=== PATIENT | female | born 1980 | race Two or more races ===

== ENCOUNTER → 2020-06-19 14:16 | Outpatient (BNVA) | payer MEDICAID, SELFPAY | PROVIDERS: Visit Provider Obstetrics & Gynecology | DX: Z30.09 Encounter for other general counseling and advice on contraception (principal) | CPT/HCPCS: 99213 ==

== ENCOUNTER 2020-07-06 11:12 | Outpatient (REF) | payer MEDICAID, SELFPAY ==
--- NOTE | 2020-07-06 11:16 | MM_ITS ---
EXAMINATION: MM SCREENING DIGITAL BREAST TOMOSYNTHESIS, BILATERAL CLINICAL INFORMATION: Screening. Asymptomatic. The lifetime risk of breast cancer based on the Tyrer-Cuzick Model is 7.0%. COMPARISON: Mammography: June 18, 2017 and studies dating back to July 09, 2013 TECHNIQUE: Digital breast tomosynthesis is performed in both the craniocaudal and mediolateral oblique views along with computer-aided detection (CAD). Synthesized 2D images are generated from the tomosynthesis. FINDINGS: The breasts are heterogeneously dense, which may obscure small masses (ACR BI-RADS breast composition Category c). There are no significant masses, abnormal calcifications, or other abnormalities. MM/MM tomosynthesis screening BI IMPRESSION: There are no significant changes from prior study. ASSESSMENT: BI-RADS 1: Negative RECOMMENDATION: Routine annual mammography screening. This patient's information was entered into a reminder system with a target due date for their next mammogram.
== END 2020-07-06 11:13 | disposition home or self-care (01) ==
LOC: HO.MAMMO 11:12
PROVIDERS: Visit Provider Advanced Practice Midwife
DX: Z12.31 Encounter for screening mammogram for malignant neoplasm of breast (principal)
CPT/HCPCS: 77063; 77067

== ENCOUNTER 2020-07-07 08:59 | Outpatient (REF) | payer MEDICAID, SELFPAY | END 2020-07-07 09:00 | disposition home or self-care (01) | LOC: HO.LAB 08:59 | PROVIDERS: Visit Provider Internal Medicine | DX: Z20.828 Contact with and (suspected) exposure to other viral communicable diseases (principal) | CPT/HCPCS: C9803; U0003 ==

== ENCOUNTER 2020-08-03 12:34 | Outpatient (REF) | payer MEDICAID, SELFPAY | END 2020-08-03 12:35 | disposition home or self-care (01) | LOC: HO.LAB 12:34 | PROVIDERS: Visit Provider Internal Medicine | DX: Z20.828 Contact with and (suspected) exposure to other viral communicable diseases (principal) | CPT/HCPCS: C9803; U0003 ==

== ENCOUNTER 2020-09-01 14:53 | Outpatient (REF) | payer MEDICAID, SELFPAY | END 2020-09-01 14:54 | disposition home or self-care (01) | LOC: HO.LAB 14:53 | PROVIDERS: Visit Provider Internal Medicine | DX: Z20.828 Contact with and (suspected) exposure to other viral communicable diseases (principal) | CPT/HCPCS: 36415; C9803; U0003 ==

== ENCOUNTER → 2020-11-22 13:45 | Outpatient (BNVA) | payer MEDICAID, SELFPAY | PROVIDERS: Visit Provider Obstetrics & Gynecology | DX: Z30.09 Encounter for other general counseling and advice on contraception (principal) | CPT/HCPCS: 99212 ==

== ENCOUNTER 2020-11-23 06:46 | Day surgery (SDC) | payer MEDICAID, SELFPAY ==
[2020-11-16 12:10] VITALS: BMI 27.8
--- NOTE | 2020-11-22 10:21 | P.CONAN_ITS ---
Documented by User: Francia Triplett 11/22/20 10:22 HPI - Anesthesia Eval Consult details Narrative: 40yo F for Salpingectomy Laproscopic PMFSH Past Medical History Medical History Patient denies medical problems Family History Family History Maternal Grandmother Breast cancer Surgical History Surgical History No significant past surgical history Social History Social History (Updated 11/23/20 @ 07:24 by Estelle Fernández) Alcohol intake: current Alcohol intake frequency: holidays/special occasions only Smoking Status: Current some day smoker Cigarettes Per Day: 2 Smoked in Last 30 Days: Yes Use of substances other than those prescribed or required for medical reasons: Yes Substance Use Type: Marijuana Substance Use Frequency: Occasionally Last Used Substance: Hours (ago) Advance Directives Information Provided: No Recently lost weight without trying: No Gender identity: female Meds Allergies Allergy/AdvReac Type Severity Reaction Status Date / Time No Known Allergies Allergy Verified 11/22/20 13:58 [No Known Allergies*] Exam Exam Date and Time: November 22, 2020 1021 Height,Weight and Vital Signs: Height 5 ft 2 in Weight 68.946 kg Assessment and Plan Assessment Anesthesia Assessment: Chart Reviewed Documented by User: Estelle Fernández 11/23/20 07:47 [facility] Past Medical History Medical History Patient denies medical problems Family History Family History Maternal Grandmother Breast cancer Family history of problems with anesthesia: No Surgical History Surgical History No significant past surgical history History of Problems with Anesthesia: No (Never had anesthesia) Social History Social History (Updated 11/23/20 @ 07:24 by Estelle Fernández) Alcohol intake: current Alcohol intake frequency: holidays/special occasions only Smoking Status: Current some day smoker Cigarettes Per Day: 2 Smoked in Last 30 Days: Yes Use of substances other than those prescribed or required for medical reasons: Yes Substance Use Type: Marijuana Substance Use Frequency: Occasionally Last Used Substance: Hours (ago) Advance Directives Information Provided: No Recently lost weight without trying: No Gender identity: female Meds Allergies Allergy/AdvReac Type Severity Reaction Status Date / Time No Known Allergies Allergy Verified 11/22/20 13:58 [No Known Allergies*] Exam Height,Weight and Vital Signs: Vital Signs Temp Pulse Resp BP Pulse Ox 11/23/20 06:59 98.1 F 68 16 101/61 98 Pertinent Lab Results Pertinent Lab Results: Lab Results 11/23/20 11/23/20 Range/Units 07:03 07:30 Beta HCG, Quant < 2 mIU/mL Urine Test NEGATIVE (NEGATIVE) Airway Mallampati Class: II TM Dist: >3cm Neck ROM: Full Heart: RRR Lungs: CTAB Assessment and Plan Assessment Anesthesia Assessment: Anesthesia Plan Discussed and Chart Reviewed Final Anesthetic Review NPO: Yes ASA Class: II Final Preanesthetic Review: No Changes in Pt Med Stat, Meds/Allgs Chart Reviewed, Consent Obtained/Reviewed and Anes Risks/Benef Reviewed Patient Risk: Low Procedure Risk: Intermediate Assessment/Block/Sedation in SS: Assess/Block/Sedation-SS Anesthetic Plan Anesthetic Plan: GA Disposition: Standard PACU
[2020-11-23] VITALS (7 sets, daily range): BP systolic 101–144; BP diastolic 61–83; PULSE 58–74; RESP 16–18; TEMP 36.3–36.7; O2SAT 98–100
--- NOTE | 2020-11-23 07:14 | MHC.SHP ---
Pre-Procedural Eval Section A The patient is an INPATIENT: No Changes since office visit: No Cold of Flu in the past 2 weeks, No New Medical Problems, No Changes in Medication and No Patient answered all questions The History & Physical has been completed within 30 days and I have reviewed it.: Yes Section B Chief Complaint: Unwanted Fertility Allergies: Allergies Allergy/AdvReac Type Severity Reaction Status Date / Time No Known Allergies Allergy Verified 11/22/20 13:58 [No Known Allergies*] Plan I have reviewed the history and physical and performed a pertinent physical examination on my patient. No changes have occurred unless specified.
--- NOTE | 2020-11-23 07:15 | W.PM.OPN ---
Operative Note Operative Note Date of Service: 11/23/20 Narrative: Pre-Procedure Diagnosis: unwanted fertility Post-Op Diagnosis: unwanted fertility Procedures performed: laparoscopic bilateral salpingectomy Ms. Kiser is a 40 year old who has completed her family planning and desires a permanent form of sterilization. Surgical Risks: The patient was informed of the risks and benefits of the procedure. Risks included but were not limited to bleeding; infection; injury to the vulva, vagina, cervix, uterus intestines, bladder, nerves, and blood vessels. The patient was counseled on the risk of sterilization failure being about 1% on average. The patient was informed that in the event a occurs, the risk of ectopic is increased. The patient expressed understanding of the risks involved, all questions were answered, and the patient consented to the procedure. The patient had valid sterilization consent at the time of the procedure. The patient was taken to the operating room where a time out was performed to confirm correct patient and correct procedure. General anesthesia was established. The patient was then positioned on the operating table in the dorsal lithotomy position with the legs supported using stirrups. All pressure points were padded and a Taj hugger was placed to maintain control of core body temperature. The patient was then prepped and draped in the usual sterile fashion. A red rubber catheter was inserted and 25mL urine obtained (the patient voided shortly prior to the procedure). Attention was turned to the abdomen where a 5mm vertical infraumbilical incision was made. The 5mm trocar was introduced under direct visualization using the laparoscopy within the sleeve of the trocar. After intra-abdominal placement had been confirmed, the trocar was removed leaving the sleeve in place. The camera was introduced and pneumoperitoneum was established using carbon dioxide. Inspection of the abdominal cavity showed no gross abnormalities and there was no evidence of injury to the bowel, bladder, or vasculature. Attention was turned to the pelvis. The patient was placed into Trendelenburg position. The fallopian tubes and ovaries were visualized bilaterally. There were no abnormalities noted. A small incision was made on the patient's left approximately 2cm superior and 2cm medial to the left ASIS. A 5mm trocar was introduced through this incision under direct visualization with the laparoscope. A small incision was made on the patient's right approximately 2cm superior and 2cm medial to the right ASIS. The fallopian tubes were inspected bilaterally and the fimbriated ends of the fallopian tube were visualized bilaterally. The distal end of the right tube was grasped and lifted up and being careful to avoid the ovarian vessels, salpingectomy was performed walking the Ligasure device from the distal to the medial end of the tube, where it was cauterized and cut from the uterus at the cornua and removed through the trocar. The identical procedure was then performed on the left. The tubes were sent to pathology for analysis. The pneumoperitoneum was then evacuated. The laparoscope was removed and the trocar sleeves were removed. The skin incisions were closed with an interrupted 3-0 Vicryl suture and Dermabond was then applied. Good hemostasis was confirmed. The patient was transferred to the recovery room in stable condition. All needle, sponge, and instrument counts were noted to be correct x2 at the end of the procedure.
[2020-11-23] MEDS: Lactated Ringers 1,000 ML 100 ML IVCONT (07:24)
[2020-11-23] MEDS: Acetaminophen 325 MG TABLET 650 MG PO (07:25)
[2020-11-23 07:36] LABS: HCG Quantitative < 2 mIU/mL
[2020-11-23 07:44] LABS: UPreg QC Valid YES; Urine Pregnancy NEGATIVE (NEGATIVE)
[2020-11-23] MEDS: oxyCODONE HCl Immed Release 5 MG TABLET PO (09:06)
== END 2020-11-23 10:31 | disposition home or self-care (01) ==
LOC: HO.SSS 06:46
PROVIDERS: Anesthesiology; Visit Provider Obstetrics & Gynecology
PROC: (CPT 58661; principal; 2020-11-23 07:30)
DX: Z30.2 Encounter for sterilization (principal); F17.210 Nicotine dependence, cigarettes, uncomplicated; F12.90 Cannabis use, unspecified, uncomplicated
CPT/HCPCS: 58661; 36415; 81025; 84702; 88302; J1100; J2250; J2405; J3010

== ENCOUNTER 2020-12-21 12:14 | Outpatient (REF) | payer MEDICAID, SELFPAY ==
[2020-12-21 12:36] LABS: COVID-19 Test Negative (Negative)
== END 2020-12-21 12:15 | disposition home or self-care (01) ==
LOC: HO.LAB 12:14
PROVIDERS: Visit Provider Internal Medicine
DX: Z20.822 Contact with and (suspected) exposure to COVID-19 (principal)
CPT/HCPCS: 36415; 87635; C9803

== ENCOUNTER 2021-01-01 11:35 | Outpatient (REF) | payer MEDICAID, SELFPAY ==
[2021-01-01 12:03] LABS: COVID-19 Test Negative (Negative)
== END 2021-01-01 11:36 | disposition home or self-care (01) ==
LOC: HO.LAB 11:35
PROVIDERS: Visit Provider Internal Medicine
DX: Z20.822 Contact with and (suspected) exposure to COVID-19 (principal)
CPT/HCPCS: 36415; 87635; C9803

== ENCOUNTER 2021-02-13 10:28 | Outpatient (REF) | payer MEDICAID, SELFPAY ==
--- NOTE | ~2021-02-13 | XR_ITS ---
EXAMINATION: XR ELBOW, LEFT CLINICAL INFORMATION: Left elbow pain COMPARISON: None TECHNIQUE: AP, lateral, and oblique views of the left elbow. FINDINGS: The bones and soft tissues are normal. No fracture or joint effusion. Alignment is anatomic. Joint spaces are maintained. XR/XR elbow LT min 3V IMPRESSION: Normal left elbow.
== END 2021-02-13 10:29 | disposition home or self-care (01) ==
LOC: HO.XRAY 10:28
PROVIDERS: PCP Nurse Practitioner Family; Visit Provider Emergency Medicine
DX: M25.522 Pain in left elbow (principal)
CPT/HCPCS: 73080

== ENCOUNTER 2021-07-11 11:33 | Outpatient (REF) | payer MEDICAID, SELFPAY ==
--- NOTE | ~2021-07-11 | MM_ITS ---
EXAMINATION: MM SCREENING DIGITAL BREAST TOMOSYNTHESIS, BILATERAL CLINICAL INFORMATION: Screening. Asymptomatic. The lifetime risk of breast cancer based on the Tyrer-Cuzick Model is 10%. COMPARISON: Mammography: 07/06/2020, 06/18/2017, 07/05/2014, 07/09/2013 TECHNIQUE: Digital breast tomosynthesis is performed in both the craniocaudal and mediolateral oblique views along with computer-aided detection (CAD). Synthesized 2D images are generated from the tomosynthesis. FINDINGS: There are scattered areas of fibroglandular density (ACR BI-RADS breast composition Category b). Breast tissue composition borders on heterogeneously dense. Parenchymal pattern is similar to prior studies and there is no interval mass or architectural abnormality or developing density. The axilla and skin contours are unremarkable. Left breast regional calcifications mid central upper outer quadrant, increased from prior studies. Patient will be recalled to further characterize with additional magnification views. MM/MM tomosynthesis screening BI IMPRESSION: 1. Left: Calcifications regional mid central upper outer breast, increased. 2. Right: No mammographic evidence of malignancy. ASSESSMENT: BI-RADS 0: Incomplete - Need Additional Imaging Evaluation RECOMMENDATION: 1. Additional views of the left breast (magnification CC, magnification ML). 2. Radiology department staff will contact the patient for additional imaging. This patient's information was entered into a reminder system with a target due date for their next mammogram.
== END 2021-07-11 11:34 | disposition home or self-care (01) ==
LOC: HO.MAMMO 11:33
PROVIDERS: Visit Provider Nurse Practitioner Family
DX: Z12.31 Encounter for screening mammogram for malignant neoplasm of breast (principal)
CPT/HCPCS: 77063; 77067

== ENCOUNTER 2021-07-20 11:49 | Outpatient (REF) | payer MEDICAID, SELFPAY ==
--- NOTE | ~2021-07-20 | MM_ITS ---
EXAMINATION: MM DIAGNOSTIC DIGITAL MAMMOGRAPHY, LEFT CLINICAL INFORMATION: Recall from screening for increased calcifications central upper outer left breast COMPARISON: Mammography: 07/11/2021 and prior studies dating back to diagnostic exam 07/09/2013. TECHNIQUE: Digital mammography is performed in the following views: Magnification CC, magnification ML FINDINGS: There are scattered areas of fibroglandular density (ACR BI-RADS breast composition Category b). There are increased calcifications in the central 2:30-3:00 left breast. The calcifications are segmentally distributed and vary in size, most are round. There are some focal fine amorphous calcifications in this area as well. Results are discussed with the patient at time of visit. Stereotactic sampling recommended. MM/MM added views LT IMPRESSION: Increased calcifications anterior outer left breast. ASSESSMENT: BI-RADS 4: Suspicious (subcategory 4A: Low suspicion for malignancy) RECOMMENDATION: Stereotactic biopsy left breast calcifications. This patient's information was entered into a reminder system with a target due date for their next mammogram.
== END 2021-07-20 11:50 | disposition home or self-care (01) ==
LOC: HO.MAMMO 11:49
PROVIDERS: Visit Provider Nurse Practitioner Family
DX: R92.1 Mammographic calcification found on diagnostic imaging of breast (principal)
CPT/HCPCS: 77061; 77065

== ENCOUNTER → 2021-08-06 08:21 | Outpatient (BNVA) | payer MEDICAID, SELFPAY | PROVIDERS: PCP Nurse Practitioner Family; Referring Provider Nurse Practitioner Family; Visit Provider Surgery | DX: R92.1 Mammographic calcification found on diagnostic imaging of breast (principal) | CPT/HCPCS: 99202 ==

== ENCOUNTER 2021-08-08 07:57 | Outpatient (REF) | payer MEDICAID, SELFPAY ==
--- NOTE | ~2021-08-08 | MM_ITS ---
EXAMINATION: STEREOTACTIC TOMOSYNTHESIS-GUIDED VACUUM-ASSISTED BREAST BIOPSY, LEFT SPECIMEN RADIOGRAPH, LEFT POST PROCEDURE DIGITAL MAMMOGRAM, LEFT CLINICAL INFORMATION: Increased segmental calcifications central upper outer left breast. TC score 10%. COMPARISON: Mammography 07/20/2021, 07/11/2021, 07/06/2020. TECHNIQUE/PROCEDURE: Informed consent was obtained from the patient after discussion of the benefits, risks, and alternatives to biopsy today. Patient appeared to understand. Gave opportunity for questions. Patient signed consent form. BIOPSY TABLE: [employer] Affirm Prone Biopsy System. LESION: Calcifications mid outer left breast. LOCAL ANESTHESIA: 10 mL carbonated 1% lidocaine; 10 mL 1% lidocaine with epinephrine. DERMATOTOMY: Single skin desi dermatotomy performed. NEEDLE: [place] [employer]iva 9-gauge vacuum assisted core biopsy device. APPROACH: caudal cranial. TARGETING: Combination of digital breast tomosynthesis and stereotactic digital mammography used for targeting. CORES: 7. CLIP: [employer] SecurMark T-shaped marker. SPECIMEN RADIOGRAPH: Specimen radiograph is taken in separate room using digital mammography. The index calcifications are in the excised cores. There are over 50 calcifications in the cores. POST PROCEDURE UNILATERAL DIGITAL MAMMOGRAM: The post biopsy mammogram is performed in separate room using separate digital mammography equipment from the biopsy procedure. CC and ML views are obtained. There are scattered areas of fibroglandular density (breast composition category: b). The clip marker is in position. There is perhaps 6 mm accordion effect superiorly from the biopsy cavity. The calcifications are decreased at the biopsy site. No gross hematoma. The patient tolerated the procedure well. No immediate complications. Home instructions reviewed with the patient. Final pathology results are pending. MM/MM stereotactic biopsy LT IMPRESSION: 1. Digital tomosynthesis-guided core biopsy left breast with clip placement. 2. Specimen radiograph taken and post procedure mammogram. There is satisfactory positioning of the biopsy clip. 3. Final pathology results pending. An addendum report will be issued.
[2021-08-08] MEDS: Lidocaine HCl 1 % 20 ML VIAL 10 ML SUBCUT (08:54)
[2021-08-08] MEDS: Sodium Bicarbonate 8.4% 50 MEQ/50 ML VIAL SUBCUT (08:57)
== END 2021-08-08 07:58 | disposition home or self-care (01) ==
LOC: HO.MAMMO 07:57
PROVIDERS: PCP Nurse Practitioner Family; Visit Provider Surgery
DX: R92.1 Mammographic calcification found on diagnostic imaging of breast (principal)
CPT/HCPCS: 19081; 88305; 88341; 88342; A4648

== ENCOUNTER → 2021-08-13 09:00 | Outpatient (BNVA) | payer MEDICAID, SELFPAY | PROVIDERS: PCP Nurse Practitioner Family; Referring Provider Nurse Practitioner Family; Visit Provider Surgery | DX: R92.1 Mammographic calcification found on diagnostic imaging of breast (principal) | CPT/HCPCS: 99212 ==

== ENCOUNTER 2022-05-13 11:43 | Outpatient (REF) | payer MEDICAID, SELFPAY ==
[2022-05-13 13:30] LABS: MANUAL DIFF FLAG NO
[2022-05-13 13:37] LABS: Basophils Absolute Auto 0.1 X10*3/uL (0.0-0.2); Basophils Percent Auto 0.6 % (0-2); Eosinophils Percent Auto 0.3 % (0-4); Hematocrit 36.6 % (37.0-47.0); Hemoglobin 12.3 g/dl (12.0-16.0); Imm Gran Abs Auto 0.04 X10*3/uL (0.00-0.03); Imm Gran Pct Auto 0.5 % (0.0-0.4); Lymphocytes Absolute Auto 3.2 X10*3/uL (1.2-4.9); Lymphocytes Percent Auto 36.9 % (20-40); Mean Corpuscular HGB Conc 33.6 g/dl (31.0-35.0); Mean Corpuscular Hemoglobin 31.5 pg (27.0-33.0); Mean Corpuscular Volume 93.6 fL (80.0-98.0); Mean Platelet Volume 10.5 fL (9.4-12.3); Monocytes Absolute Auto 0.7 X10*3/uL (0.1-1.2); Monocytes Percent Auto 7.7 % (2-11); Neutrophils Absolute Auto 4.7 x10*3/uL (2.0-8.3); Platelet Count 225 X10*3/uL (160-400); Red Blood Count 3.91 X10*6/uL (4.20-5.50); Red Cell Distribution Width 12.2 % (11.0-16.0); White Blood Count 8.8 X10*3/uL (4.8-10.8)
[2022-05-13 14:00] LABS: Alanine Aminotransferase 22 U/L (0-31); Albumin Level 4.2 g/dL (3.5-5.0); Alkaline Phosphatase 59 U/L (39-117); Anion Gap 15 (12-20); Aspartate Amino Transferase 17 U/L (5-31); Bilirubin Total 0.5 mg/dL (0.0-1.0); Blood Urea Nitrogen 11 mg/dL (9-16); Calcium 9.1 mg/dL (8.4-10.2); Carbon Dioxide 22 mmol/L (22-29); Chloride 105 mmol/L (96-108); Cholesterol 214 mg/dL; Estimated Glomerular Filt Rate > 60; Glucose Fasting 84 mg/dL (60-99); HDL Cholesterol 68 mg/dL; LDL Cholesterol Calculated 132 mg/dl; Sodium 138 mmol/L (135-145); Total Protein 7.1 g/dL (6.5-8.0); Triglycerides 72 mg/dL
[2022-05-13 14:24] LABS: Thyroid Stimulating Hormone 1.35 uIU/mL (0.32-4.0)
[2022-05-13 17:07] LABS: CT PCR NOT DETECTED (Not Detect.); NG PCR NOT DETECTED (Not Detect.)
== END 2022-05-13 11:44 | disposition home or self-care (01) ==
LOC: HO.10HDL 11:43
PROVIDERS: Visit Provider Internal Medicine
DX: Z00.00 Encounter for general adult medical examination without abnormal findings (principal); Z11.3 Encounter for screening for infections with a predominantly sexual mode of transmission; N39.3 Stress incontinence (female) (male)
CPT/HCPCS: 80053; 80061; 84443; 85025; 87491; 87591

== ENCOUNTER 2022-07-22 10:19 | Outpatient (REF) | payer MEDICAID, SELFPAY ==
[2022-07-23 08:55] LABS: BV Int Neg Control Negative (Negative); BV Int Pos Control Positive (Positive)
[2022-07-25 11:38] LABS: HPV mRNA E6/E7 rflx Not Detected (Not Detected)
== END 2022-07-22 10:20 | disposition home or self-care (01) ==
LOC: HO.LNP 10:19
PROVIDERS: Visit Provider Advanced Practice Midwife
DX: Z01.419 Encounter for gynecological examination (general) (routine) without abnormal findings (principal)
CPT/HCPCS: 87480; 87491; 87510; 87591; 87624; 87660; 88142

== ENCOUNTER 2022-07-26 19:32 | Emergency (ER) | payer MEDICAID, SELFPAY ==
--- NOTE | ~2022-07-26 | CT_ITS ---
CT HEAD WITHOUT CONTRAST CLINICAL INFORMATION: Right-sided numbness. COMPARISON: None available. TECHNIQUE: Contiguous axial imaging was performed from the skull base to vertex without intravenous administration of contrast. This CT examination was performed using dose optimization techniques as appropriate, variously including the following: *Automated exposure control *Adjustment of mA and/or kV according to patient size (this includes techniques or standardized protocols for targeted exams where dose is matched to indication/reason for exam; i.e. extremities or head) *Use of iterative reconstruction technique FINDINGS: There is no intracranial hemorrhage, hydrocephalus, extra-axial surface collection, midline shift, or other herniation pattern. Cramer to white matter differentiation is diffusely maintained without evidence of an evolved acute territorial infarct. The basilar cisterns are preserved. No significant soft tissue abnormality. No acute osseous abnormality. The paranasal sinuses and the mastoid air cells are well aerated. CT/CT head/brain wo IV con IMPRESSION: No acute intracranial abnormality.
--- NOTE | ~2022-07-26 | XR_ITS ---
EXAMINATION: XR chest 2V CLINICAL INFORMATION: Reason for Exam right sided chest pain COMPARISON: None TECHNIQUE: 2 views of the chest FINDINGS: Calcified left lower lobe granuloma. Lungs are otherwise clear. No pneumothorax or pleural effusion. Normal cardiomediastinal silhouette. XR/XR chest 2V IMPRESSION: Calcified left lower lobe granuloma. Lungs are otherwise clear.
--- NOTE | 2022-07-26 20:15 | ECG_ITS ---
Test Reason : chest pain Blood Pressure : / mmHG Vent. Rate : 066 BPM Atrial Rate : 066 BPM P-R Int : 148 ms QRS Dur : 082 ms QT Int : 378 ms P-R-T Axes : 066 031 008 degrees QTc Int : 396 ms Normal sinus rhythm Normal ECG No previous ECGs available Referred By: Eda Tejada Electronically Signed By:David Garibay
--- NOTE | 2022-07-26 20:15 | ED.GENADULT ---
HPI - General Adult General Chief complaint: General Medical Stated complaint: numbness on face and r arm Time Seen by Provider: 07/26/22 21:25 Source: patient Mode of arrival: ambulatory Limitations: no limitations Related Data Home Medications Medication Instructions Recorded Confirmed No Known Home Meds 07/22/22 07/22/22 Allergies Allergy/AdvReac Type Severity Reaction Status Date / Time No Known Allergies Allergy Verified 07/22/22 09:35 [No Known Allergies*] [facility] Past Medical History Medical History Breast calcification, left Patient denies medical problems Surgical History Hx of tubal ligation Family History Family History Maternal Grandmother Breast cancer Other Lung cancer Social History Social History Alcohol intake: current Alcohol intake frequency: holidays/special occasions only Cigarettes Per Day: 2 Substance Use Type: Marijuana Advance Directives: No Advance Directives Information Provided: No Gender identity: Female Physical Exam ED Vital Signs: Vital Signs - 24 hr 07/26/22 20:17 Temperature 97.9 F Pulse Rate 87 Respiratory Rate 18 Blood Pressure 140/85 H Pulse Oximetry 100 Oxygen Delivery Method Room Air BMI result Body Mass Index 31.1 Course Course Course Narrative: RME performed and completed by Eda Tejada PA-C. Patient is a 42 year old female presenting to the emergency department with right sided arm / chest pain and right sided arm and face numbness. CBC, CMP, Mag, Troponin, EKG, CXR, and head CT ordered. Patient to be placed back in the waiting room pending results and bed availability. Patient seen by Dr. Kirkland who created and completed a separate note, patient ultimately left against medical advice. Medical Decision Making Lab Data Result diagrams: 07/26/22 21:39 07/26/22 22:50 Labs: Lab Results 07/26/22 07/26/22 07/26/22 Range/Units 21:39 21:39 21:39 WBC 6.8 (4.8-10.8) X10*3/uL RBC 4.00 L (4.20-5.50) X10*6/uL Hgb 12.7 (12.0-16.0) g/dl Hct 36.7 L (37.0-47.0) % MCV 91.8 (80.0-98.0) fL MCH 31.8 (27.0-33.0) pg MCHC 34.6 (31.0-35.0) g/dl RDW 12.0 (11.0-16.0) % Plt Count 254 (160-400) X10*3/uL MPV 9.7 (9.4-12.3) fL Immature Gran % (Auto) 0.1 (0.0-0.4) % Neut % (Auto) 49.6 (45-73) % Lymph % (Auto) 38.8 (20-40) % [place] % (Auto) 10.4 (2-11) % Eos % (Auto) 0.4 (0-4) % Baso % (Auto) 0.7 (0-2) % Lymph # (Auto) 2.6 (1.2-4.9) X10*3/uL [place] # (Auto) 0.7 (0.1-1.2) X10*3/uL Eos # (Auto) 0.0 (0.0-0.4) X10*3/uL Baso # (Auto) 0.1 (0.0-0.2) X10*3/uL Abs Immat Gran (auto) 0.01 (0.00-0.03) X10*3/uL Absolute Neuts (auto) 3.4 (2.0-8.3) x10*3/uL Absolute Nucleated RBC 0.000 (0.0-0.012) X10*3/uL Nucleated RBC % (auto) 0.0 (0.0-0.2) /100WBC Sodium 143 (135-145) mmol/L Potassium 3.4 (3.3-5.1) mmol/L Chloride 106 (96-108) mmol/L Carbon Dioxide 26 (22-29) mmol/L Anion Gap 14 (12-20) BUN 9 (9-16) mg/dL Creatinine 0.78 (0.5-1.4) mg/dL Estim Creat Clear Calc 86.0 Estimated GFR > 60 Random Glucose 95 (60-115) mg/dL Calcium 9.9 D (8.4-10.2) mg/dL Magnesium 2.2 (1.6-2.6) mg/dL Total Bilirubin 0.4 (0.0-1.0) mg/dL AST 44 H D (5-31) U/L ALT 56 H (0-31) U/L Alkaline Phosphatase 59 (39-117) U/L Troponin I High Sens < 3.5 (<3.5-17.0) ng/L Total Protein 7.5 (6.5-8.0) g/dL Albumin 4.6 (3.5-5.0) g/dL Beta HCG, Quant < 2 mIU/mL COVID-19 ([facility]) (Negative) COVID-19 Clin Com 07/26/22 07/26/22 Range/Units 22:50 22:50 WBC (4.8-10.8) X10*3/uL RBC (4.20-5.50) X10*6/uL Hgb (12.0-16.0) g/dl Hct (37.0-47.0) % MCV (80.0-98.0) fL MCH (27.0-33.0) pg MCHC (31.0-35.0) g/dl RDW (11.0-16.0) % Plt Count (160-400) X10*3/uL MPV (9.4-12.3) fL Immature Gran % (Auto) (0.0-0.4) % Neut % (Auto) (45-73) % Lymph % (Auto) (20-40) % [place] % (Auto) (2-11) % Eos % (Auto) (0-4) % Baso % (Auto) (0-2) % Lymph # (Auto) (1.2-4.9) X10*3/uL [place] # (Auto) (0.1-1.2) X10*3/uL Eos # (Auto) (0.0-0.4) X10*3/uL Baso # (Auto) (0.0-0.2) X10*3/uL Abs Immat Gran (auto) (0.00-0.03) X10*3/uL Absolute Neuts (auto) (2.0-8.3) x10*3/uL Absolute Nucleated RBC (0.0-0.012) X10*3/uL Nucleated RBC % (auto) (0.0-0.2) /100WBC Sodium 143 (135-145) mmol/L Potassium 3.6 (3.3-5.1) mmol/L Chloride 107 (96-108) mmol/L Carbon Dioxide 27 (22-29) mmol/L Anion Gap 13 (12-20) BUN 10 (9-16) mg/dL Creatinine 0.76 (0.5-1.4) mg/dL Estim Creat Clear Calc 88.3 Estimated GFR > 60 Random Glucose 104 (60-115) mg/dL Calcium 9.5 (8.4-10.2) mg/dL Magnesium (1.6-2.6) mg/dL Total Bilirubin 0.4 (0.0-1.0) mg/dL AST 38 H (5-31) U/L ALT 50 H (0-31) U/L Alkaline Phosphatase 53 (39-117) U/L Troponin I High Sens (<3.5-17.0) ng/L Total Protein 6.7 (6.5-8.0) g/dL Albumin 4.2 (3.5-5.0) g/dL Beta HCG, Quant mIU/mL COVID-19 ([facility]) Negative (Negative) COVID-19 Clin Com See Note Discharge Plan Discharge Clinical Impression: Brain TIA, Chest pain Patient Disposition: Left Against Medical Advice Instructions: Transient Ischemic Attack (ED), Chest Pain (DC) Prescriptions: No Action No Known Home Meds Referrals: [facility] [Primary Care Provider] - Stand Alone Forms: Against Medical Advice Interventions: ED Discharge Assessment Last Done: 07/26/22 23:24 Discharge Date/Time: 07/26/22 23:28
[2022-07-26 20:17] VITALS: BP 140/85; PULSE 87; RESP 18; TEMP 36.6; O2SAT 100; BMI 31.1
[2022-07-26 21:58] LABS: MANUAL DIFF FLAG NO
[2022-07-26 21:59] LABS: Basophils Absolute Auto 0.1 X10*3/uL (0.0-0.2); Basophils Percent Auto 0.7 % (0-2); Eosinophils Percent Auto 0.4 % (0-4); Hematocrit 36.7 % (37.0-47.0); Hemoglobin 12.7 g/dl (12.0-16.0); Imm Gran Abs Auto 0.01 X10*3/uL (0.00-0.03); Imm Gran Pct Auto 0.1 % (0.0-0.4); Lymphocytes Absolute Auto 2.6 X10*3/uL (1.2-4.9); Lymphocytes Percent Auto 38.8 % (20-40); Mean Corpuscular HGB Conc 34.6 g/dl (31.0-35.0); Mean Corpuscular Hemoglobin 31.8 pg (27.0-33.0); Mean Corpuscular Volume 91.8 fL (80.0-98.0); Mean Platelet Volume 9.7 fL (9.4-12.3); Monocytes Absolute Auto 0.7 X10*3/uL (0.1-1.2); Monocytes Percent Auto 10.4 % (2-11); Neutrophils Absolute Auto 3.4 x10*3/uL (2.0-8.3); Neutrophils Percent Auto 49.6 % (45-73); Platelet Count 254 X10*3/uL (160-400); White Blood Count 6.8 X10*3/uL (4.8-10.8)
[2022-07-26 22:15] LABS: Alanine Aminotransferase 56 U/L (0-31); Albumin Level 4.6 g/dL (3.5-5.0); Alkaline Phosphatase 59 U/L (39-117); Anion Gap 14 (12-20); Aspartate Amino Transferase 44 U/L (5-31); Blood Urea Nitrogen 9 mg/dL (9-16); Calcium 9.9 mg/dL (8.4-10.2); Carbon Dioxide 26 mmol/L (22-29); Chloride 106 mmol/L (96-108); Estimated Glomerular Filt Rate > 60; Glucose Random 95 mg/dL (60-115); Magnesium 2.2 mg/dL (1.6-2.6); Potassium 3.4 mmol/L (3.3-5.1); Sodium 143 mmol/L (135-145); Total Protein 7.5 g/dL (6.5-8.0)
--- NOTE | 2022-07-26 22:19 | ED.GENADULT ---
HPI - General Adult General Chief complaint: General Medical Stated complaint: numbness on face and r arm Time Seen by Provider: 07/26/22 21:25 Source: patient Mode of arrival: ambulatory Limitations: no limitations History of Present Illness HPI narrative: Patient is a 42-year-old presents today with having episode of right arm right shoulder right chest right face numbness and pain. Patient symptoms last about 20 minutes. Was sitting driving at the time. Not associated with any diaphoresis. No leg swelling. No history of diabetes. Positive history of high cholesterol positive previous history of smoking no history of [place] no family history of coronary artery disease. Symptoms improved gradually over time. Had a 2nd episode while patient was eating dinner. Has no history of being on control. No history of leg swelling. No history of anxiety. No coughing no congestion or upper respiratory symptoms. Patient is from home. Related Data Home Medications Medication Instructions Recorded Confirmed No Known Home Meds 07/22/22 07/22/22 Allergies Allergy/AdvReac Type Severity Reaction Status Date / Time No Known Allergies Allergy Verified 07/22/22 09:35 [No Known Allergies*] Review of Systems Review of Systems: Positive right-sided chest pain Yes all other systems are reviewed and are negative PMFSH Past Medical History Attestation statement: The following information was validated with the patient. Medical History Breast calcification, left Patient denies medical problems Surgical History Hx of tubal ligation Family History Family History Maternal Grandmother Breast cancer Other Lung cancer Social History Social History Alcohol intake: current Alcohol intake frequency: holidays/special occasions only Cigarettes Per Day: 2 Substance Use Type: Marijuana Advance Directives: No Advance Directives Information Provided: No Gender identity: Female Physical Exam ED Vital Signs: Vital Signs - 24 hr 07/26/22 20:17 Temperature 97.9 F Pulse Rate 87 Respiratory Rate 18 Blood Pressure 140/85 H Pulse Oximetry 100 Oxygen Delivery Method Room Air BMI result Body Mass Index 31.1 Appearance: Alert. Oriented X3. No acute distress. Eyes: Pupils equal, round and reactive to light. ENT: Pharynx normal. Neck: Normal inspection. Neck supple. No lymph nodes noted. No crepitus CVS: Normal heart rate and rhythm. Pulses normal. Normal S1 and S2 Respiratory: No respiratory distress. Breath sounds normal. No Wheezing. No rales Abdomen: Soft and nontender. No rigidity. No distention. good BS x4 Skin: Skin warm and dry. Normal skin color. Normal skin turgor. Extremities: No lower extremity edema. Neurovascular intact to all extremities. No Lacerations. No Rash Neuro: Oriented X 3. No motor deficit. No sensory deficit. Moving all extermities. No slurred speech NIH Stroke Scale Internal: Initial- Upon Arrival Level of Consciousness: Alert Level of Consciousness Questions: Answers both questions correctly Level of Consciousness Commands: Performs both tasks correctly Best Gaze: Normal Visual: No visual loss Facial Palsy: Normal Motor Arm (Right): No drift Motor Arm (Left): No drift Motor Leg (Right): No drift Motor Leg (Left): No drift Limb Ataxia: Absent Sensory: Normal Best Language: No aphasia Dysarthia: Normal Extinction and Inattention: No abnormality Score: 0 Medical Decision Making MDM Narrative Medical decision making narrative: Patient's EKG showed a sinus pattern heart rate is 70 VA QRS QT within normal limits is no acute ST segment elevation. Chest pain is atypical for ACS. Awaiting labs. Awaiting electrolytes. Question numbness to the right arm legs face happen at the same time as when she has the pain. Question TIA. Will likely admit patient for observation overnight. Currently in stable condition Had a long discussion with patient. She does not want to stay she understood the risk of a mini-stroke. Understood the risk of a larger stroke coming up. Understood the risk of [place]. Is leaving against medical advice patient explained she can come back at any time. He states understanding. Lab Data Result diagrams: 07/26/22 21:39 07/26/22 21:39 Labs: Lab Results 07/26/22 07/26/22 07/26/22 Range/Units 21:39 21:39 21:39 WBC 6.8 (4.8-10.8) X10*3/uL RBC 4.00 L (4.20-5.50) X10*6/uL Hgb 12.7 (12.0-16.0) g/dl Hct 36.7 L (37.0-47.0) % MCV 91.8 (80.0-98.0) fL MCH 31.8 (27.0-33.0) pg MCHC 34.6 (31.0-35.0) g/dl RDW 12.0 (11.0-16.0) % Plt Count 254 (160-400) X10*3/uL MPV 9.7 (9.4-12.3) fL Immature Gran % (Auto) 0.1 (0.0-0.4) % Neut % (Auto) 49.6 (45-73) % Lymph % (Auto) 38.8 (20-40) % [place] % (Auto) 10.4 (2-11) % Eos % (Auto) 0.4 (0-4) % Baso % (Auto) 0.7 (0-2) % Lymph # (Auto) 2.6 (1.2-4.9) X10*3/uL [place] # (Auto) 0.7 (0.1-1.2) X10*3/uL Eos # (Auto) 0.0 (0.0-0.4) X10*3/uL Baso # (Auto) 0.1 (0.0-0.2) X10*3/uL Abs Immat Gran (auto) 0.01 (0.00-0.03) X10*3/uL Absolute Neuts (auto) 3.4 (2.0-8.3) x10*3/uL Absolute Nucleated RBC 0.000 (0.0-0.012) X10*3/uL Nucleated RBC % (auto) 0.0 (0.0-0.2) /100WBC Sodium 143 (135-145) mmol/L Potassium 3.4 (3.3-5.1) mmol/L Chloride 106 (96-108) mmol/L Carbon Dioxide 26 (22-29) mmol/L Anion Gap 14 (12-20) BUN 9 (9-16) mg/dL Creatinine 0.78 (0.5-1.4) mg/dL Estim Creat Clear Calc 86.0 Estimated GFR > 60 Random Glucose 95 (60-115) mg/dL Calcium 9.9 D (8.4-10.2) mg/dL Magnesium 2.2 (1.6-2.6) mg/dL AST 44 H D (5-31) U/L ALT 56 H (0-31) U/L Alkaline Phosphatase 59 (39-117) U/L Troponin I High Sens < 3.5 (<3.5-17.0) ng/L Total Protein 7.5 (6.5-8.0) g/dL Albumin 4.6 (3.5-5.0) g/dL Discharge Plan Discharge Clinical Impression: Brain TIA, Chest pain Patient Disposition: Left Against Medical Advice Instructions: Transient Ischemic Attack (ED), Chest Pain (DC) Prescriptions: No Action No Known Home Meds Referrals: [facility] [Primary Care Provider] - Stand Alone Forms: Against Medical Advice
[2022-07-26 22:20] LABS: Troponin-I High Sensitivity < 3.5 ng/L (<3.5-17.0)
[2022-07-26 23:08] LABS: HCG Quantitative < 2 mIU/mL
[2022-07-26 23:21] LABS: COVID-19 Test Negative (Negative)
[2022-07-26 23:25] LABS: Alanine Aminotransferase 50 U/L (0-31); Albumin Level 4.2 g/dL (3.5-5.0); Alkaline Phosphatase 53 U/L (39-117); Anion Gap 13 (12-20); Aspartate Amino Transferase 38 U/L (5-31); Blood Urea Nitrogen 10 mg/dL (9-16); Calcium 9.5 mg/dL (8.4-10.2); Carbon Dioxide 27 mmol/L (22-29); Chloride 107 mmol/L (96-108); Creatinine Clr Calc Pharmacy 88.3; Estimated Glomerular Filt Rate > 60; Glucose Random 104 mg/dL (60-115); Potassium 3.6 mmol/L (3.3-5.1); Sodium 143 mmol/L (135-145); Total Protein 6.7 g/dL (6.5-8.0)
[2022-07-26 23:25] LABS: Bilirubin Total 0.4 mg/dL (0.0-1.0)
[2022-07-26 23:41] LABS: Bilirubin Total 0.4 mg/dL (0.0-1.0)
== END 2022-07-26 23:28 | disposition left against medical advice (07) ==
PROVIDERS: Physician Assistant Medical; Emergency Provider Emergency Medicine Emergency Medical Services
DX: G45.9 Transient cerebral ischemic attack, unspecified (principal); R07.89 Other chest pain; R20.0 Anesthesia of skin; F17.210 Nicotine dependence, cigarettes, uncomplicated; Z71.6 Tobacco abuse counseling; Z20.822 Contact with and (suspected) exposure to COVID-19; Z79.899 Other long term (current) drug therapy
CPT/HCPCS: 36415; 70450; 71046; 80053; 83735; 84484; 84702; 85025; 87635; 93005; 99283

== ENCOUNTER 2022-10-07 10:01 | Outpatient (REF) | payer MEDICAID, SELFPAY ==
--- NOTE | ~2022-10-07 | MM_ITS ---
EXAMINATION: MM SCREENING DIGITAL BREAST TOMOSYNTHESIS, BILATERAL CLINICAL INFORMATION: Screening. Asymptomatic. Left stereotactic biopsy 08/08/2021 (benign breast tissue with papilloma formation, stromal sclerosis, adenosis and calcifications. Multiple papillomas measuring up to 3 mm in greatest dimension. No atypia or malignancy). The lifetime risk of breast cancer based on the Tyrer-Cuzick Model is 11%. COMPARISON: Mammography: 08/08/2021, 07/20/2021, 07/11/2021, 07/06/2020 TECHNIQUE: Digital breast tomosynthesis is performed in both the craniocaudal and mediolateral oblique views along with computer-aided detection (CAD). Synthesized 2D images are generated from the tomosynthesis. FINDINGS: There are scattered areas of fibroglandular density (ACR BI-RADS breast composition Category b). Parenchymal pattern is similar to prior studies. There is no developing density or interval mass or architectural abnormality. There is biopsy clip marker mid upper outer left breast with regional calcifications. The axilla and skin contours are unremarkable. No significant changes. MM/MM tomosynthesis screening BI IMPRESSION: No significant changes from prior studies. ASSESSMENT: BI-RADS 2: Benign RECOMMENDATION: Routine annual mammography screening. This patient's information was entered into a reminder system with a target due date for their next mammogram.
== END 2022-10-07 10:02 | disposition home or self-care (01) ==
LOC: HO.MAMMO 10:01
PROVIDERS: Visit Provider Advanced Practice Midwife
DX: Z12.31 Encounter for screening mammogram for malignant neoplasm of breast (principal)
CPT/HCPCS: 77063; 77067

== ENCOUNTER 2022-10-30 05:49 | Emergency (ER) | payer MEDICAID, SELFPAY ==
--- NOTE | ~2022-10-30 | XR_ITS ---
EXAMINATION: XR FOOT, LEFT CLINICAL INFORMATION: Pain status post fall COMPARISON: None TECHNIQUE: AP, lateral, and oblique views of the left foot. FINDINGS: The bones and soft tissues are normal. No fracture. Alignment is anatomic. Joint spaces are maintained. XR/XR foot LT min 3V IMPRESSION: Normal left foot.
[2022-10-30 06:14] VITALS: BP 99/56; PULSE 70; RESP 16; TEMP 36.8; O2SAT 98; BMI 29.6
--- NOTE | 2022-10-30 07:02 | ED.LOWEXIN ---
HPI - Extremity Injury (Lower) General Chief Complaint: Extremity Injury, Lower Stated Complaint: fell down stairs hurt left foot Time Seen by Provider: 10/30/22 06:45 History of Present Illness HPI Narrative: Patient is 42 years old status post accidental fall complaining of pain to the left foot. Pain on ambulation. Patient fell down to steps of stairs. No head injury pain no nausea no vomiting. No neck pain. Patient is from home. No chest pain or shortness of breath no abdominal pain. No focal weakness Related Data Previous Rx's Medication Instructions Recorded ibuprofen 400 mg tablet 400 mg PO Q6H PRN pain #20 tabs 10/30/22 Allergies Allergy/AdvReac Type Severity Reaction Status Date / Time No Known Allergies Allergy Verified 10/30/22 06:18 [No Known Allergies*] Review of Systems Review of Systems: Positive pain to the left foot Yes all other systems are reviewed and are negative COUNTS INCLUDE 234 BEDS AT THE [facility] Past Medical History Attestation statement: The following information was validated with the patient. Medical History Breast calcification, left Patient denies medical problems Surgical History Hx of tubal ligation Family History Family History Maternal Grandmother Breast cancer Other Lung cancer Social History Social History Alcohol intake: current Alcohol intake frequency: holidays/special occasions only Cigarettes Per Day: 2 Substance Use Type: Marijuana Advance Directives: No Advance Directives Information Provided: Yes Gender identity: Female Physical Exam Vital Signs: Vital Signs: Last Vital Signs Temp 98.2 F 10/30/22 06:14 Pulse 70 10/30/22 06:14 Resp 16 10/30/22 06:14 BP 99/56 L 10/30/22 06:14 Pulse Ox 98 10/30/22 06:14 O2 Del Method 10/30/22 06:14 BMI result Body Mass Index 29.6 Appearance: Alert. Oriented X3. No acute distress. Eyes: Pupils equal, round and reactive to light. ENT: Pharynx normal. Neck: Normal inspection. Neck supple. No lymph nodes noted. No crepitus CVS: Normal heart rate and rhythm. Pulses normal. Normal S1 and S2 Respiratory: No respiratory distress. Breath sounds normal. No Wheezing. No rales Abdomen: Soft and nontender. No rigidity. No distention. good BS x4 Skin: Skin warm and dry. Normal skin color. Normal skin turgor. Extremities: No lower extremity edema. Examination of the left foot and ankle- Minimal pain on palpation of the lateral aspect of the left foot near the base of the 5th metatarsal. There is no tenderness on palpation of the malleolus bilaterally. There is good range of motion in the ankle. Distal toes intact skin intact sensation intact pulses 2+ at dorsalis pedis. Neuro: Oriented X 3. No motor deficit. No sensory deficit. Moving all extermities. No slurred speech Medical Decision Making Differential Diagnosis Fracture, sprain of the ankle versus foot. Patient's x-ray of the foot was grossly negative there is no evidence of fracture. Will suggest for patient to use ice. Elevate. Motrin. Follow-up with orthopedics on an outpatient basis. Admission/Observation No need for admission as patient is well-appearing no systemic complaint. No need for CT scan of the head as patient has no head injury Lab Data MDM Lab Attestation statement: I reviewed the patient's lab results. Independent Interpretation I performed an independent interpretation of an: Plain X-Ray Interpretation: No fracture of the foot Prescription Management I considered prescription management with: Pain Medication Will give patient Motrin for pain Discharge Plan Discharge Clinical Impression: Contusion Patient Disposition: Home, Self-Care Instructions: Foot Sprain (ED) Additional Instructions: rest ice use crutches as needed Prescriptions: New ibuprofen 400 mg tablet 400 mg PO Q6H PRN (Reason: pain) Qty: 20 0RF Referrals: Allan Summers MD [Physician] -
== END 2022-10-30 08:06 | disposition home or self-care (01) ==
PROVIDERS: Emergency Provider Emergency Medicine Emergency Medical Services; PCP Internal Medicine
DX: S90.32XA Contusion of left foot, initial encounter (principal); W10.8XXA Fall (on) (from) other stairs and steps, initial encounter; Y93.89 Activity, other specified; Y92.038 Other place in apartment as the place of occurrence of the external cause; Y99.9 Unspecified external cause status
CPT/HCPCS: 73630; 99282; 99283

== ENCOUNTER 2023-07-25 10:21 | Outpatient (AMB) | payer MEDICAID, SELFPAY ==
[2023-07-25 10:27] VITALS: BMI 28.2
--- NOTE | 2023-07-25 10:27 | A.OFFVIS_ITS ---
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 She has her tubes tied so she does not need to keep track. She has been stressed out and having trouble sleeping. She has been try ing to eat good and has lost some weight and she goes to the gym 2 to 4 times a week with her . She does work a lot. Quit smoking 2 years ago. Her primary care provider keeps changing she just got reassigned back to her old 1 and she is happy about that and will be seeing her soon. [facility] Medical History Breast calcification, left Patient denies medical problems Surgical History Hx of tubal ligation Family History Maternal Grandmother Breast cancer Other Lung cancer Social History (Updated 07/25/23 @ 10:32 by SONNY Frederick) Alcohol intake: current Alcohol intake frequency: holidays/special occasions only Patient Tobacco Use Status: Former Tobacco user Substance Use Type: Marijuana Gender identity: Female Female Reproductive History Menstrual Age of Menarche: 14 Duration of menses: 3-5 days Date of last menstrual period: 07/08/23 control method: other (tubal ligation) Total pregnancies: 2 Full term: 1 Number of Living Children: 1 Ab spontaneous: 1 Date of last pap smear: 07/22/22 (negative) History of abnormal pap smear: Yes (2010 2009 2006 ASCUS, 2009 GONSALO 1) Date of Mammogram: 10/07/22 Physical Exam Vital Signs: BMI result Body Mass Index 28.2 Const General: healthy appearing, comfortable, no acute distress, well developed and alert Nutritional Appearance: average body habitus Orientation/consciousness: patient oriented x3 Limitations: no limitations HEENT Head: Yes normocephalic Neck Neck: Yes normal visual inspection Chest Chest palpation & inspection: normal inspection of the chest Breast/axilla inspection: normal inspection of the breasts and normal inspection of the axillae Breast/axilla palpation: normal palpation of the breasts and normal palpation of the axillae Resp Effort & Inspection: normal respiratory effort GI Inspection: Yes normal to inspection, No Abdominal wall edema and No distended Palpation (GI): Soft to palpation and nontender Other: Vagina pink moist normal appearing whitish discharge cervix multiparous mobile nontender uterus anteverted mobile nontender not enlarged adnexa non tender good tone with Kegel. General: Yes bladder normal to palpation External Female Exam: normal external appearance and normal appearance of the urethra Speculum Exam - Vagina: normal appearance of the vagina, normal palpation and normal vaginal discharge Speculum Exam - Cervix: normal appearance of the cervix, normal palpation and nontender Bimanual exam- vagina & uterus: normal bimanual exam, normal palpation, uterine size normal, bladder normal to palpation, consistency normal, normal palpation, uterine mobility normal, uterine shape normal, No Cervical tenderness present, non-tender and no cervical motion tenderness Bimanual Exam- Adnexa, other: normal adnexae, no masses, normal and No adnexal tenderness Neuro General: patient oriented x3 Assessment & Plan Assessment & Plan (1) Exhaustion: Code(s): R53.83 - Other fatigue (2) Cervical cancer screening: Comment: 07/22/2022 Pap is negative with negative HPV. Code(s): Z12.4 - Encounter for screening for malignant neoplasm of cervix (3) Hx of tubal ligation: Code(s): Z98.51 - Tubal ligation status (4) Well woman exam with routine gynecological exam: Code(s): Z01.419 - Encounter for gynecological examination (general) (routine) without abnormal findings (5) Breast calcification, left: Code(s): R92.1 - Mammographic calcification found on diagnostic imaging of breast Plan -----Discussed in this visit the following: healthy balanced diet, regular and consistent exercise, getting recommended health screens, doing the best she can for her particular health concerns, kegel exercises, pap smear screening and followup recommendations, mammography screening and SBE, normal changes in cycles in her life stage--- . Reviewed how periods do not necessarily have to come on the same day of the month and that twice a month if it is at the beginning and the end can be within normal limits recommend keeping track. She cites an occasional random pain on 1 side or another but again in order to figure out what it might be she would need to keep track of when it is occurring she denies any constipation or diarrhea. She has no worries about STDs but accepts testing. Discussed the role of stress and sleep disturbances. She will be getting her mammogram in September . Discussed taryn menopausal changes. Orders: Orders Bacterial Vaginosis Panel Today Z20.2 - Contact with and (suspected) exposure to infections with a predominantly sexual mode of transmission CT NG by PCR Today Z20.2 - Contact with and (suspected) exposure to infections with a predominantly sexual mode of transmission Coding Level of Care Code Est Pt Prev Care 40-64y(87228) Diagnoses Exhaustion R53.83 Cervical cancer screening Z12.4 Hx of tubal ligation Z98.51 Well woman exam with routine gynecological exam Z01.419 Breast calcification, left R92.1
== END 2023-07-25 11:18 | disposition home or self-care (01) ==
PROVIDERS: Visit Provider Advanced Practice Midwife
DX: Z01.419 Encounter for gynecological examination (general) (routine) without abnormal findings (principal); R53.83 Other fatigue; R92.1 Mammographic calcification found on diagnostic imaging of breast; Z98.51 Tubal ligation status
CPT/HCPCS: 99396

== ENCOUNTER 2023-07-25 10:21 | Outpatient (REF) | payer MEDICAID, SELFPAY ==
[2023-07-25 17:53] LABS: CT PCR NOT DETECTED (Not Detect.); NG PCR NOT DETECTED (Not Detect.)
[2023-07-27 14:31] LABS: BV Int Neg Control Negative (Negative); BV Int Pos Control Positive (Positive)
== END 2023-07-25 10:22 | disposition home or self-care (01) ==
LOC: HO.LNP 10:21
PROVIDERS: Visit Provider Advanced Practice Midwife
DX: Z20.2 Contact with and (suspected) exposure to infections with a predominantly sexual mode of transmission (principal); R53.83 Other fatigue; Z98.51 Tubal ligation status; R92.1 Mammographic calcification found on diagnostic imaging of breast
CPT/HCPCS: 0353U; 87480; 87510; 87660; 99396

== ENCOUNTER 2023-08-08 09:45 | Outpatient (REF) | payer MEDICAID, SELFPAY ==
[2023-08-08 11:16] LABS: MANUAL DIFF FLAG NO
[2023-08-08 11:28] LABS: Basophils Percent Auto 0.6 % (0-2); Eosinophils Percent Auto 0.3 % (0-4); Hematocrit 35.6 % (37.0-47.0); Hemoglobin 11.9 g/dl (12.0-16.0); Imm Gran Abs Auto 0.02 X10*3/uL (0.00-0.03); Imm Gran Pct Auto 0.3 % (0.0-0.4); Lymphocytes Absolute Auto 2.6 X10*3/uL (1.2-4.9); Lymphocytes Percent Auto 37.4 % (20-40); Mean Corpuscular HGB Conc 33.4 g/dl (31.0-35.0); Mean Corpuscular Hemoglobin 31.5 pg (27.0-33.0); Mean Corpuscular Volume 94.2 fL (80.0-98.0); Mean Platelet Volume 10.3 fL (9.4-12.3); Monocytes Absolute Auto 0.6 X10*3/uL (0.1-1.2); Monocytes Percent Auto 8.6 % (2-11); Neutrophils Absolute Auto 3.6 x10*3/uL (2.0-8.3); Neutrophils Percent Auto 52.8 % (45-73); Platelet Count 263 X10*3/uL (160-400); Red Blood Count 3.78 X10*6/uL (4.20-5.50); Red Cell Distribution Width 12.8 % (11.0-16.0); White Blood Count 6.8 X10*3/uL (4.8-10.8)
[2023-08-08 11:37] LABS: Estimated Average Glucose 100 mg/dL; Hemoglobin A1c % 5.1 % (<6.0); Total Hemoglobin (HGBA1C) 3126.9727 umol/L
[2023-08-08 11:41] LABS: Cholesterol 184 mg/dL (<200); HDL Cholesterol 62 mg/dL (>40); LDL Cholesterol Calculated 112 mg/dL (<100); Triglycerides 54 mg/dL (<150)
[2023-08-08 11:54] LABS: Reflex LDLD? No
[2023-08-08 12:02] LABS: Syphilis Screen Nonreactive (Nonreactive)
[2023-08-08 12:10] LABS: Alanine Aminotransferase 23 U/L (0-31); Albumin Level 3.9 g/dL (3.5-5.0); Alkaline Phosphatase 55 U/L (39-117); Anion Gap 13 (12-20); Aspartate Amino Transferase 20 U/L (5-31); Bilirubin Total 0.4 mg/dL (0.0-1.0); Blood Urea Nitrogen 11 mg/dL (9-16); Calcium 8.9 mg/dL (8.4-10.2); Carbon Dioxide 24 mmol/L (22-29); Chloride 108 mmol/L (96-108); Estimated Glomerular Filt Rate > 60; Folate 10.2 ng/mL (> or = 4.0); Glucose Random 90 mg/dL (60-115); Potassium 4.1 mmol/L (3.3-5.1); Sodium 141 mmol/L (135-145); Total Protein 6.9 g/dL (6.5-8.0); Vitamin B12 1228 pg/mL (200-900)
[2023-08-08 12:11] LABS: HBS Num1 > 1000.00 mIU/mL (0-7.99); HBc Num1 0.06 S/CO (0.00-0.79); HBsAGNum1 0.32 S/CO (0.00-0.99); HIV AB/AG Nonreactive (Nonreactive); HIV Num 1 0.04 S/CO (0.00-0.99); Hepatitis B Core Antibody Nonreactive (Nonreactive); Hepatitis B Surface Antigen Negative (Negative); ~Hepatitis B Surface Antibody REACTIVE (Nonreactive); ~Hepatitis C Antibody Nonreactive (Nonreactive)
[2023-08-08 12:13] LABS: TSH reflex Free T4 0.75 uIU/mL (0.32-4.0)
[2023-08-08 13:26] LABS: CT PCR NOT DETECTED (Not Detect.); NG PCR NOT DETECTED (Not Detect.)
== END 2023-08-08 09:46 | disposition home or self-care (01) ==
LOC: HO.HHCL 09:45
PROVIDERS: Visit Provider Family Medicine
DX: Z11.3 Encounter for screening for infections with a predominantly sexual mode of transmission (principal); Z11.4 Encounter for screening for human immunodeficiency virus [HIV]; R20.0 Anesthesia of skin; R20.2 Paresthesia of skin
CPT/HCPCS: 0353U; 36415; 80053; 80061; 82607; 82746; 83036; 84443; 85025; 86704; 86706; 86780; 86803; 87340; 87389

== ENCOUNTER 2023-08-20 10:10 | Outpatient (REF) | payer MEDICAID, SELFPAY ==
[2023-08-20 12:10] LABS: Iron 121 mcg/dL (30-160); Percent Iron Saturation 38 % (15-50); Total Iron Binding Capacity 321 mcg/dL (228-428); Unsaturated Iron Binding 200 ug/dL
[2023-08-20 12:32] LABS: Ferritin 29 ng/mL (10-250)
== END 2023-08-20 10:11 | disposition home or self-care (01) ==
LOC: HO.HHCL 10:10
PROVIDERS: Visit Provider Family Medicine
DX: D64.9 Anemia, unspecified (principal)
CPT/HCPCS: 36415; 82728; 83540

== ENCOUNTER 2023-10-24 14:02 | Outpatient (REF) | payer MEDICAID, SELFPAY ==
--- NOTE | ~2023-10-24 | MM_ITS ---
EXAMINATION: MM SCREENING DIGITAL BREAST TOMOSYNTHESIS, BILATERAL CLINICAL INFORMATION: Screening. Asymptomatic. The patient is status post left stereotactic biopsy of calcifications. The this showed benign tissue including multiple cysts, small papillomas without atypia. COMPARISON: Mammography: This study is compared with prior exams dating back to 2019. TECHNIQUE: Digital breast tomosynthesis is performed in both the craniocaudal and mediolateral oblique views along with computer-aided detection (CAD). Synthesized 2D images are generated from the tomosynthesis. FINDINGS: There are scattered areas of fibroglandular density (ACR BI-RADS breast composition Category b). There are no significant masses, abnormal calcifications, or other abnormalities. There is a biopsy tissue marker in the upper-outer quadrant of the left breast. It lies in association with unchanged, benign calcifications. MM/MM tomosynthesis screening BI IMPRESSION: No mammographic evidence of malignancy. ASSESSMENT: BI-RADS BI-RADS 2 - Benign Findings RECOMMENDATION: Routine annual mammography screening. 1 year F/U This examination should not preclude the clinical evaluation of a suspicious palpable abnormality. This patient's information was entered into a reminder system with a target due date for their next mammogram.
== END 2023-10-24 14:03 | disposition home or self-care (01) ==
LOC: HO.MAMMO 14:02
PROVIDERS: PCP Family Medicine; Visit Provider Advanced Practice Midwife
DX: Z12.31 Encounter for screening mammogram for malignant neoplasm of breast (principal)
CPT/HCPCS: 77063; 77067

== ENCOUNTER → 2023-10-24 14:15 | Outpatient (BNV) | payer MEDICAID, SELFPAY | PROVIDERS: PCP Family Medicine; Visit Provider Radiology Diagnostic Radiology | DX: Z12.31 Encounter for screening mammogram for malignant neoplasm of breast (principal) | CPT/HCPCS: 77063; 77067 ==

== ENCOUNTER 2024-05-24 10:46 | Outpatient (REF) | payer MEDICAID, SELFPAY ==
[2024-05-24 11:50] LABS: MANUAL DIFF FLAG NO
[2024-05-24 12:02] LABS: Basophils Absolute Auto 0.1 X10*3/uL (0.0-0.2); Basophils Percent Auto 0.7 % (0-2); Eosinophils Percent Auto 0.5 % (0-4); Hematocrit 37.2 % (37.0-47.0); Hemoglobin 12.4 g/dl (12.0-16.0); Imm Gran Abs Auto 0.04 X10*3/uL (0.00-0.03); Imm Gran Pct Auto 0.5 % (0.0-0.4); Immature Retic Fraction 8.4 % (3.0-15.9); Lymphocytes Absolute Auto 2.8 X10*3/uL (1.2-4.9); Lymphocytes Percent Auto 37.7 % (20-40); Mean Corpuscular HGB Conc 33.3 g/dl (31.0-35.0); Mean Corpuscular Hemoglobin 31.8 pg (27.0-33.0); Mean Corpuscular Volume 95.4 fL (80.0-98.0); Mean Platelet Volume 10.7 fL (9.4-12.3); Monocytes Absolute Auto 0.6 X10*3/uL (0.1-1.2); Monocytes Percent Auto 7.7 % (2-11); Neutrophils Percent Auto 52.9 % (45-73); Platelet Count 189 X10*3/uL (160-400); Red Cell Distribution Width 12.4 % (11.0-16.0); Retic HGB Equivalent 35.7 pg (30.0-35.0); Reticulocyte Percent 1.7 % (0.5-1.8); Reticulocytes Absolute 0.066 X10*6/uL (0.026-0.095); White Blood Count 7.5 X10*3/uL (4.8-10.8)
[2024-05-24 12:39] LABS: Alanine Aminotransferase 25 U/L (0-31); Alkaline Phosphatase 56 U/L (39-117); Anion Gap 9 (12-20); Aspartate Amino Transferase 24 U/L (5-31); Bilirubin Total 0.5 mg/dL (0.0-1.0); Blood Urea Nitrogen 8 mg/dL (9-16); Calcium 9.3 mg/dL (8.4-10.2); Carbon Dioxide 26 mmol/L (22-29); Chloride 108 mmol/L (96-108); Estimated Glomerular Filt Rate > 60; Glucose Random 84 mg/dL (60-115); Iron 100 mcg/dL (30-160); Percent Iron Saturation 31 % (15-50); Potassium 3.9 mmol/L (3.3-5.1); Sodium 139 mmol/L (135-145); Total Iron Binding Capacity 318 mcg/dL (228-428); Total Protein 6.9 g/dL (6.5-8.0); Unsaturated Iron Binding 218 ug/dL
[2024-05-24 12:47] LABS: Ferritin 43 ng/mL (10-250); TSH reflex Free T4 1.09 uIU/mL (0.32-4.0)
[2024-05-24 13:00] LABS: Folate 15.3 ng/mL (> or = 4.0); Vitamin B12 1289 pg/mL (200-900)
== END 2024-05-24 10:47 | disposition home or self-care (01) ==
LOC: HO.HHCL 10:46
PROVIDERS: Visit Provider Family Medicine
DX: R53.83 Other fatigue (principal)
CPT/HCPCS: 36415; 80053; 82607; 82728; 82746; 83540; 84443; 85025; 85045

== ENCOUNTER 2024-09-14 14:58 | Outpatient (AMB) | payer OTHER, SELFPAY ==
--- NOTE | 2024-09-14 15:10 | MHC.OFFVIS ---
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 There is lots of call out especially on the weekend she and her four colleagues take care of 43 patient in a day sometimes she does a double shift but only if she does not have to work the next day. She was having trouble sleeping so she talked to Dr. Anderson about that, and she was given a medication for anxiety that is helping her sleep better. Otherwise she was waking up middle of the night not being able to get back to sleep till 4 in the morning when she has to get up again at 05:30. She was find her mind racing about all the things that she needed to take care of with her patients the next day [facility] Medical History Breast calcification, left Patient denies medical problems Surgical History Hx of tubal ligation Family History Maternal Grandmother Breast cancer Other Lung cancer Social History (Updated 07/25/23 @ 10:32 by SONNY Frederick) Alcohol intake: current Alcohol intake frequency: holidays/special occasions only Patient Tobacco Use Status: Former Tobacco user Substance Use Type: Marijuana Gender identity: Female Female Reproductive History Menstrual Age of Menarche: 14 Date of last menstrual period: 08/29/24 control method: permanent sterilization Total pregnancies: 1 Full term: 1 Date of last pap smear: 07/22/22 (negative,2020 WNL) Physical Exam Vital Signs: Last Vital Signs BP 120/70 09/14/24 15:11 BMI result Body Mass Index 29.1 Const General: healthy appearing, comfortable, no acute distress, well developed and alert Nutritional Appearance: average body habitus Orientation/consciousness: patient oriented x3 Limitations: no limitations HEENT Head: Yes normocephalic Neck Neck: Yes normal visual inspection Chest Other: Patient identifies a occasional sensation of something hurting her iron her left breast she says it is where she had a biopsy some years ago and every time they check her for a mammogram it is fine. she feels a slight thickness of tissue there. Possible density/vague thickness of tissue in that area, left breast behind nipple. no definitive mass palpable no mass in right breast either. Chest palpation & inspection: normal inspection of the chest Breast/axilla inspection: normal inspection of the breasts and normal inspection of the axillae Breast/axilla palpation: normal palpation of the breasts and normal palpation of the axillae Resp Effort & Inspection: normal respiratory effort GI Inspection: Yes normal to inspection, No Abdominal wall edema and No distended Palpation (GI): Soft to palpation and nontender General: Yes bladder normal to palpation External Female Exam: normal external appearance and normal appearance of the urethra Speculum Exam - Vagina: normal appearance of the vagina, normal palpation and normal vaginal discharge Speculum Exam - Cervix: normal appearance of the cervix, normal palpation and nontender Bimanual exam- vagina & uterus: normal bimanual exam, normal palpation, uterine size normal, bladder normal to palpation, consistency normal, normal palpation, uterine mobility normal, uterine shape normal, No Cervical tenderness present, non-tender and no cervical motion tenderness Bimanual Exam- Adnexa, other: normal adnexae, no masses, normal and No adnexal tenderness Neuro General: patient oriented x3 Results Reviewed Results Reviewed: Name: Dorie Kiser I Age/Sex: 42/F Attending: Vicky Weiner CNM : 1980 Submitted by: Vicky Weiner CNM Copies to: MR #: [id number] Status: DEP REF Collected: 07/22/22 Location: [facility] Received: 07/22/22 Interpretation Satisfactory for evaluation. Negative for intraepithelial lesion or malignancy. HPV mRNA E6/E7: NOT DETECTED This assay detects E6/E7 viral messenger RNA (mRNA) from 14 high-risk HPV types (16, 18, 31, 33, 35, 39, 45, 51, 52, 56, 58, 59, 66, 68) HPV testing performed by [employer], [place], [place]. See reference laboratory portion of the EMR for entire report. Clinical Information LMP: 07/19/22 Previous PAP test: 04/17/21, WNL Material Received ThinPrep-Cervical Electronically Signed By: Ruma Aponte 08/12/22 1554 The Pap Test is a screening procedure with the inherent possibility of both false negative and false positive results. Results should be interpreted in the context of historic and current clinical findings. Reliability of the Pap Test is enhanced by performing the test on a regular repetitive basis. Patient: Dorie Kiser I Age/Sex: 42/F MR#: [id number] Page 1 of 1 Patient: Dorie Kiser I MR#: [id number] : 1980 Acct:[id number] Age/Sex: 43 / F ADM Date: 10/24/23 Loc: [facility] Attending Dr: Vicky Weiner CNM Ordering Physician: Vicky Weiner CNM Results: 2Benign Findings Date of Service: 10/24/23 Follow Up: 1 Year From Original Mammogram Procedure(s): MM tomosynthesis screening BI Accession Number(s): [id number] cc: Vicky Weiner CNM; So Anderson MD~ EXAMINATION: MM SCREENING DIGITAL BREAST TOMOSYNTHESIS, BILATERAL CLINICAL INFORMATION: Screening. Asymptomatic. The patient is status post left stereotactic biopsy of calcifications. The this showed benign tissue including multiple cysts, small papillomas without atypia. COMPARISON: Mammography: This study is compared with prior exams dating back to 2020. TECHNIQUE: Digital breast tomosynthesis is performed in both the craniocaudal and mediolateral oblique views along with computer-aided detection (CAD). Synthesized 2D images are generated from the tomosynthesis. FINDINGS: There are scattered areas of fibroglandular density (ACR BI-RADS breast composition Category b). There are no significant masses, abnormal calcifications, or other abnormalities. There is a biopsy tissue marker in the upper-outer quadrant of the left breast. It lies in association with unchanged, benign calcifications. MM/MM tomosynthesis screening BI IMPRESSION: No mammographic evidence of malignancy. ASSESSMENT: BI-RADS BI-RADS 2 - Benign Findings RECOMMENDATION: Routine annual mammography screening. 1 year F/U This examination should not preclude the clinical evaluation of a suspicious palpable abnormality. This patient's information was entered into a reminder system with a target due date for their next mammogram. Dictated By: Nevaeh Menon MD Signed By: <Electronically signed by Nevaeh Menon MD in [place]> 11/09/23 1037 DD/ 1425 TD/T Assessment & Plan Assessment & Plan (1) Breast calcification, left: Comment: Patient has similar sensations to 2020 but would like to be evaluated has screening mammogram scheduled for next month no distinct mass palpable, diagnostic mammogram ordered. Code(s): R92.1 - Mammographic calcification found on diagnostic imaging of breast Category: Medical (2) Hx of tubal ligation: Code(s): Z98.51 - Tubal ligation status Category: Surgical (3) Well woman exam with routine gynecological exam: Code(s): Z01.419 - Encounter for gynecological examination (general) (routine) without abnormal findings Category: Medical (4) Cervical cancer screening: Comment: 07/22/2022 Pap is negative with negative HPV. Code(s): Z12.4 - Encounter for screening for malignant neoplasm of cervix Category: Medical Plan -----Discussed in this visit the following: healthy balanced diet, regular and consistent exercise, getting recommended health screens, doing the best she can for her particular health concerns, kegel exercises, pap smear screening and followup recommendations, mammography screening and SBE, normal changes in cycles in her life stage--- . She is scheduled for her screening mammogram in September but she is concerned enough for the the left side that she would not mind getting it evaluated more thoroughly so I am going to place a diagnostic mammogram request. She is not due for another Pap smear until 2026 testing for STIs done but she does not have any concern. She is finding the medication that her doctor gave her to be helpful in allowing her to get better sleep Diagnostic mammogram ordered RTC 1 year. Orders: Orders CT NG by PCR Today N89.8 - Other specified noninflammatory disorders of vagina, Z20.2 - Contact with and (suspected) exposure to infections with a predominantly sexual mode of transmission Bacterial Vaginosis Panel Today N89.8 - Other specified noninflammatory disorders of vagina MM tomosynthesis diagnostic BI Today R92.1 - Mammographic calcification found on diagnostic imaging of breast, Z01.419 - Encounter for gynecological examination (general) (routine) without abnormal findings, Z12.4 - Encounter for screening for malignant neoplasm of cervix, Z98.51 - Tubal ligation status Coding Level of Care Code Est Pt Prev Care 40-64y(06059) Diagnoses Breast calcification, left R92.1 Hx of tubal ligation Z98.51 Well woman exam with routine gynecological exam Z01.419 Cervical cancer screening Z12.4
[2024-09-14 15:11] VITALS: BP 120/70; BMI 29.1
--- OUTSIDE RECORDS SUMMARY | 2024-09-14 16:57 | XMS_ITS | Clinical Summary ---
Author Organization [employer] Address [address] [facility] 7t [place] [address] Care Team Providers Care Melt House Supervisor Name Role Phone So Anderson MD Primary Care Provider [phone] Allergies No known active allergies Medications * This document contains information received from the source organization and may not represent a complete record from that organization. Melatonin 3 MG capsule Take 1 capsule by mouth 2-3 hours before your desired bedtime 90 capsule 3 3 Active venlafaxine XR (Effexor XR) 37.5 MG 24 hr capsule Take 1 capsule by mouth daily for 1 week, then increase to 2 capsules by mouth daily. Do not crush or chew. 60 capsule 11 4 Active ferrous sulfate (FerrouSul) 325 (65 Fe) MG tablet Take 1 tablet (325 mg) by mouth with breakfast. 30 tablet 11 3 08/21/20 24 Active Problems Problem Noted Date Diagnosed Date History of smoking 05/31/2024 Assessment & Plan (05/31/2024 5:21 AM EDT): - less than 20 pack years - quit in 2020 - continue working on maintaining non-smoking status Rachael-menopause 05/31/2024 Assessment & Plan (05/31/2024 5:24 AM EDT): - patient is no longer smoking cigarettes - consider hormone therapy Moderate major depression, single episode 2023 Grief 08/04/2023 Assessment & Plan (08/10/2023 5:07 PM EST): - pt lost her brother 2 years ago due to opioid overdose Cannabis use without complication 08/04/2023 Family history of cancer 08/04/2023 History of breast lump removal 08/04/2023 Loss of libido 08/04/2023 Abnormal uterine bleeding (AUB) 08/04/2023 Assessment & Plan (05/31/2024 5:18 AM EDT): - following with [facility] - Last PAP on 07/22/22 NILM with negative high-risk HPV - ?Rachael-menopausal - Check lab Assessment & Plan (08/10/2023 5:04 PM EST): - following with [facility] - Last PAP on 07/22/22 NILM with negative high-risk HPV - ?Rachael-menopausal - Check lab - Transvaginal US History of miscarriage 08/04/2023 Family history of diabetes mellitus type II 07/25 Family history of Alzheimer's disease 08/04/2023 History of femur fracture 08/04/2023 Insomnia 12/06/2022 Assessment & Plan (08/10/2023 5:03 PM EST): - She had [place] = 12 and sleep study was ordered by previous PCP in November 2022 - continue improving sleep hygiene - stress reduction - take melatonin 3 hours prior to desired bedtime - discussed about judicious use of marijuana Assessment & Plan (12/06/2022 4:04 PM EDT): [place] = 12 I asked Dorie to call her during our appointment. She was able to call him and he kindly obliged helping us with her [place] questionnaire. I ordered her a polysomnography. I requested a home test in the notes. F/up 1 month. Anemia 12/06/2022 Assessment & Plan (05/31/2024 5:19 AM EDT): Check lab again Assessment & Plan (12/06/2022 4:07 PM EDT): Dorie's cbc showed very mild reduction of H&H and red blood cell count. But because of her fatigue and insomnia I felt that doing an iron panel was warranted. Component Ref Range & Units 4 wk ago 4 mo ago 2 yr ago White Blood Cell Count 3.8 - 10.8 Thousand/uL 5.9 7.8 Red Blood Cell Count 3.80 - 5.10 Million/uL 3.63??Low?? 3.86 Hemoglobin 11.7 - 15.5 g/dL 11.6??Low?? 12.7 R 12.5 Hematocrit 35.0 - 45.0 % 34.6??Low?? 36.7??Low?? R 37.1 MCV 80.0 - 100.0 fL 95.3 Anxiety 11/06/2022 Assessment & Plan (05/31/2024 5:22 AM EDT): - spoke with integrated behavioral health service - not interested in behavioral health service at this time Assessment & Plan (08/10/2023 5:08 PM EST): - refer to [facility] Assessment & Plan (12/06/2022 4:04 PM EDT): JOANNA = 9, I informed her of her options in regards to medication. She is not interested in medication at this time. I explained to Dorie that we no longer use [facility], our behavioral department is now in house. I called and gave them her information. They will call her to set up an appointment. F/up 1 month Assessment & Plan (11/06/2022 5:11 PM EDT): We discussed how anxiety could potentially be causing her symptoms. We will go forward with the N referral and follow up [facility] referral placed. Bilateral knee pain 11/06/2022 Assessment & Plan (05/24/2024 4:15 PM EDT): - right worse than left - history of right femur fracture - previously prescribed diclofenac gel - refill - continue thigh-muscle strengthening exercise Assessment & Plan (08/10/2023 5:06 PM EST): - right worse than left - history of right femur fracture - previously prescribed diclofenac gel - refill - continue thigh-muscle strengthening exercise Assessment & Plan (12/06/2022 4:08 PM EDT): She states the diclofenac gel is working well and she has no further concerns about her knee pain today. She knows that if things get worse to call up and make an appointment. Assessment & Plan (11/06/2022 5:14 PM EDT): Ordered diclofenac gel which she used to use for her right knee pain. We will discuss other options at her follow up. Abnormal mammogram 08/13/2021 Assessment & Plan (05/31/2024 5:22 AM EDT): - history of left breast microcalcification s/p biopsy in 2020 - papilloma - most recent mammo in October 2023 BI-RADS 2 Assessment & Plan (08/10/2023 5:09 PM EST): - history of left breast microcalcification s/p biopsy in 2020 - papilloma - most recent mammo in Sep 2022 BI-RADS 2 Pain in joint involving pelvic region and thigh 07/07/2013 Resolved Problems Problem Noted Date Diagnosed Date Resolved Date Routine health maintenance 11/06/2022 0 05/23/2024 Class 1 obesity due to exces s calories with body mass index (BMI) of 30.0 to 30.9 in adult 11/06/2022 08/10/2023 Assessment & Plan (11/06/2022 5:04 PM EDT): We discussed her diet of chicken, rice and beans. She knows that she needs to reduce carbohydrates and increase vegetable and fruit intake. Tobacco use 07/07/2013 05/31/2024 Immunizations Name Administration Dates Next Due Hep B, adult 05/17/2019, 9,11/11/2018,2006,06/30/2007 Influenza Quadrivalent Adjuvanted 05/21/2022 Influenza injectable quadriv alent IIV4 with preservative 06/25/2023 Influenza injectable quadriv alent preservative free 05/25/2021,09/04/2018,06/12/2017 Influenza, IIV3, injectable 06/30/2007 Influenza, Split (incl. maurilio fied surface antigen) 06/05/2012 Influenza, seasonal, injecta ble, preservative free 05/24/2024 TD (adult), 2 Lf tetanus tox oid, preservative free, adsorbed 06/30/2007,11/04/2005 Tdap 10/19/2013 Social History Tobacco Use Types Packs/Day Years Used Date Smoking Tobacco: Never Smokeless Tobacco: Never Tobacco Cessation:Counseling Given: Not Answered Comments:marijuana Alcohol Answer Date Recorded Frequency of Alcohol Consumption Not on file 05/24/2024 Average Number of Drinks Not on file 024 Frequency of Binge Drinking Not on file 04/27 Score 0 05/24/2024 Depression Answer Date Recorded Patient Health Questionnaire-9 Score 8 05/24/2024 Patient Health Questionnaire-9 Score 8 05/24/2024 Last PHQ-9: Questionnaire Data Not on file 0 05/24/2024 Housing Stability Answer Date Recorded What is your housing situation today? I have subha ridley 10/30/[address] you li ve. Do you have problems with any of the following? Pests such as bugs, ants, or mice 10/30/2023 Food Insecurity Answer Date Recorded Within the past 12 months, y ou worried that your food would run out before you got money to buy more: Never True 10/30/2023 Within the past 12 months,th e food you bought just didn't last and you didn't have enough money to get more: Never True 02/2024 Transportation Answer Date Recorded In the past 12 months, has l ack of transportation kept you from medical appts, meetings, work or from getting things needed for daily living? No 06/09/2023 Utilities Answer Date Recorded In the past 12 months, has t he electric, gas, oil or water company threatened to shut off services in your home? No 06/09/2023 Depression Answer Date Recorded Patient Health Questionnaire-2 Score 2 05/24/2024 Comments Unknown Sex and Gender Information Value Date Recorded Sex Assigned at Female 06/24/2022 10:18 AM EDT Legal Sex Female 10:18 AM EDT Gender Identity Female 06/24/2022 10:18 AM EDT Sexual Orientation Choose not to disclose 2021 10:18 AM EDT Last Filed Vital Signs Vital Sign Reading Time Taken Comments Blood Pressure 103/66 05/24/2024 10:18 AM EDT Pulse 63 05/24/2024 10:18 AM EDT Temperature 36.1 ??C (96.9 ??F) 05/24/2024 10:18 AM E DT Respiratory Rate 18 05/24/2024 10:18 AM EDT Oxygen Saturation 96% 12/06/2022 3:00 PM EDT Inhaled Oxygen Concentration - - Weight 73.2 kg (161 lb 6.4 oz) 05/24/2024 10:18 AM EDT Height 159.2 cm (5' 2.69 ) 08/04/2023 2:31 PM ES T Body Mass Index 28.88 08/04/2023 2:31 PM EST Plan of Treatment Health Maintenance Due Date Last Done Comments CT Colonography 1980 Colonoscopy 1979 Colorectal Cancer Screening 1980 FIT DNA/Cologuard 1979 FIT 1979 FOBT 1980 Sigmoidoscopy 1980 Hepatitis A Vaccines (1 of 2 - Risk 2-dose series) 1998 DTaP/Tdap/Td Vaccines (2 - Td or Tdap) 10/19/2023 10/19/2013, 06/30/2007, 11/04/2005 COVID-19 Vaccine ( season) 2024 10/05/2021, 02/27/2021, 01/30/2021 SDOH Screening 10/29/2024 10/30/2023 Alcohol/Substance Use Screening 05/24/2025 05/24/2024 Depression Screening 05/24/2025 05/24/2024, 05/24/20 Tobacco Screening 05/24/2025 05/24/2024 Pap Smear 07/22/2025 07/22/2022 Mammogram 10/23/2025 10/24/2023, 09/25, 07/20/2021, Additional history exists Cervical Cancer Screening 07/22/2027 HPV/Cotest 07/22/2027 07/22/2022, 07/22/2022 Zoster Vaccines (1 of 2) 2029 RSV Patients and Patients Aged 60 years or older (1 - 1-dose 75+ series) 2054 Hepatitis B Vaccines Completed 05/17/2019, 12/14/2018, 11/11/2018, Additional history exists HIV Screening Completed 08/08/2023, 10/23, 06/26/2020 Hepatitis C Screening Completed 08/08/2023 , 11/08/2022, 06/26/2020 Influenza Vaccine Completed 05/24/2024, , 05/21/2022, Additional history exists HIB Vaccines Aged Out No longer eligi ble based on patient's age to complete this topic HPV Vaccines Aged Out No longer eligi ble based on patient's age to complete this topic IPV Vaccines Aged Out No longer eligi ble based on patient's age to complete this topic Meningococcal Vaccine Aged Out No joelle hien eligible based on patient's age to complete this topic Pneumococcal Vaccine: Pediatrics (0 to 5 Years) and At-Risk Patients (6 to 64 Years) Aged Out No longer eligible based on patient's age to complete this topic RSV under 20 months Aged Out No longe r eligible based on patient's age to complete this topic Rotavirus Vaccines Aged Out No longer eligible based on patient's age to complete this topic Procedures Procedure Name Priority Date/Time Associated Diagnosis Comments BI MAMMOGRAM SCREENING TOMOSYNTHESIS BILATERAL Routine 10/24/2023 2:25 PM EST HEPATITIS C AB W/REFL TO HCV RNA, QN, PCR Routine 08/08/2023 9:48 AM EST Routine screening for STI (sexually transmitted infection) HIV 1/2 ANTIGEN/ANTIBODY, FOURTH GENERATION W/RFL Routine 08/08/2023 9:48 AM EST Routine screening for STI (sexually transmitted infection) HPV MRNA E6/E7 REFLEX TO HPV 16, 18/45 Routine 07/22/2022 10:19 AM EST PAP SMEAR Routine 07/22/2022 10:19 AM EST from Last 3 Months or Most Recently Relevant to Health Maintenance Results * BI Mammogram Screening Tomosynthesis Bilateral (10/24/2023 2:25 PM EST) Anatomical Region Laterality Modality Breast Bilateral Mammography 10/24/2023 2:25 PM EST Narrative 11/09/2023 10:42 AM EDT ? [facility] ? [address] [place] [address] ? Mammography Report ? Signed ? Patient: Rashel,Sofnia I ?MR#: [id number] ?? [id number] ? : 1980 ?Acct:[id number] ? Age/Sex: 43 / F ?ADM Date: 10/24/23 ? Loc: HO.MAMMO ? Attending Dr: Vicky Weiner CNM ? Ordering Physician: Vicky Weiner CNM ?Results: 2Benign ?? Findings ? Date of Service: 10/24/23 ?Follow Up: 1 Year From Orig ?? inal Mammogram ? Procedure(s): MM tomosynthesis screening BI ?? Accession Number(s): [id number] ? cc: [place],Vicky CNM; So Anderson MD ? EXAMINATION: ?? MM SCREENING DIGITAL BREAST TOMOSYNTHESIS, BILATERAL ? CLINICAL INFORMATION: ? Screening. Asymptomatic. ? The patient is status post left stereotactic biopsy of calcifications. ?? The this showed benign tissue including multiple cysts, small ?? papillomas without atypia. ? COMPARISON: ?? Mammography: This study is compared with prior exams dating back to ?? 2019. ? TECHNIQUE: ?? Digital breast tomosynthesis is performed in both the craniocaudal and ?? mediolateral oblique views along with computer-aided detection (CAD). ?? Synthesized 2D images are generated from the tomosynthesis. ? FINDINGS: ?? There are scattered areas of fibroglandular density (ACR BI-RADS breast ?? composition Category b). ? There are no significant masses, abnormal calcifications, or other ?? abnormalities. ?? There is a biopsy tissue marker in the upper-outer quadrant of the left ?? breast. It lies in association with unchanged, benign calcifications. ? MM/MM tomosynthesis screening BI ?? IMPRESSION: ?? No mammographic evidence of malignancy. ? ASSESSMENT: ? BI-RADS BI-RADS 2 - Benign Findings ? RECOMMENDATION: ?? Routine annual mammography screening. ? 1 year F/U ? This examination should not preclude the clinical evaluation of a ?? suspicious palpable abnormality. ? This patient's information was entered into a reminder system with a ?? target due date for their next mammogram. ? Dictated By: ?Nevaeh Menon MD ? Signed By: ?<Electronically signed by Nevaeh Menon MD in OV> ? 11/09/23 1037 ? DD/ 1425 ? TD/TT: ? [employer] Consultant: ? Procedure Note Warner, Image - 11/09/2023 [facility] [address] [place] [address] [place] [address] Mammography Report Signed Patient: Dorie Kiser IMR#: [id number] : 1980Acct:[id number] Age/Sex: 43 / FADM Date: 10/24/23 Loc: [facility] Attending Dr: Vicky Weiner CNM Ordering Physician: Vicky Weineresults: 2Benign Findings Date of Service: 10/24/23Follow Up: 1 Year From Orig inal Mammogram Procedure(s): MM tomosynthesis screening BI Accession Number(s): [id number] cc: Vicky Weiner CNM; So Anderson MD EXAMINATION: MM SCREENING DIGITAL BREAST TOMOSYNTHESIS, BILATERAL CLINICAL INFORMATION: Screening. Asymptomatic. The patient is status post left stereotactic biopsy of calcifications. The this showed benign tissue including multiple cysts, small papillomas without atypia. COMPARISON: Mammography: This study is compared with prior exams dating back to 2019. TECHNIQUE: Digital breast tomosynthesis is performed in both the craniocaudal and mediolateral oblique views along with computer-aided detection (CAD). Synthesized 2D images are generated from the tomosynthesis. FINDINGS: There are scattered areas of fibroglandular density (ACR BI-RADS breast composition Category b). There are no significant masses, abnormal calcifications, or other abnormalities. There is a biopsy tissue marker in the upper-outer quadrant of the left breast. It lies in association with unchanged, benign calcifications. MM/MM tomosynthesis screening BI IMPRESSION: No mammographic evidence of malignancy. ASSESSMENT: BI-RADS BI-RADS 2 - Benign Findings RECOMMENDATION: Routine annual mammography screening. 1 year F/U This examination should not preclude the clinical evaluation of a suspicious palpable abnormality. This patient's information was entered into a reminder system with a target due date for their next mammogram. Dictated By: Nevaeh Menon MD Signed By: <Electronically signed by Nevaeh Menon MD in OV> 11/09/23 1037 DD/ 1425 TD/TT: [employer] Consultant: [facility] External Provider IMG BI PROCEDURES Edited Result - Final * Hepatitis C Antibody with Reflex to HCV, RNA, Quantitative, Real-Time PCR (08/08/2023 9:48 AM EST) Hepatitis C Antibody Nonreactive Nonreactive [facility] Comment:Antibodies to HCV no t detected; does not exclude early acuteHCV infection. Blood Venous blood specimen / Unknown 08/08/2023 9:48 AM EST 08/08/2023 11:11 AM EST So Anderson MD LAB BLOOD ORDERABLES Final Resul t Performing Organization Address City/State/[facility] Co de Phone Number [facility] [address] [place] [address] [phone] * HIV-1/2 Antigen and Antibodies, Fourth Generation, with Reflexes (08/08/2023 9:48 AM EST) HIV AB/AG Nonreactive Nonreactive [facility] Comment:HIV-1 p24 Ag and/or HIV-1/HIV-2 Ab not detected.A test result that is nonreactive does not exclude thepossibility of exposure to or infection with HIV-1 and/orHIV-2. Nonreactive results in this assay for individualswith prior exposure to HIV-1 and/or HIV-2 may be due toantigen and antibody levels that are below the limit ofdetection of this assay.The [employer] HIV Ag/Ab Combo assay result andsupplemental assay results should be interpreted inconjunction with the patient's clinical presentation,history and other laboratory results. If the results areinconsistent with clinical evidence, additional testing issuggested to confirm the result. Blood Venous blood specimen / Unknown 08/08/2023 9:48 AM EST 08/08/2023 11:11 AM EST us So Anderson MD LAB BLOOD ORDERABLES Final Resul t Performing Organization Address [facility] Co de Phone Number [facility] [address] [place] [address] [phone] * Pap Smear (07/22/2022 10:19 AM EST) 07/22/2022 10:1 9 AM EST 07/22/2022 12:00 PM EST Narrative [facility] - 08/12/2022 3:54 PM EST ----- ------- Name: Dorie Kiser Suzanne ?Age/Sex: 42/F ? : 1980 Unit#: [id number] ?? Attend Dr: Vicky Weiner CNM ?Re07/22/22 ?Status: DEP REF ? Location: HO.LNP ?Disch: ? ----- ------- SPEC : [id number] ?RECD: 07/22/22-1200 ? STATUS: ??SOUT ? REQ NUM: [id number] ? LEMUEL: 07/22/22-1019 ? SUBM DR: Vicky Weiner CNM ? ENTERED: ??07/23/220945 ?SP TYPE: Pap Smr ?OTHR : ? ORDERED: ??Pap Smear ? Interpretation ?? Satisfactory for evaluation. ?? Negative for intraepithelial lesion or malignancy. ? HPV mRNA E6/E7: ?NOT DETECTED ? This assay detects E6/E7 viral messenger RNA (mRNA) from 14 high-risk HPV types (16, 18, ?? 31, 33, 35, 39, 45, 51, 52, 56, 58, 59, 66, 68) ? HPV testing performed by [facility], [place], [place]. ??See reference laboratory ?? portion of the EMR for entire report. ?Clinical Information LMP: 07/19/22 Previous PAP test: 04/17/21, WNL ? Material Received ?? ThinPrep-Cervical ----- ------- Signed (signature on file) Ruma Vick Fay 08/12/22 1554 ? ----- ------- ? END OF REPORT ? [facility] External Provider LAB CYT OLOGY ORDERABLES Final Result [facility] [address] [place], [place] [phone] from Last 3 Months or Most Recently Relevant to Health Maintenance Insurance [employer] [facility] Care Teams Melt House Supervisor Relationship Specialty Start Date End Date So Anderson MD [address] [place] [address] PCP - General Family Medicine 05/09/23
--- OUTSIDE RECORDS SUMMARY | 2024-09-14 16:57 | XMS_ITS | Encounter Summary ---
Author Organization [employer] Address [address] [place] [address] Care Team Providers Care System Configuration Specialist Name Role Phone So Anderson MD Primary Care Provider [phone] Encounter Details Date Type Department Care Team ([facility] st Contact Info) Description 06/04/2024 Orders Only [facility] [address] [place], [place] [phone] So Anderson MD [address] [place], [place] [phone] Social History Tobacco Use Types Packs/Day Years Used Date Smoking Tobacco: Never Smokeless Tobacco: Never Comments:marijuana Alcohol Answer Date Recorded Frequency of [...] not to disclose 2021 10:18 AM EDT documented as of this encounter Plan of Treatment Not on file documented as of this encounter Visit Diagnoses Not on filedocumented in this encounter Additional Health Concerns Assessment Noted Time PHQ-9 Depression Total Score: 8 05/24/20 24 10:45 AM EDT documented as of this encounter Care Teams System Configuration Specialist Relationship Specialty Start Date End Date So Anderson MD [address] [place] [address] PCP - General Family Medicine 05/09/23 documented as of this encounter
--- OUTSIDE RECORDS SUMMARY | 2024-09-14 16:57 | XMS_ITS | Encounter Summary ---
Author Organization [employer] Address [address] [place] [address] Care Team Providers Care Bench Scientist Name Role Phone So Anderson MD Primary Care Provider [phone] Encounter Details Date Type Department Care Team ([facility] st Contact Info) Description 08/22/2023 Orders Only [facility] [address] [place], [place] [phone] So Anderson MD [address] [place], [place] [phone] Anemia, unspecified type (Primary Dx) Social History Tobacco Use Types Packs/Day Years Used Date Smoking Tobacco: Former Cigarettes Smokeless Tobacco: Never Comments:marijuana Depression Answer Date Recorded Patient Health Questionnaire-9 Score 8 08/04/2023 Patient Health Questionnaire-9 Score 8 08/04/2023 Last PHQ-9: Questionnaire Data Not on file 1 10/05/2022 Housing Stability Answer Date Recorded What is your housing situation today? I have subha [place] 06/09/[address] you li ve. Do you have problems with any of the following? None of the above 06/09/2023 Food Insecurity Answer Date Recorded Within the past 12 months, y ou worried that your food would run out before you got money to buy more: Sometimes True 2022 Within the past 12 months,th e food you bought just didn't last and you didn't have enough money to get more: Never True 06/09/2023 Transportation Answer Date Recorded In the past [...] Date Recorded Patient Health Questionnaire-2 Score 2 08/04/2023 Comments Unknown Sex and Gender Information Value Date Recorded Sex Assigned at Female 06/24/2022 10:18 AM EDT Legal Sex Female 10:18 AM EDT Gender Identity Female 06/24/2022 10:18 AM EDT Sexual Orientation Choose not to disclose 2021 10:18 AM EDT documented as of this encounter Plan of Treatment Not on file documented as of this encounter Visit Diagnoses Diagnosis Anemia, unspecified type- Primary documented in this encounter Additional Health Concerns Assessment Noted Time PHQ-9 Depression Total Score: 8 08/04/20 23 2:33 PM EST documented as of this encounter Care Teams Bench Scientist Relationship Specialty Start Date End Date So Anderson MD [address] [place] [phone] PCP - General Family Medicine 05/09/23 documented as of this encounter
--- OUTSIDE RECORDS SUMMARY | 2024-09-14 16:57 | XMS_ITS | Encounter Summary ---
Author Organization [facility] Address [address] [facility] [address] [place] [address] Care Team Providers Care Perfume Compounder Name Role Phone Oscar Ngo Primary Care Provider Unavail able So Anderson MD Primary Care Provider [phone] Encounter Details Date Type Department Care Team (Late st Contact Info) Description 03/05/2023 Orders Only [facility] MEDICINE [address] [place] [address] Provider, MD Kevin Social History Tobacco Use Types Packs/Day Years Used Date Smoking Tobacco: Former Cigarettes Smokeless Tobacco: Never Comments:marijuana Depression Answer Date Recorded Patient Health Questionnaire-9 Score 12 11/06/2022 Depression Answer Date Recorded Patient Health Questionnaire-2 Score 3 11/06/2022 Comments Unknown Sex and Gender Information Value Date Recorded Sex Assigned at Female 06/24/2022 10:18 AM EDT Legal Sex Female 10:18 AM EDT Gender Identity Female 06/24/2022 10:18 AM EDT Sexual Orientation Choose not to disclose 2021 10:18 AM EDT documented as of this encounter Plan of Treatment Not on file documented as of this encounter Procedures Procedure Name Priority Date/Time Associated Diagnosis Comments HM MAMMOGRAPHY Routine 10/07/2022 documented in this encounter Results * Hm Mammography (10/07/2022) Anatomical Region Laterality Modality Other us Historical Provider HEALTH MAINTENANCE Final Result documented in this encounter Visit Diagnoses Not on filedocumented in this encounter Additional Health Concerns Assessment Noted Time PHQ-9 Depression Total Score: 12 023 3:04 PM EDT documented as of this encounter Care Teams Perfume Compounder Relationship Specialty Start Date End Date Oscar Ngo AGNP PCP - General Family Medicine 10/10/22 05/08/23 So Anderson MD [address] [place] [address] PCP - General Family Medicine 05/09/23 documented as of this encounter
--- OUTSIDE RECORDS SUMMARY | 2024-09-14 16:57 | XMS_ITS | Encounter Summary ---
Author Organization [employer] Address [address] [address] [facility] [address] [place] [address] Care Team Providers Care Real Estate Marketing Coordinator Name Role Phone So Anderson MD Primary Care Provider [phone] Encounter Details Date Type Department Care Team ([facility] st Contact Info) Description 08/11/2023 Orders Only [facility] MEDICINE [address] [place], [place] [phone] So Anderson MD [address] [place], [place] [phone] Anemia, unspecified type (Primary Dx) Social History [...] Procedure Name Priority Date/Time Associated Diagnosis Comments IRON AND TOTAL IRON BINDING CAPACITY Routine 08/20/2023 10:13 AM EST Anemia, unspecified type FERRITIN Routine 08/20/2023 10:13 AM EST Anemia, unspecified type documented in this encounter Results * Iron And Total Iron Binding Capacity (08/20/2023 10:13 AM EST) Iron 121 30 - 160 mcg/dL [facility] Total Iron Binding Capacity 321 228 - 428 mcg/dL [facility] Percent Iron Saturation 38 15 - 50 % [facility] Unsaturated Iron Binding 200 ug/dL [facility] Blood Venous blood specimen / Unknown 08/20/2023 10:13 AM EST 08/20/2023 11:36 AM EST us So Anderson MD LAB BLOOD ORDERABLES Final Resul t [facility] [address] [place], [place] [phone] * Ferritin (08/20/2023 10:13 AM EST) Ferritin 29 10 - 250 ng/mL [facility] Blood Venous blood specimen / Unknown 08/20/2023 10:13 AM EST 08/20/2023 11:36 AM EST So Anderson MD LAB BLOOD ORDERABLES Final Resul t [facility] [address] [place] [address] [phone] documented in this encounter Visit Diagnoses Diagnosis Anemia, unspecified type- Primary documented in this encounter Additional Health Concerns Assessment Noted Time PHQ-9 Depression Total Score: 8 08/04/20 23 2:33 PM EST documented as of this encounter Care Teams Real Estate Marketing Coordinator Relationship Specialty Start Date End Date So Anderson MD [address] [place] [address] PCP - General Family Medicine 05/09/23 documented as of this encounter
== END 2024-09-14 15:51 | disposition home or self-care (01) ==
PROVIDERS: PCP Family Medicine; Visit Provider Advanced Practice Midwife
DX: Z01.419 Encounter for gynecological examination (general) (routine) without abnormal findings (principal); R92.1 Mammographic calcification found on diagnostic imaging of breast; Z98.51 Tubal ligation status
CPT/HCPCS: 99396; 99459

== ENCOUNTER 2024-09-14 14:58 | Outpatient (REF) | payer OTHER, SELFPAY ==
[2024-09-15 03:25] LABS: CT PCR NOT DETECTED (Not Detect.); NG PCR NOT DETECTED (Not Detect.)
[2024-09-15 13:45] LABS: Bacterial Vaginosis PCR POSITIVE (Negative); Candida Group PCR NOT DETECTED (Not Detect); Candida glab krusei PCR NOT DETECTED (Not Detect); Trichomonas vaginalis PCR NOT DETECTED (Not Detect)
== END 2024-09-14 14:59 | disposition home or self-care (01) ==
LOC: HO.LAB 14:58
PROVIDERS: PCP Family Medicine; Visit Provider Advanced Practice Midwife
DX: Z01.419 Encounter for gynecological examination (general) (routine) without abnormal findings (principal); N89.8 Other specified noninflammatory disorders of vagina; Z20.2 Contact with and (suspected) exposure to infections with a predominantly sexual mode of transmission; R92.1 Mammographic calcification found on diagnostic imaging of breast; Z98.51 Tubal ligation status
CPT/HCPCS: 81515; 87491; 87591; 99396; 99459

== ENCOUNTER 2024-11-12 08:24 | Outpatient (REF) | payer MEDICAID, SELFPAY ==
--- NOTE | ~2024-11-12 | US_ITS ---
EXAMINATION: MM DIAGNOSTIC DIGITAL BREAST TOMOSYNTHESIS, BILATERAL Limited left breast ultrasound. CLINICAL INFORMATION: Left breast pain. Previous biopsy in the upper outer left breast of multiple papillomas. COMPARISON: Mammography: Comparison is made with relevant prior exams. TECHNIQUE: Digital breast mammography with tomosynthesis is performed in both the craniocaudal and mediolateral oblique views along with computer-aided detection (CAD). FINDINGS: The breasts are heterogeneously dense, which may obscure small masses (ACR BI-RADS breast composition Category c). Left: Marker clip in the upper outer breast from previous biopsy of multiple papillomas. No suspicious masses calcifications or other abnormal findings. Targeted color Doppler ultrasound scanning in the area the patient's pain from 1-5 o'clock demonstrates normal fibronodular breast tissue. There is no sonographic abnormality. Right: There are no significant masses, abnormal calcifications, or other abnormalities. Results are provided to the patient at time of visit by the technologist. US/US breast LT limited mamm only IMPRESSION: Right: Negative. Left: No mammographic or sonographic abnormality to account for the patient's left breast pain. Recommend clinical evaluation and follow-up. Biopsy clip in the upper outer left breast from multiple papillomas. Papillomas can carry some risk therefore recommend clinical evaluation and follow-up with patient's breast surgeon. ASSESSMENT: BI-RADS BI-RADS 2 - Benign Findings RECOMMENDATION: 1 year F/U This patient's information was entered into a reminder system with a target due date for their next mammogram. Electronically signed by: Aracelis Benton DO 11/12/2024 10:19 AM EDLucie
== END 2024-11-12 08:25 | disposition home or self-care (01) ==
LOC: HO.MAMMO 08:24
PROVIDERS: PCP Family Medicine; Visit Provider Advanced Practice Midwife
DX: R92.1 Mammographic calcification found on diagnostic imaging of breast (principal)
CPT/HCPCS: 76642; 77062; 77066

== ENCOUNTER → 2024-11-12 08:30 | Outpatient (BNV) | payer MEDICAID, SELFPAY | PROVIDERS: PCP Family Medicine; Visit Provider Internal Medicine | DX: N64.4 Mastodynia (principal) | CPT/HCPCS: 76642; 77062; 77066 ==

== ENCOUNTER 2024-12-10 09:55 | Outpatient (AMB) | payer MEDICAID, SELFPAY ==
--- NOTE | 2024-12-10 09:57 | A.OFFVIS_ITS ---
Vital Signs 12/10/24 10:06 Height 5 ft 2 in Weight 163 lb BMI 29.8 BP 114/66 Blood Pressure Location Lt brachial Position Sitting Pulse 70 Intake Visit Reasons: Mamm calcification found on diag imaging of breast Intake Note: Patient is seen in office for mammographic calcification found on diagnostic imaging of breast. Pt c/o: feels a lump for the past 2 yrs, at the time had a bx done and nothing was found, feels a pinch, denies discoloration, redness, discharge, denies prior breast surgeries or complications, maternal grandmother Dx breast CA at age of 70 mm/us:11/12/24 ref [facility] Required: No Accompanied by: Self / Same As Patient Allergies No Known Allergies [No Known Allergies*] Allergy (Verified 12/10/24 10:04) HPI Comments Details: 44-year-old female patient presenting with a left breast lump which is causing a pinching sensation intermittently. The pain does not necessarily occur every day and is not associated with her menstrual cycle. She denies any overlying skin changes or nipple discharge. She previously underwent a stereotactic guided biopsy in 2020 which revealed multiple papilloma but no evidence of atypia or malignancy. Her most recent mammogram and ultrasound dated 11/12/2024 revealed no mammographic or sonographic abnormality to account for the patient's left breast pain. Biopsy clip in the upper outer left breast with multiple papillomas. Routine follow-up in 1 year is recommended. Patient's family history is significant for her paternal grandmother having breast cancer approximately 8 years ago. Her menarche was the age of 14. She is 1 para 1 had her 1st child when she was 20. [facility] Medical History Breast calcification, left Patient denies medical problems Surgical History Hx of tubal ligation Family History Maternal Grandmother Breast cancer Other Lung cancer Social History Alcohol intake: current Alcohol intake frequency: holidays/special occasions only Patient Tobacco Use Status: Former Tobacco user Substance Use Type: Marijuana Gender identity: Female Female Reproductive History Menstrual Age of Menarche: 14 Date of last menstrual period: 11/19/24 Total pregnancies: 1 Number of Living Children: 1 Review of Systems Const All systems reviewed & are unremarkable except as noted in HPI and below Physical Exam Vital Signs: Last Vital Signs Pulse 70 12/10/24 10:06 BP 114/66 12/10/24 10:06 BMI result Body Mass Index 29.8 Const General: cooperative and no acute distress Nutritional Appearance: well nourished Orientation/consciousness: patient oriented x3 Limitations: no limitations HEENT Head: Yes normocephalic and Yes atraumatic Ears: hearing grossly normal bilaterally Chest Other: Left breast: No skin change, no nipple retraction, no nipple discharge, area of thickening noted in the upper outer quadrant at approximately the 2-3 o'clock location which was mildly tender to palpation, no enlarged lymph nodes. Right breast: No skin change, no nipple retraction, no nipple discharge, no palpable mass, no enlarged lymph nodes Resp Effort & Inspection: normal respiratory effort, no audible wheezes, no cough and no respiratory distress Cardio Jugular venous distension: no JVD GI Inspection: Yes normal to inspection Skin Other: Warm, dry, no rash Neuro General: patient oriented x3 Extrem General: Yes no clubbing, cyanosis or edema Assessment & Plan Assessment & Plan (1) Breast calcification, left: Comment: Patient has similar sensations to 2020 but would like to be evaluated has screening mammogram scheduled for next month no distinct mass palpable, diagnostic mammogram ordered. Code(s): R92.1 - Mammographic calcification found on diagnostic imaging of breast Category: Medical (2) Papilloma of left breast: Code(s): D24.2 - Benign neoplasm of left breast Category: Medical Plan 44-year-old female patient presenting with complaints of pinching pain in the left breast with a prior history of papilloma. On examination there is an area of thickening in the upper outer quadrant corresponding to the area and noted on mammogram as a previous biopsy site. I recommended a left breast lumpectomy with localizer and after discussion of the procedure, risks, and alternatives, she consents to the surgery. Coding Level of Care Code New Pt Level 4 (42545) Diagnoses Breast calcification, left R92.1 Papilloma of left breast D24.2
[2024-12-10 10:06] VITALS: BP 114/66; PULSE 70; BMI 29.8
--- OUTSIDE RECORDS SUMMARY | 2024-12-10 10:40 | XMS_ITS | Encounter Summary ---
Author Organization [employer] Address [address] [address] [place] [address] Care Team Providers Care Lead Applier Name Role Phone So Anderson MD Primary Care Provider [phone] Encounter Details Date Type Department Care Team ([facility] st Contact Info) Description 06/04/2024 Orders Only [facility] MEDICINE [address] [place], [place] [phone] So Anderson MD [address] [place], [place] [phone] Social History Tobacco Use Types Packs/Day Years Used Date Smoking Tobacco: Never Smokeless Tobacco: Never Comments:marijuana Depression Answer Date [...] documented as of this encounter Care Teams Lead Applier Relationship Specialty Start Date End Date So Anderson MD [address] [place] [phone] PCP - General Family Medicine 05/09/23 documented as of this encounter
--- OUTSIDE RECORDS SUMMARY | 2024-12-10 10:41 | XMS_ITS | Encounter Summary ---
Author Organization [employer] Address [address] [place] [address] Care Team Providers Care Spoon Maker Name Role Phone So Anderson MD Primary Care Provider [phone] Encounter Details Date Type Department Care Team ([facility] st Contact Info) Description 08/11/2023 Orders Only [facility] MEDICINE [address] [place], [place] [phone] So Anderson MD [address] [place], [place] [phone] Anemia, unspecified type (Primary Dx) Social History [...] EST) Iron 121 30 - 160 mcg/dL [facility] Total Iron Binding Capacity 321 228 - 428 mcg/dL [facility] Percent Iron Saturation 38 15 - 50 % [facility] Unsaturated Iron Binding 200 ug/dL [facility] Blood Venous blood specimen / Unknown 08/20/2023 10:13 AM EST 08/20/2023 11:36 AM EST us So Anderson MD LAB BLOOD ORDERABLES Final Resul t [facility] [address] [place], [place] [phone] * Ferritin (08/20/2023 10:13 AM EST) Ferritin 29 10 - 250 ng/mL [facility] Blood Venous blood specimen / Unknown 08/20/2023 10:13 AM EST 08/20/2023 11:36 AM EST So Anderson MD LAB BLOOD ORDERABLES Final Resul t [facility] [address] [place] [address] [phone] documented in this encounter Visit Diagnoses Diagnosis Anemia, unspecified type- Primary documented in this encounter Additional Health Concerns Assessment Noted Time PHQ-9 Depression Total Score: 8 08/04/20 23 2:33 PM EST documented as of this encounter Care Teams Spoon Maker Relationship Specialty Start Date End Date So Anderson MD [address] [place] [address] PCP - General Family Medicine 05/09/23 documented as of this encounter
--- OUTSIDE RECORDS SUMMARY | 2024-12-10 10:41 | XMS_ITS | Clinical Summary ---
Author Organization [employer] Address [address] [place] [address] Care Team Providers Care Hospitality Director Name Role Phone So Anderson MD Primary Care Provider [phone] Allergies No known active allergies Medications * This document contains information received from the source organization and may not represent a complete record from that organization. Melatonin 3 MG capsule Take 1 capsule by mouth 2-3 hours before your desired bedtime 90 capsule 3 08/04/2023 Active venlafaxine XR (Effexor XR) 37.5 MG 24 hr capsule Take 1 capsule by mouth daily for 1 week, then increase to 2 capsules by mouth daily. Do not crush or chew. 60 capsule 11 06/04/2024 Active Active Problems Problem Noted Date Diagnosed Date Overweight 11/08/2024 Assessment & Plan (11/08/2024 3:42 PM EDT): Dietary Recommendations: Fruits, vegetables, whole grains, protein foods, and fat-free or low-fat dairy products are healthy choices. Eat different types of protein foods in your diet. This can include seafood, lean meats, poultry, beans, peas, lentils, nuts, seeds, soy products, and eggs. Limit foods and beverages higher in added sugars, saturated fat, and sodium. Exercise Recommendations: At least 150 minutes of moderate-intensity physical activity per week, or an equivalent combination of moderate- and vigorous-intensity activity History of smoking 05/31/2024 Assessment & Plan (05/31/2024 5:21 AM EDT): - less than 20 pack years - quit in 2020 - continue working on maintaining non-smoking status Rachael-menopause 05/31/2024 Assessment & Plan (11/08/2024 3:38 PM EDT): - patient is no longer smoking cigarettes, and HRT is an option in the future - patient is currently taking Venlafaxine Assessment & Plan (05/31/2024 5:24 AM EDT): - patient is no longer smoking cigarettes - consider hormone therapy Moderate major depression, single episode 2023 Assessment & Plan (11/08/2024 3:39 PM EDT): - PHQ9 score 8 on 05/24/24 - patient reports improvement of her insomnia - patient now has a new granddaughter and seems to be enjoying okay - she is currently taking venlafaxine for perimenopausal symptom Grief 08/04/2023 Assessment & Plan (08/10/2023 5:07 PM EST): - pt lost her brother 2 years ago due to opioid overdose Cannabis use without complication 08/04/2023 Family history of cancer 08/04/2023 History of breast lump removal 08/04/2023 Loss of libido 08/04/2023 Abnormal uterine bleeding (AUB) 08/04/2023 Assessment & Plan (11/08/2024 3:36 PM EDT): - following with [facility] - Last Cotest on 07/22/22 NILM with negative high-risk HPV - Perimenopausal Assessment & Plan (05/31/2024 5:18 AM EDT): - following with [facility] - Last PAP on 07/22/22 NILM with negative high-risk HPV - ?Rachael-menopausal - Check lab Assessment & Plan (08/10/2023 5:04 PM EST): - following with [facility] - Last PAP on 07/22/22 NILM with negative high-risk HPV - ?Rachael-menopausal - Check lab - Transvaginal US History of miscarriage 08/04/2023 Family history of diabetes mellitus type II 07/25 Family history of Alzheimer's disease 08/04/2023 History of femur fracture 08/04/2023 Insomnia 12/06/2022 Assessment & Plan (11/08/2024 9:42 AM EDT): - She had [place] = 12 and sleep study was ordered by previous PCP in November 2022 - continue improving sleep hygiene - stress reduction - take melatonin 3 hours prior to desired bedtime - discussed about judicious use of marijuana Assessment & Plan (08/10/2023 5:03 PM EST): - She had [place] = 12 and sleep study was ordered by previous PCP in November 2022 - continue improving sleep hygiene - stress reduction - take melatonin 3 hours prior to desired bedtime - discussed about judicious use of marijuana Assessment & Plan (12/06/2022 4:04 PM EDT): Kings[place] = 12 I asked Dorie to call her during our appointment. She was able to call him and he kindly obliged helping us with her [place] questionnaire. I ordered her a polysomnography. I requested a home test in the notes. F/up 1 month. Anemia 12/06/2022 Assessment & Plan (11/08/2024 3:37 PM EDT): - most recent CBC in Apr 2024 was normal - monitor symptoms with periodic lab - currently asymptomatic Assessment & Plan (05/31/2024 5:19 AM EDT): [...] fL 95.3 Anxiety 11/06/2022 Assessment & Plan (11/08/2024 3:40 PM EDT): - spoke with integrated behavioral health service in the past - not interested in behavioral health service at this time Assessment & Plan (05/31/2024 5:22 AM EDT): - spoke with integrated behavioral health service - not interested in behavioral health service at this time Assessment & Plan (08/10/2023 5:08 PM EST): - refer to [facility] Assessment & Plan (12/06/2022 4:04 PM EDT): JOANNA = 9, I informed her of her options in regards to medication. She is not interested in medication at this time. I explained to Dorie that we no longer use [facility], our behavioral department is now in house. I called and gave them her information. They will call her to set up an appointment. F/up 1 month Assessment & Plan (11/06/2022 5:11 PM EDT): We discussed how anxiety could potentially be causing her symptoms. We will go forward with the [facility] referral and follow up N referral placed. Bilateral knee pain 11/06/2022 Assessment & Plan (11/08/2024 9:42 AM EDT): - right worse than left - history of right femur fracture - previously prescribed diclofenac gel - refill - continue thigh-muscle strengthening exercise Assessment & Plan (05/24/2024 4:15 PM EDT): [...] up. Abnormal mammogram 08/13/2021 Assessment & Plan (11/08/2024 3:40 PM EDT): - history of left breast microcalcification s/p biopsy in 2020 - papilloma - most recent mammo in October 2023 BI-RADS 2 - diagnostic mammo is scheduled on 11/12/24 Assessment & Plan (05/31/2024 5:22 AM EDT): [...] and fruit intake. Tobacco use 07/07/2013 05/31/2024 Encounters Date Type Department Care Team Description 11/12/2024 Orders Only [facility] External Provider, [facility] 11/08/2024 9:30 AM EDT Office Visit [facility] [address] [place] [phone] So Anderson MD Routine general medical examination at a health care facility (Primary Dx); Insomnia, unspecified type; Abnormal uterine bleeding (AUB); Anemia, unspecified type; Moderate major depression, single episode (CMS/HCC); Rachael-menopause; Anxiety; Encounter for immunization; Dietary counseling; Exercise counseling; Overweight; Colon cancer screening; Cannabis use without complication; Abnormal mammogram 11/08/2024 Travel 11/02/2024 Telephone [facility] [address] [place] [phone] So Anderson MD CHART PREP 09/17/2024 Telephone [facility] [address] [place] [phone] Radha Daniels MA october recall 09/14/2024 Orders Only GENERIC EXTERNAL DATA DEPARTMENT Provider, Generic External Data from Last 3 Months Immunizations Name Administration Dates Next Due Hep B, adult 05/17/2019, 9,11/11/2018,2006,06/30/2007 Influenza Quadrivalent Adjuvanted 05/21/2022 Influenza injectable quadriv alent IIV4 with preservative 06/25/2023 Influenza injectable quadriv alent preservative free 05/25/2021,09/04/2018,06/12/2017 Influenza, IIV3, injectable 06/30/2007 Influenza, Split (incl. maurilio fied surface antigen) 06/05/2012 Influenza, seasonal, injecta ble, preservative free 05/24/2024 TD (adult), 2 Lf tetanus tox oid, preservative free, adsorbed 06/30/2007,11/04/2005 Tdap 11/08/2024,10/19/2013 Family History Medical History Relation Name Comments Breast cancer Maternal Grandmother Relation Name Status Comments Maternal Grandmother Alive Social History Tobacco Use Types Packs/Day Years Used Date Smoking Tobacco: Never Smokeless Tobacco: Never Tobacco Cessation:Counseling Given: Not Answered Comments:marijuana Depression Answer Date Recorded Patient Health Questionnaire-9 Score 8 05/24/2024 Patient Health Questionnaire-9 Score 8 05/24/2024 Last PHQ-9: Questionnaire Data Not on file 0 05/24/2024 Housing Stability Answer Date Recorded What is your housing situation today? I have subha [place] 11/08/[address] you li ve. Do you have problems with any of the following? None of the above 11/08/2024 Food Insecurity Answer Date Recorded Within the past 12 months, y ou worried that your food would run out before you got money to buy more: Never True 11/08/2024 Within the past 12 months,th e food you bought just didn't last and you didn't have enough money to get more: Never True Transportation Answer Date Recorded In the past 12 months, has l ack of transportation kept you from medical appts, meetings, work or from getting things needed for daily living? No 11/08/2024 Utilities Answer Date Recorded In the past 12 months, has t he electric, gas, oil or water company threatened to shut off services in your home? No 11/08/2024 Depression Answer Date Recorded Patient Health Questionnaire-2 Score 2 05/24/2024 Internet Access Answer Date Recorded Internet Access Q1 Yes 11/08/2024 Internet Access Q2 Not on file 11/08/2024 Comments Unknown Sex and Gender Information Value Date Recorded Sex Assigned at Female 06/24/2022 10:18 AM EDT Legal Sex Female 10:18 AM EDT Gender Identity Female 06/24/2022 10:18 AM EDT Sexual Orientation Choose not to disclose 2021 10:18 AM EDT Last Filed Vital Signs Vital Sign Reading Time Taken Comments Blood Pressure 115/70 11/08/2024 9:43 AM EDT Pulse 76 11/08/2024 9:43 AM EDT Temperature 36.2 ??C (97.1 ??F) 11/08/2024 9:43 AM ED T Respiratory Rate 17 11/08/2024 9:43 AM EDT Oxygen Saturation 96% 12/06/2022 3:00 PM EDT Inhaled Oxygen Concentration - - Weight 74.3 kg (163 lb 12.8 oz) 11/08/2024 9:43 AM EDT Height 157.5 cm (5' 2 ) 11/08/2024 9:43 AM EDT Body Mass Index 29.96 11/08/2024 9:43 AM EDT Plan of Treatment Health Maintenance Due Date Last Done Comments CT Colonography 1979 Colonoscopy 1979 Colorectal Cancer Screening 1980 FIT DNA/Cologuard 1979 FIT 1979 FOBT 1980 Sigmoidoscopy 1980 Family Planning (PISQ) 1994 COVID-19 Vaccine ( season) 2024 10/05/2021, 02/27/2021, 01/30/2021 Alcohol/Substance Use Screening 05/24/2025 05/24/2024 Depression Screening 05/24/2025 05/24/2024, 05/24/20 Pap Smear 07/22/2025 07/22/2022 SDOH Screening 11/08/2025 11/08/2024 Tobacco Screening 11/08/2025 11/08/2024 Mammogram 11/12/2026 11/12/2024, 10/24, 10/24/2023, Additional history exists Cervical Cancer Screening 07/22/2027 HPV/Cotest 07/22/2027 07/22/2022, 07/22/2022 Zoster Vaccines (1 of 2) 2029 DTaP/Tdap/Td Vaccines (3 - Td or Tdap) 11/08/2034 11/08/2024, 10/19/2013, 06/30/2007, Additional history exists RSV Patients and Patients Aged 60 years [...] on patient's age to complete this topic Hepatitis A Vaccines Aged Out No long er eligible based on patient's age to complete this topic IPV Vaccines Aged Out No longer eligi ble based on patient's age to complete this topic Meningococcal Vaccine Aged Out No joelle hien eligible based on patient's age to complete this topic Pneumococcal Vaccine: Pediatrics (0 to 5 Years) and At-Risk Patients (6 to 49) Years) Aged Out No longer eligible based on patient's age to complete this topic RSV under 20 months Aged Out No longe r eligible based on patient's age to complete this topic Rotavirus Vaccines Aged Out No longer eligible based on patient's age to complete this topic Procedures Procedure Name Priority Date/Time Associated Diagnosis Comments BI US BREAST LIMITED LEFT Routine 11/12/2024 9:00 AM EDT BI MAMMOGRAM DIAGNOSTIC TOMOSYNTHESIS BILATERAL Routine 11/12/2024 8:30 AM EDT BACTERIAL VAGINOSIS PANEL Routine 09/14/2024 12:00 AM EST CHLAMYDIA/N. GONORRHOEAE RNA, TMA, UROGENITAL Routine 09/14/2024 12:00 AM EST HEPATITIS C AB W/REFL TO HCV [...] Relevant to Health Maintenance Results * BI US Breast Limited Left (11/12/2024 9:00 AM EDT) Anatomical Region Laterality Modality Breast Left Ultrasound 11/12/2024 9:00 AM EDT Narrative 11/12/2024 10:22 AM EDT ? [facility] ? [address] ?[place] [address] ? Ultrasound Report ? Signed ? Patient: Rashel,Sofnia I ?MR#: [id number] ?? [id number] ? : 1980 ?Acct:[id number] ? Age/Sex: 44 / F ?ADM Date: 11/12/24 ? Loc: HO.MAMMO ? Attending Dr: Vicky Weiner CNM ? Ordering Physician: Vicky Weiner CNM ?? Date of Service: 11/12/24 ?? Procedure(s): US breast LT limited mamm only ?? Accession Number(s): [id number] ? cc: Vicky Weiner CNM; So Anderson MD ? EXAMINATION: ?? MM DIAGNOSTIC DIGITAL BREAST TOMOSYNTHESIS, BILATERAL ?? Limited left breast ultrasound. ? CLINICAL INFORMATION: ? Left breast pain. ?? Previous biopsy in the upper outer left breast of multiple papillomas. ? COMPARISON: ?? Mammography: Comparison is made with relevant prior exams. ? TECHNIQUE: ?? Digital breast mammography with tomosynthesis is performed in both the ?? craniocaudal and mediolateral oblique views along with computer-aided ?? detection (CAD). ? FINDINGS: ?? The breasts are heterogeneously dense, which may obscure small masses ?? (ACR BI-RADS breast composition Category c). ?? Left: ?? Marker clip in the upper outer breast from previous biopsy of multiple ?? papillomas. ?? No suspicious masses calcifications or other abnormal findings. ? Targeted color Doppler ultrasound scanning in the area the patient's ?? pain from 1-5 o'clock demonstrates normal fibronodular breast tissue. ?? There is no sonographic abnormality. ? Right: ?? There are no significant masses, abnormal calcifications, or other ?? abnormalities. ? Results are provided to the patient at time of visit by the ?? technologist. ? US/US breast LT limited mamm only ?? IMPRESSION: ?? Right: Negative. ? Left: No mammographic or sonographic abnormality to account for the ?? patient's left breast pain. ?? Recommend clinical evaluation and follow-up. ?? Biopsy clip in the upper outer left breast from multiple papillomas. ?? Papillomas can carry some risk therefore recommend clinical evaluation ?? and follow-up with patient's breast surgeon. ? ASSESSMENT: ? BI-RADS BI-RADS 2 - Benign Findings ? RECOMMENDATION: ?? 1 year F/U ? This patient's information was entered into a reminder system with a ?? target due date for their next mammogram. ? Electronically signed by: ??Aracelis Benton DO ??11/12/2024 10:19 AM EDT ?? RP ? Dictated By: ?Aracelis Benton DO ? Signed By: ?<Electronically signed by Aracelis Benton, in OV> ? 11/12/24 1019 ? DD/ 0900 ? TD/TT: 11/12/24 0917 ? Sander Hand: ? Procedure Note [place], Image - 11/12/2024 [facility] [address] [place] [address] Ultrasound Report Signed Patient: Dorie Kiser [facility]#: [id number] : 1980Acct:[id number] Age/Sex: 44 / FADM Date: 11/12/24 Loc: [facility] Attending Dr: Vicky Weiner CNM Ordering Physician: Vicky Weiner CNM Date of Service: 11/12/24 Procedure(s): breast LT limited mamm only Accession Number(s): [id number] cc: Vicky Weiner CNM; So Anderson MD EXAMINATION: MM DIAGNOSTIC DIGITAL BREAST TOMOSYNTHESIS, BILATERAL Limited left breast ultrasound. CLINICAL INFORMATION: Left breast pain. Previous biopsy in the upper outer left breast of multiple papillomas. COMPARISON: Mammography: Comparison is made with relevant prior exams. TECHNIQUE: Digital breast mammography with tomosynthesis is performed in both the craniocaudal and mediolateral oblique views along with computer-aided detection (CAD). FINDINGS: The breasts are heterogeneously dense, which may obscure small masses (ACR BI-RADS breast composition Category c). Left: Marker clip in the upper outer breast from previous biopsy of multiple papillomas. No suspicious masses calcifications or other abnormal findings. Targeted color Doppler ultrasound scanning in the area the patient's pain from 1-5 o'clock demonstrates normal fibronodular breast tissue. There is no sonographic abnormality. Right: There are no significant masses, abnormal calcifications, or other abnormalities. Results are provided to the patient at time of visit by the technologist. US/US breast LT limited mamm only IMPRESSION: Right: Negative. Left: No mammographic or sonographic abnormality to account for the patient's left breast pain. Recommend clinical evaluation and follow-up. Biopsy clip in the upper outer left breast from multiple papillomas. Papillomas can carry some risk therefore recommend clinical evaluation and follow-up with patient's breast surgeon. ASSESSMENT: BI-RADS BI-RADS 2 - Benign Findings RECOMMENDATION: 1 year F/U This patient's information was entered into a reminder system with a target due date for their next mammogram. Electronically signed by: Aracelis Benton DO 11/12/2024 10:19 AM EDT Dictated By: Aracelis Benton DO Signed By: <Electronically signed by Aracelis Benton DO in OV> 11/12/24 1019 DD/ 0900 TD/TT: 11/12/24 0917 Sander Hand: [facility] External Provider IMG US PROCEDURES Final Result * BI Mammogram Diagnostic Tomosynthesis Bilateral (11/12/2024 8:30 AM EDT) Anatomical Region Laterality Modality Breast Bilateral Mammography 11/12/2024 8:30 AM EDT Narrative 11/12/2024 10:22 AM EDT ? [facility] ? [address] ?[place] [address] ?[phone] ? Mammography Report ? Signed ? Patient: Rashel,Sofnia I ?MR#: [id number] ?? [id number] ? : 1980 ?Acct:[id number] ? Age/Sex: 44 / F ?ADM Date: 03/21/25 ? Loc: HO.MAMMO ? Attending Dr: Vicky Weiner CNM ? Ordering Physician: Vicky Weiner CNM ?Results: 2Beni ?? gn Findings ? Date of Service: 11/12/24 ?Follow Up: 1 Year From Orig ?? inal Mammogram ? Procedure(s): MM tomosynthesis diagnostic BI ?? Accession Number(s): [id number] ? cc: Vicky Weiner CNM; So Anderson MD ? EXAMINATION: ?? MM DIAGNOSTIC DIGITAL BREAST TOMOSYNTHESIS, BILATERAL ?? Limited left breast ultrasound. ? CLINICAL INFORMATION: ? Left breast pain. ?? Previous biopsy in the upper outer left breast of multiple papillomas. ? COMPARISON: ?? Mammography: Comparison is made with relevant prior exams. ? TECHNIQUE: ?? Digital breast mammography with tomosynthesis is performed in both the ?? craniocaudal and mediolateral oblique views along with computer-aided ?? detection (CAD). ? FINDINGS: ?? The breasts are heterogeneously dense, which may obscure small masses ?? (ACR BI-RADS breast composition Category c). ?? Left: ?? Marker clip in the upper outer breast from previous biopsy of multiple ?? papillomas. ?? No suspicious masses calcifications or other abnormal findings. ? Targeted color Doppler ultrasound scanning in the area the patient's ?? pain from 1-5 o'clock demonstrates normal fibronodular breast tissue. ?? There is no sonographic abnormality. ? Right: ?? There are no significant masses, abnormal calcifications, or other ?? abnormalities. ? Results are provided to the patient at time of visit by the ?? technologist. ? MM/MM tomosynthesis diagnostic BI ?? IMPRESSION: ?? Right: Negative. ? Left: No mammographic or sonographic abnormality to account for the ?? patient's left breast pain. ?? Recommend clinical evaluation and follow-up. ?? Biopsy clip in the upper outer left breast from multiple papillomas. ?? Papillomas can carry some risk therefore recommend clinical evaluation ?? and follow-up with patient's breast surgeon. ? ASSESSMENT: ? BI-RADS BI-RADS 2 - Benign Findings ? RECOMMENDATION: ?? 1 year F/U ? This patient's information was entered into a reminder system with a ?? target due date for their next mammogram. ? Electronically signed by: ??Aracelis Benton DO ??11/12/2024 10:19 AM EDT ? Dictated By: ?Aracelis Benton DO ? Signed By: ?<Electronically signed by Aracelis Benton, DO in OV> ? 11/12/24 1019 ? DD/ 0830 ? TD/TT: 11/12/24 0849 ? Sander Hand: ? Procedure Note Fabien Hylton - 11/12/2024 [facility] [address] [place] [address] Mammography Report Signed Patient: Dorie Kiser [facility]#: [id number] : 1980Acct:[id number] Age/Sex: 44 / FADM Date: 11/12/24 Loc: [facility] Attending Dr: Vicky Weiner CNM Ordering Physician: Vicky Weineresults: 2Beni gn Findings Date of Service: 11/12/24Follow Up: 1 Year From Orig inal Mammogram Procedure(s): MM tomosynthesis diagnostic BI Accession Number(s): [id number] cc: Vicky Weiner CNM; So Anderson MD EXAMINATION: MM DIAGNOSTIC DIGITAL BREAST TOMOSYNTHESIS, BILATERAL Limited left breast ultrasound. CLINICAL INFORMATION: Left breast pain. Previous biopsy in the upper outer left breast of multiple papillomas. COMPARISON: Mammography: Comparison is made with relevant prior exams. TECHNIQUE: Digital breast mammography with tomosynthesis is performed in both the craniocaudal and mediolateral oblique views along with computer-aided detection (CAD). FINDINGS: The breasts are heterogeneously dense, which may obscure small masses (ACR BI-RADS breast composition Category c). Left: Marker clip in the upper outer breast from previous biopsy of multiple papillomas. No suspicious masses calcifications or other abnormal findings. Targeted color Doppler ultrasound scanning in the area the patient's pain from 1-5 o'clock demonstrates normal fibronodular breast tissue. There is no sonographic abnormality. Right: There are no significant masses, abnormal calcifications, or other abnormalities. Results are provided to the patient at time of visit by the technologist. MM/MM tomosynthesis diagnostic BI IMPRESSION: Right: Negative. Left: No mammographic or sonographic abnormality to account for the patient's left breast pain. Recommend clinical evaluation and follow-up. Biopsy clip in the upper outer left breast from multiple papillomas. Papillomas can carry some risk therefore recommend clinical evaluation and follow-up with patient's breast surgeon. ASSESSMENT: BI-RADS BI-RADS 2 - Benign Findings RECOMMENDATION: 1 year F/U This patient's information was entered into a reminder system with a target due date for their next mammogram. Electronically signed by: Aracelis Benton DO 11/12/2024 10:19 AM EDT Dictated By: Aracelis Benton DO Signed By: <Electronically signed by Aracelis Benton DO in OV> 11/12/24 1019 DD/ 0830 TD/TT: 11/12/24 0849 Sander Hand: [facility] External Provider IMG BI PROCEDURES Final Result * (ABNORMAL) Bacterial Vaginosis (09/14/2024 12:00 AM EST) TRICHOMONAS VAGINALIS DETECTION BY PCR NOT DETECTED Not Detect [facility] BACTERIAL VAGINOSIS DETECTION BY PCR POSITIVE(A) Negative [facility] Comment:The BV organism targ ets of the Xpert Xpress MVP test can becommensal in women; Xpert Xpress MVP positive results forbacterial vaginosis should be considered in conjunction withother clinical and patient information to determine thedisease status. Organisms that are not detected by the XpertXpress MVP test have also been reported to be associatedwith BV and aerobic vaginitis.The Xpert Xpress MVP test performance has not been evaluatedin patients under the age of 14. CARMELINA GROUP DETECTION BY PCR NOT DETECTED Not Detect [facility] Carmelina glab krusei PCR NOT DETECTED Not Detect [facility] 09/14/2024 09/14/2024 us Generic External Data Provider LAB MICROBIOLOGY - GENERAL ORDERABLES Final Result [facility] [address] [place] [phone] * Chlamydia/N. Gonorrhoeae RNA, TMA, Urogenitial (09/14/2024 12:00 AM EST) CT PCR NOT DETECTED Not Detect. [facility] Comment:A not detected test result does not exclude the possibilityof infection because test results can be affected byimproper specimen collection, concurrent antibiotic therapy,or the number of organisms in the specimen which may bebelow the sensitivity of the test. As with many diagnostictests, results from the Xpert CT/NG assay should beinterpreted in conjunction with other laboratory andclinical data available to the clinician.Xpert CT/NG performance has not been evaluated in patientsless than 14 years of age. The assay should not be used forthe evaluationof suspected sexual abuse or for other medico-legalindications. Additional testing is recommended in anycircumstance when false positive or false negative resultscould lead to adverse medical, social or psychologicalconsequences. NG PCR NOT DETECTED Not Detect. [facility] Comment:A not detected test result does not exclude the possibilityof infection because test results can be affected byimproper specimen collection, concurrent antibiotic therapy,or the number of organisms in the specimen which may bebelow the sensitivity of the test. As with many diagnostictests, results from the Xpert CT/NG assay should beinterpreted in conjunction with other laboratory andclinical data available to the clinician.Xpert CT/NG performance has not been evaluated in patientsless than 14 years of age. The assay should not be used forthe evaluationof suspected sexual abuse or for other medico-legalindications. Additional testing is recommended in anycircumstance when false positive or false negative resultscould lead to adverse medical, social or psychologicalconsequences. 09/14/2024 09/14/2024 Narrative [facility] - 09/15/2024 3:25 AM EST Vaginal us Generic External Data Provider LAB MICROBIOLOGY - GENERAL ORDERABLES Final Result Performing Organization Address [facility] Co de Phone Number [facility] [address] [place] [phone] * Hepatitis C Antibody with Reflex to HCV, RNA, Quantitative, Real-Time PCR (08/08/2023 9:48 AM EST) Hepatitis C Antibody Nonreactive Nonreactive [facility] Comment:Antibodies to HCV no t detected; does not exclude early acuteHCV infection. Blood Venous blood specimen / Unknown 08/08/2023 9:48 AM EST 08/08/2023 11:11 AM EST us So Anderson MD LAB BLOOD ORDERABLES Final Resul t Performing Organization Address [facility] Co de Phone Number [facility] [address] [place] [phone] * HIV-1/2 Antigen and Antibodies, Fourth Generation, with Reflexes (08/08/2023 9:48 AM EST) HIV AB/AG Nonreactive Nonreactive [facility] Comment:HIV-1 p24 Ag and/or HIV-1/HIV-2 Ab not detected.A test result that is nonreactive does not exclude thepossibility of exposure to or infection with HIV-1 and/orHIV-2. Nonreactive results in this assay for individualswith prior exposure to HIV-1 and/or HIV-2 may be due toantigen and antibody levels that are below the limit ofdetection of this assay.The [employer] HIV Ag/Ab Combo assay result andsupplemental assay results should be interpreted inconjunction with the patient's clinical presentation,history and other laboratory results. If the results areinconsistent with clinical evidence, additional testing issuggested to confirm the result. Blood Venous blood specimen / Unknown 08/08/2023 9:48 AM EST 08/08/2023 11:11 AM EST us So Anderson MD LAB BLOOD ORDERABLES Final Resul t Performing Organization Address City/State/[facility] Co de Phone Number [facility] [address] [place] [phone] * Pap Smear (07/22/2022 10:19 AM EST) 07/22/2022 10:1 9 AM EST 07/22/2022 12:00 PM EST Narrative [facility] - 08/12/2022 3:54 PM EST ----- ------- Name: Dorie Kiser I ?Age/Sex: 42/F ? : 1980 Unit#: [id number] ?? Attend Dr: Vicky Weiner CNM ?Re07/22/22 ?Status: DEP REF ? Location: HO.LNP ?Disch: ? ----- ------- SPEC : [id number] ?RECD: 07/22/22 ? STATUS: ??SOUT ? REQ NUM: [id number] ? LEMUEL: 07/22/221019 ? SUBM DR: Vicky Weiner CNM ? ENTERED: ??07/23/2245 ?SP TYPE: Pap Smr ?OTHR : ? ORDERED: ??Pap Smear ? Interpretation ?? Satisfactory for evaluation. ?? Negative for intraepithelial lesion or malignancy. ? HPV mRNA E6/E7: ?NOT DETECTED ? This assay detects E6/E7 viral messenger RNA (mRNA) from 14 high-risk HPV types (16, 18, ?? 31, 33, 35, 39, 45, 51, 52, 56, 58, 59, 66, 68) ? HPV testing performed by [facility], [place], [place]. ??See reference laboratory ?? portion of the EMR for entire report. ?Clinical Information LMP: 07/19/22 Previous PAP test: 04/17/21, WNL ? Material Received ?? ThinPrep-Cervical ----- ------- Signed (signature on file) Ruma Vick Fay 08/12/22 1554 ? ----- ------- ? END OF REPORT ? us [facility] External Provider LAB CYT OLOGY ORDERABLES Final Result [facility] [address] [place], [place] [phone] from Last 3 Months or Most Recently Relevant to Health Maintenance Insurance [facility] Care Teams Hospitality Director Relationship Specialty Start Date End Date So Anderson MD [address] [place] [phone] PCP - General Family Medicine 05/09/23
--- OUTSIDE RECORDS SUMMARY | 2024-12-10 10:41 | XMS_ITS | Encounter Summary ---
Author Organization [employer] [facility] Address [address] [facility] 7t [place] [address] Care Team Providers Care Hog Sticker Name Role Phone Oscar Ngo Primary Care Provider Unavail able So Anderson MD Primary Care Provider [phone] Encounter Details Date Type Department Care Team (Late st Contact Info) Description 03/05/[address] [facility] [address] [place] [address] Provider, MD Kevin Social History Tobacco Use [...] documented as of this encounter Care Teams Hog Sticker Relationship Specialty Start Date End Date Oscar Ngo AGNP PCP - General Family Medicine 10/10/22 05/08/23 So Anderson MD [address] [place] [address] PCP - General Family Medicine 05/09/23 documented as of this encounter
--- OUTSIDE RECORDS SUMMARY | 2024-12-10 10:41 | XMS_ITS | Encounter Summary ---
Author Organization [employer] Address [address] [facility] 7t [place] [address] Care Team Providers Care Upholstery Cleaner Name Role Phone So Anderson MD Primary Care Provider [phone] Encounter Details Date Type Department Care Team ([facility] st Contact Info) Description 08/22/2023 Orders Only [facility] [address] [place], [place] [phone] So Anderson MD [address] [place], [place] [phone] Anemia, unspecified type (Primary Dx) Social History [...] documented as of this encounter Care Teams Upholstery Cleaner Relationship Specialty Start Date End Date So Anderson MD [address] [place] [phone] PCP - General Family Medicine 05/09/23 documented as of this encounter
== END 2024-12-10 10:37 | disposition home or self-care (01) ==
LOC: HO.HGS 09:56
PROVIDERS: PCP Family Medicine; Referring Provider Family Medicine; Visit Provider Surgery
DX: R92.1 Mammographic calcification found on diagnostic imaging of breast (principal); D24.2 Benign neoplasm of left breast
CPT/HCPCS: 99204

== ENCOUNTER → 2024-12-10 09:55 | Outpatient (BNVA) | payer MEDICAID, SELFPAY | PROVIDERS: PCP Family Medicine; Referring Provider Family Medicine; Visit Provider Surgery | DX: R92.1 Mammographic calcification found on diagnostic imaging of breast (principal); D24.2 Benign neoplasm of left breast | CPT/HCPCS: 99202 ==

== ENCOUNTER 2025-01-26 07:47 | Outpatient (REF) | payer OTHER, SELFPAY ==
--- NOTE | ~2025-01-26 | MM_ITS ---
EXAMINATION: MM MAMMOGRAM GUIDED RFID LOCALIZATION BREAST, LEFT CLINICAL INFORMATION: [Left biopsy-proven papillomas for surgical excisional biopsy. COMPARISON: Priors on PACS. TECHNIQUE NEEDLE LOC: Proper informed consent is obtained from the patient after discussion of the procedure, potential risks and complications, and alternatives including declining the procedure today. Patient was given an opportunity for questions. The patient appeared to understand. The patient consented to the procedure and signed the consent form. GUIDANCE: Digital mammography. APPROACH: Lateral Medial. TARGET: Top hat blocker clip. ANESTHESIA: carbonated lidocaine 1%: 10 mL. LOCALIZATION SYSTEM: [employer] LOCallizer Wire-Free Guidance System with 12g needle applicator. RADIOFREQUENCY TAG: ID # [id number] RF Tag ID confirmed with LOCalizer Guidance System prior to placement. The skin is prepped and local anesthesia administered. The needle is positioned and RFID tag deployed. Final images demonstrate the LOCalizer RF tag to reside adjacent to the top hat clip The patient tolerated the procedure well and had no immediate complications. Dressing placed and home instructions reviewed. MM/MM RF Tag device LT IMPRESSION: -Status post left breast RFID localization. Electronically signed by: Aracelis Benton DO 01/26/2025 10:01 AM EDT
--- OUTSIDE RECORDS SUMMARY | 2025-01-26 07:50 | XMS_ITS | Encounter Summary ---
Author Organization [employer] Address [address] [facility] 7t [place] [address] Care Team Providers Care Gyn Name Role Phone So Anderson MD Primary Care Provider [phone] Encounter Details Date Type Department Care Team ([facility] st Contact Info) Description 06/04/2024 Orders Only [facility] [address] [place], [place] [phone] So Anderson MD [address] [place], [place] [phone] Social History Tobacco Use Types Packs/Day Years [...] documented as of this encounter Care Teams Gyn Relationship Specialty Start Date End Date So Anderson MD [address] [place] [phone] PCP - General Family Medicine 05/09/23 documented as of this encounter
[2025-01-26] MEDS: Lidocaine HCl 1 % 20 ML VIAL 18 ML SUBCUT (08:49)
[2025-01-26] MEDS: Sodium Bicarbonate 8.4% 50 MEQ/50 ML VIAL SUBCUT (08:50)
== END 2025-01-26 07:48 | disposition home or self-care (01) ==
LOC: HO.MAMMO 07:47
PROVIDERS: PCP Family Medicine; Visit Provider Surgery
DX: D24.2 Benign neoplasm of left breast (principal); R92.8 Other abnormal and inconclusive findings on diagnostic imaging of breast
CPT/HCPCS: 19281; C1819; J2003

== ENCOUNTER → 2025-01-26 08:00 | Outpatient (BNV) | payer OTHER, SELFPAY | PROVIDERS: PCP Family Medicine; Visit Provider Internal Medicine | DX: D24.2 Benign neoplasm of left breast (principal) | CPT/HCPCS: 19281 ==

== ENCOUNTER 2025-01-31 06:44 | Day surgery (SDC) | payer OTHER, SELFPAY ==
--- OUTSIDE RECORDS SUMMARY | 2025-01-25 13:37 | XMS_ITS | Encounter Summary ---
Author Organization [employer] Address [address] [facility] 7t [place] [address] Care Team Providers Care Engineering Professor Name Role Phone So Anderson MD Primary Care Provider [phone] Encounter Details Date Type Department Care Team ([facility] st Contact Info) Description 06/04/2024 Orders Only [facility] [address] [place], [place] [phone] So Anderson MD [address] [place], [place] [phone] Social History Tobacco Use Types Packs/Day Years [...] documented as of this encounter Care Teams Engineering Professor Relationship Specialty Start Date End Date So Anderson MD [address] [place] [phone] PCP - General Family Medicine 05/09/23 documented as of this encounter
[2025-01-27 09:29] VITALS: BMI 29.8
--- NOTE | 2025-01-27 15:09 | HO.ANESPROP2 ---
Documented by User: Francia Triplett NP 01/27/25 15:10 HPI - Anesthesia Eval Consult details Narrative: 44yo F for Left Breast Lumpectomy w/LOCalizer PMFSH Active Problems Active Problems: All Active Problems Papilloma of left breast (Acute) Abnormal mammogram (Acute) Exhaustion (Acute) Cervical cancer screening (Acute) Well woman exam with routine gynecological exam (Acute) Hx of tubal ligation (Acute) Breast calcification, left (Acute) Past Medical History Medical History (Updated 01/27/25 @ 09:40 by Izabel Palomino RN) Depression Anxiety Breast calcification, left Family History Family History Maternal Grandmother Breast cancer Other Lung cancer Family history of problems with anesthesia: No Surgical History Surgical History (Updated 01/27/25 @ 09:40 by Izabel Palomino RN) Hx of breast lump removal Hx of tubal ligation History of Problems with Anesthesia: No (Never had anesthesia) Social History Social History Alcohol intake: current Alcohol intake frequency: holidays/special occasions only Patient Tobacco Use Status: Former Tobacco user Second Hand Smoke Exposure: No Use of substances other than those prescribed or required for medical reasons: Yes Substance Use Type: Marijuana Substance Use Frequency: Daily Have you been hit, kicked, punched, or otherwise hurt by someone within the past year? If so, by whom?: No Are you DNR?: No Advance Directives: No Advance Directives Information Provided: Yes Advance Directives on File: No Patient : No : No Poor oral hygiene: No Gender identity: Female Meds Allergies Allergy/AdvReac Type Severity Reaction Status Date / Time No Known Allergies Allergy Verified 12/10/24 10:04 [No Known Allergies*] Home Medications ?Medication ?Instructions ?Recorded ?Confirmed ?Last Taken ?Type melatonin 3 mg tablet 3 mg PO BEDTIME 01/27/25 01/27/25 Unknown History venlafaxine 37.5 mg 75 mg PO DAILY 01/27/25 01/27/25 Unknown History capsule,extended release 24 hr Exam Height,Weight and Vital Signs: Height 5 ft 2 in Weight 73.936 kg Assessment and Plan Assessment Anesthesia Assessment: Chart Reviewed Final Anesthetic Review Family History of Problems with Anesthesia: No History of Problems with Anesthesia: No (Never had anesthesia) Documented by User: Elias Oconnell MD 01/31/25 08:35 PMFSH Past Medical History Medical History (Updated 01/27/25 @ 09:40 by Izabel Palomino RN) Depression Anxiety Breast calcification, left Family History Family History Maternal Grandmother Breast cancer Other Lung cancer Surgical History Surgical History (Updated 01/27/25 @ 09:40 by Izabel Palomino RN) Hx of breast lump removal Hx of tubal ligation Social History Social History Alcohol intake: current Alcohol intake frequency: holidays/special occasions only Patient Tobacco Use Status: Former Tobacco user Second Hand Smoke Exposure: No Use of substances other than those prescribed or required for medical reasons: Yes Substance Use Type: Marijuana Substance Use Frequency: Daily Have you been hit, kicked, punched, or otherwise hurt by someone within the past year? If so, by whom?: No Are you DNR?: No Advance Directives: No Advance Directives Information Provided: Yes Advance Directives on File: No Patient : No : No Poor oral hygiene: No Gender identity: Female Meds Allergies Allergy/AdvReac Type Severity Reaction Status Date / Time No Known Allergies Allergy Verified 12/10/24 10:04 [No Known Allergies*] Home Medications ?Medication ?Instructions ?Recorded ?Confirmed ?Last Taken ?Type melatonin 3 mg tablet 3 mg PO BEDTIME 01/27/25 01/27/25 Unknown History venlafaxine 37.5 mg 75 mg PO DAILY 01/27/25 01/27/25 Unknown History capsule,extended release 24 hr Exam Airway Mallampati Class: II TM Dist: >3cm Neck ROM: Full Loose/Missing/Broken Teeth: No Heart: RRR Lungs: cta Assessment and Plan Final Anesthetic Review ASA Class: II Patient Risk: Low Procedure Risk: Low Anesthetic Plan Anesthetic Plan: GA
[2025-01-31] VITALS (8 sets, daily range): BP systolic 97–112; BP diastolic 54–78; PULSE 70–81; RESP 11–18; TEMP 36.3–37; O2SAT 97–100; BMI 29.2
--- NOTE | ~2025-01-31 | MM_ITS ---
Limited left breast specimen radiographs demonstrate the tag and the marker clip within the specimen. Electronically signed by: Aracelis Benton DO 01/31/2025 09:58 AM EDT
[2025-01-31] MEDS: Lactated Ringers 1,000 ML 100 ML IVCONT (07:18)
--- NOTE | 2025-01-31 07:19 | MHC.SHP ---
Pre-Procedural Eval Section A - 24 Hr Update-Section A only Date of Service: 01/31/25 The patient is an INPATIENT: No Changes since office visit: Yes Patient answered all questions; No Cold of Flu in the past 2 weeks, No New Medical Problems and No Changes in Medication The patient has been examined within 24 hours of the surgical procedure. The History & Physical has been completed within 30 days and I have reviewed it.: No Section B - Complete if H&P > 30 days Chief Complaint: Mammographic calcification found on diagnostic aditya Details of Present Illness: No change in symptoms, LOCalizer in place Relevant Family History (Specify if Yes): No Relevant Social History: None Present Medications: see Short Stay Collaborative assessment Medical History: No relevant PMH History of Previous Operations: No relevant previous surgery Allergies: Allergies Allergy/AdvReac Type Severity Reaction Status Date / Time No Known Allergies Allergy Verified 12/10/24 10:04 [No Known Allergies*] Review of Systems Sugical H&P ROS: Negative: Constitution, Cardiovascular, Respiratory, Neurological, Psychiatric, Gastrointestinal, Genitourinary, Musculoskeletal, Integumentary and Eyes/Ears/Nose/Throat Exam Surgical H&P Exam: Normal: HEENT, Normal: Heart, Normal: Lungs, Normal: Extremities, Normal: Abdomen, Normal: Skin and Normal: Neurological Plan Diagnosis/Plan: Unchanged I have reviewed the history and physical and performed a pertinent physical examination on my patient. No changes have occurred unless specified. Time Spent With Patient Time: Total time managing care of this patient today ____ minutes.
--- NOTE | 2025-01-31 09:43 | P.OP_ITS ---
Operative Note Operative Note Date of Service: 01/31/25 Narrative: Preoperative diagnosis: Papilloma left breast Postoperative diagnosis: Same Procedure: Left breast lumpectomy with localizer Surgeon: Dinesh Mccabe MD [employer] Sales Counter Manager: Roxann Pierce PA-C; KARAN Ackerman Anesthesia: General LMA Indications for procedure: 44-year-old female patient presenting with a recent complaint of a left breast lump in the upper outer quadrant. Subsequent mammogram revealed a biopsy site in the upper outer quadrant from a previous stereotactic guided core biopsy. This previous biopsy in 2020 revealed multiple papilloma with no malignancy or atypia. She presents today for lumpectomy to remove the multiple papilloma. Operative findings: Marking clip and localizer clip noted in the specimen x-ray Specimen: Left breast lumpectomy Estimated blood loss: 5 mL Complications: None Procedure details: Patient was brought to the OR placed in a supine position. After administering general anesthesia the patient's left breast was prepped with ChloraPrep and draped in a sterile fashion. A surgical time-out was called the consent confirmed. Patient received preoperative antibiotics and Venodyne boots were in place. Local anesthesia consisting of 0.5% Sensorcaine was infiltrated in the upper outer quadrant over the localizer clip. A longitudinal incision was then made directly over the clip and carried out through subcutaneous tissue. Superior and inferior skin flaps were then created. Using the localizer were of tissue surrounding this clip was then obtained. The specimen was removed and a specimen x-ray performed in the OR. This confirmed the marking clip and localizer clip within the specimen. The specimen was then sent to pathology for further examination. Hemostasis was assured using electrocautery and free ties of 3-0 Polysorb. Once gross pathology was confirmed, the deep breast tissue was reapproximated using interrupted 3-0 Polysorb sutures. Skin was reapproximated using interrupted 3-0 Polysorb sutures dermis and skin was closed using a running subcuticular 4-0 Polysorb suture. Steri-Strips, 4 x 4 gauze and Tegaderm were then applied. The patient tolerated the procedure well. Sponge, instrument, and needle counts reported as correct. The patient was transferred to PACU in stable condition.
[2025-01-31] MEDS: oxyCODONE HCl Immed Release 5 MG TABLET PO (10:56)
[2025-01-31] MEDS: Acetaminophen 325 MG TABLET 650 MG PO (10:57)
== END 2025-01-31 11:56 | disposition home or self-care (01) ==
PROVIDERS: PCP Family Medicine; Visit Provider Surgery
PROC: (CPT 19301; principal; 2025-01-31 08:40)
DX: D24.2 Benign neoplasm of left breast (principal); N60.22 Fibroadenosis of left breast; N60.92 Unspecified benign mammary dysplasia of left breast; Z79.899 Other long term (current) drug therapy; Z98.51 Tubal ligation status; Z87.891 Personal history of nicotine dependence
CPT/HCPCS: 19301; 88307; 88329; 88341; 88342; J0690; J2003; J2250; J2405; J2704; J2795; J3010

== ENCOUNTER → 2025-01-31 06:44 | Outpatient (BNV) | payer OTHER, SELFPAY | PROVIDERS: PCP Family Medicine; Visit Provider Surgery | DX: D24.2 Benign neoplasm of left breast (principal) | CPT/HCPCS: 19301 ==

== ENCOUNTER 2025-02-10 10:01 | Outpatient (AMB) | payer OTHER, SELFPAY ==
--- NOTE | 2025-02-10 10:07 | MHC.OFFVIS ---
Vital Signs 02/10/25 10:16 Height 5 ft 2 in Weight 155 lb 6 oz BMI 28.4 BP 115/68 Blood Pressure Location Lt brachial Position Sitting Pulse 68 Intake Visit Reasons: S/P Lt. breast lumpectomy w/localizer Intake Note: Patient is seen in office for post op assessments post Left breast lumpectomy. Pt c/o: denies any concerns healing as expected surgery:01/31/25 Yardage Caller Required: No Accompanied by: Self / Same As Patient Allergies No Known Allergies (No Known Allergies*) Allergy (Verified 02/10/25 10:15) Medication List - Last Reconciled 02/10/25 by Dinesh Mccabe MD melatonin 3 mg PO BEDTIME venlafaxine ER 75 mg PO DAILY HPI Comments Details: 44-year-old female patient presenting with a left breast lump which is causing a pinching sensation intermittently. The pain does not necessarily occur every day and is not associated with her menstrual cycle. She denies any overlying skin changes or nipple discharge. She previously underwent a stereotactic guided biopsy in 2020 which revealed multiple papilloma but no evidence of atypia or malignancy. Her most recent mammogram and ultrasound dated 11/12/2024 revealed no mammographic or sonographic abnormality to account for the patient's left breast pain. Biopsy clip in the upper outer left breast with multiple papillomas. Routine follow-up in 1 year is recommended. Patient's family history is significant for her paternal grandmother having breast cancer approximately 8 years ago. Her menarche was the age of 14. She is 1 para 1 had her 1st child when she was 20. She underwent left breast lumpectomy with localizer on 01/31/2025. Subsequent pathology revealed left breast intraductal papilloma with extensive papillomatosis and sclerosing adenosis, focal lobular neoplasm (ALH/LCIS), focal atypical ductal hyperplasia, negative margins. There was no evidence of invasive malignancy. The pathology was reviewed with the patient and a copy provided. [facility] Medical History Atypical ductal hyperplasia of left breast Depression Anxiety Breast calcification, left Surgical History History of lumpectomy of left breast (01/31/25) Hx of tubal ligation Family History Maternal Grandmother Breast cancer Other Lung cancer Social History Alcohol intake: current Alcohol intake frequency: holidays/special occasions only Patient Tobacco Use Status: Former Tobacco user Second Hand Smoke Exposure: No Substance Use Type: Marijuana Gender identity: Female Female Reproductive History Menstrual Age of Menarche: 14 Review of Systems Const All systems reviewed & are unremarkable except as noted in HPI and below Physical Exam Vital Signs: Last Vital Signs Pulse 68 02/10/25 10:16 BP 115/68 02/10/25 10:16 BMI result Body Mass Index 28.4 Const General: no acute distress Nutritional Appearance: well nourished Orientation/consciousness: patient oriented x3 Chest Other: Well-healed incision left breast without redness or discharge. GI Inspection: Yes normal to inspection Skin Other: Warm, dry, no rash Neuro General: patient oriented x3 Extrem Other: No edema Assessment & Plan Assessment & Plan (1) Atypical ductal hyperplasia of left breast: Code(s): N60.92 - Unspecified benign mammary dysplasia of left breast Category: Medical (2) At increased risk of breast cancer: Code(s): Z91.89 - Other specified personal risk factors, not elsewhere classified Category: Medical Plan 44-year-old female patient returning 1 week following left breast lumpectomy with localizer found to have atypical ductal hyperplasia and a lobular neoplasia. No malignancy was identified. She tolerated the procedure well and her wounds are healing nicely. I recommended evaluation by Medical Oncology for risk reduction strategies. She will be placed on high-risk protocol with yearly mammogram and breast MRI. I recommended follow-up examination in 6 months as well. She expressed understanding and agrees with the plan. Orders: Referrals Hematology & Oncology Referral N60.92 - Unspecified benign mammary dysplasia of left breast, Z91.89 - Other specified personal risk factors, not elsewhere classified Coding Level of Care Code Global (80783) Diagnoses Atypical ductal hyperplasia of left breast N60.92 At increased risk of breast cancer Z91.89
[2025-02-10 10:16] VITALS: BP 115/68; PULSE 68; BMI 28.4
--- OUTSIDE RECORDS SUMMARY | 2025-02-10 11:14 | XMS_ITS | Encounter Summary ---
Author Organization [employer] Address [address] [facility] [address]t [place] [address] Care Team Providers Care Middleware Engineer Name Role Phone So Anderson MD Primary Care Provider [phone] Encounter Details Date Type Department Care Team ([facility] st Contact Info) Description 06/04/2024 Orders Only [facility] MEDICINE [address] [place], [place] [phone] So Anderson MD [address] [place], [place] [phone] Social History Tobacco Use Types Packs/Day Years [...] documented as of this encounter Care Teams Middleware Engineer Relationship Specialty Start Date End Date So Anderson MD [address] [place] [phone] PCP - General Family Medicine 05/09/23 documented as of this encounter
== END 2025-02-10 10:20 | disposition home or self-care (01) ==
PROVIDERS: PCP Family Medicine; Visit Provider Surgery
DX: N60.92 Unspecified benign mammary dysplasia of left breast (principal); Z91.89 Other specified personal risk factors, not elsewhere classified
CPT/HCPCS: 99024

== ENCOUNTER → 2025-02-10 10:01 | Outpatient (BNVA) | payer MEDICAID, SELFPAY | PROVIDERS: PCP Family Medicine; Visit Provider Surgery | DX: N60.92 Unspecified benign mammary dysplasia of left breast (principal); R92.8 Other abnormal and inconclusive findings on diagnostic imaging of breast; Z91.89 Other specified personal risk factors, not elsewhere classified | CPT/HCPCS: 99212 ==

== ENCOUNTER → 2025-03-31 14:00 | Outpatient (BNV) | payer OTHER, SELFPAY | PROVIDERS: PCP Family Medicine; Visit Provider Internal Medicine Medical Oncology | DX: N60.82 Other benign mammary dysplasias of left breast (principal) | CPT/HCPCS: 99204 ==

== ENCOUNTER 2025-04-19 15:05 | Outpatient (AMB) | payer OTHER, SELFPAY ==
[2025-04-19 15:12] VITALS: BP 112/74; PULSE 60; O2SAT 99; BMI 28.5
--- NOTE | 2025-04-19 15:12 | MHC.OFFVIS ---
Vital Signs 04/19/25 15:12 Height 5 ft 2 in Weight 156 lb BMI 28.5 BP 112/74 Blood Pressure Location Lt brachial Position Sitting Pulse 60 Pulse Source Pulse Oximeter Pulse Oximetry (%) 99 Oxygen Delivery Method Room Air Intake Visit Reasons: Equality screening Intake Note: New pt for initial colo screening. Last PCP note reports no sx. CC; Pt denies any GI sx or concerns at this time. Pt reports having recent breast lumpectomy per Dr. Mccabe. No pertinent FMHx. Acute Care Occupational Therapist Required: No Accompanied by: Self / Same As Patient Allergies No Known Allergies (No Known Allergies*) Allergy (Verified 02/10/25 10:15) HPI HPI Equality screening: Details: 44 year old? female with past medical history of anxiety, atypical ductal hyperplasia of left breast is here today for pre colonoscopy screening.? Patient was sent to us by her PCP.? This is her first colonoscopy screening.? Patient denies any gastrointestinal symptoms in the past or at present.? Denies any personal or family history of gastrointestinal disease, colon polyps, or CRC.? Denies history of difficulty with sedation or anesthesia in the past.? Negative for history of sleep apnea.? Denies any history of cardiac, renal, pulmonary, or hepatic disease.??Patient reports occasional reflux controlled with diet. No history of infectious? diseases like hepatitis A, B, C, HIV or tuberculosis.? Patient is not on any anticoagulation [facility] Medical History Atypical ductal hyperplasia of left breast Depression Anxiety Breast calcification, left Surgical History History of lumpectomy of left breast (01/31/25) Hx of tubal ligation Family History Maternal Grandmother Breast cancer Lung cancer Maternal Grandfather Diabetes Social History Household Members: Family Alcohol intake: current Alcohol intake frequency: holidays/special occasions only Patient Tobacco Use Status: Former Tobacco user Second Hand Smoke Exposure: No Substance Use Type: Marijuana service: No Current occupational status: employed Gender identity: Female Female Reproductive History Menstrual Age of Menarche: 14 Review of Systems Const Denies weight gain and Denies weight loss ENT Reports no additional complaints, Denies dysphagia and Denies odynophagia Card Reports no additional complaints Resp Reports no additional complaints GI Denies abdominal pain, Denies belching, Denies melena, Denies bloating, Denies change in bowel habits, Denies dysphagia, Denies excessive flatus, Denies dyspepsia, Denies heartburn, Denies diarrhea, Denies loose stools, Denies nausea, Denies odynophagia and Denies vomiting Musc Reports no additional complaints Neuro Reports no additional complaints Psych Reports no additional complaints Endo Reports no additional complaints Physical Exam Vital Signs: Last Vital Signs Pulse 60 04/19/25 15:12 BP 112/74 04/19/25 15:12 Pulse Ox 99 04/19/25 15:12 Oxygen Delivery Method Room Air 04/19/25 15:12 BMI result Body Mass Index 28.5 Const General: healthy appearing, no acute distress and well developed Nutritional Appearance: well nourished Orientation/consciousness: patient oriented x3 Resp Effort & Inspection: normal respiratory effort, able to speak in complete sentences, no tracheal deviation and symmetric chest movement Auscultation: clear to auscultation bilaterally Cardio Rate: regular rate GI Inspection: Yes normal to inspection and No distended Palpation (GI): Soft to palpation, not firm, nontender and No hepatosplenomegaly present Auscultation: normal bowel sounds General: Yes no CVA tenderness Back/Spine/Pelvis Back: no CVA tenderness Skin General skin exam: elasticity normal, turgor normal and dry skin Neuro General: patient oriented x3 Psych Appearance: grossly normal Mental Status: mental status grossly normal Assessment & Plan Assessment & Plan (1) Screen for colon cancer: Code(s): Z12.11 - Encounter for screening for malignant neoplasm of colon Plan Patient denies any cardiac or respiratory symptoms.? Occasional reflux triggered by certain food. Diet controlled. Denies any issues with anesthesia in the past.? Denies any history of sleep apnea.? No history infectious diseases in the past or present.? Not on any anticoagulation therapy.? No family or personal history of colon cancer or polyps.? Patient denies melena, hematochezia, unintentional weight loss or ribbon like stools.? Discussed at length the pre-procedure,? prep, diet & medications as well as what to expect prior, during and after the procedure.?? Stressed the importance of good bowel prep.? Recommended the use of Vaseline or Calmoseptine OTC & baby wipes with bowel movements to promote comfort.? ?Patient verbalizes understanding and agrees to plan of care.? She was given the opportunity to ask questions and all questions answered.? We will see her after the procedure.? Medications: New polyethylene glycol 3350 (Miralax) As directed by gastroenterology department at [facility] 238 grams PO ONCE 238 grams 0RF Z12.11 - Encounter for screening for malignant neoplasm of colon bisacodyl (Dulcolax (bisacodyl)) take 4 tabs at noon the day before your colonoscopy 20 mg (4 x 5 mg) PO ONCE 4 tabs 0RF constipation 1 day Z12.11 - Encounter for screening for malignant neoplasm of colon Coding Level of Care Code New Pt Level 3 (29891) Diagnoses Screen for colon cancer Z12.11 Time Spent (min) 40 Comment 30 minutes spent with patient and additional 10 minutes spent reviewing her records
--- OUTSIDE RECORDS SUMMARY | 2025-04-19 16:00 | XMS_ITS | Clinical Summary ---
Author Organization [employer] Address [address] [facility] 7[address] [place] [address] Care Team Providers Care Psychological Aide Name Role Phone So Anderson MD Primary Care Provider [phone] Allergies No known active allergies Medications * [...] (11/08/2024 3:36 PM EDT): - 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 - Last Cotest on 07/22/22 NILM with negative high-risk HPV - Perimenopausal Assessment & Plan (05/31/2024 5:18 AM EDT): - 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 - Last PAP on 07/22/22 NILM with negative high-risk HPV - ?Rachael-menopausal - Check lab Assessment & Plan (08/10/2023 5:04 PM EST): - 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 - Last PAP on 07/22/22 NILM with negative high-risk HPV - ?Rachael-menopausal - Check lab - Transvaginal US History of miscarriage 08/04/2023 Family history of diabetes mellitus type II 07/25 Family history of Alzheimer's disease 08/04/2023 History of femur fracture 08/04/2023 Insomnia 12/06/2022 Assessment & Plan (11/08/2024 9:42 AM EDT): - She had [place] = 12 and sleep study was ordered by previous PCP in November 2022 - continue improving sleep hygiene - stress reduction - take melatonin 3 hours prior to desired bedtime - discussed about judicious use of marijuana Assessment & Plan (08/10/2023 5:03 PM EST): - She had [place] = 12 and sleep study was ordered by previous PCP in November 2022 - continue improving sleep hygiene - stress reduction - take melatonin 3 hours prior to desired bedtime - discussed about judicious use of marijuana Assessment & Plan (12/06/2022 4:04 PM EDT): [place] = 12 I asked Dorie to call her during our appointment. She was able to call him and he kindly obliged helping us with her [place] questionnaire. I ordered her a polysomnography. I [...] Blood Cell Count 3.80 - 5.10 Million/uL 3.63 Low 3.86 Hemoglobin 11.7 - 15.5 g/dL 11.6 Low 12.7 R 12.5 Hematocrit 35.0 - 45.0 % 34.6 Low 36.7 Low R 37.1 MCV 80.0 - 100.0 fL [...] (08/10/2023 5:08 PM EST): - refer to [facility] Assessment & Plan (12/06/2022 4:04 PM EDT): JOANNA = 9, I informed her of her options in regards to medication. She is not interested in medication at this time. I explained to Dorie that we no longer use N, our behavioral department is now in house. I called and gave them her information. They will call her to set up an appointment. F/up 1 month Assessment & Plan (11/06/2022 5:11 PM EDT): We discussed how anxiety could potentially be causing her symptoms. We will go forward with the N referral and follow up N referral placed. [...] Encounters Date Type Department Care Team Description 01/31/2025 Orders Only GENERIC EXTERNAL DATA DEPARTMENT Provider, Generic External Data 01/26/2025 Orders Only [facility] External Provider, [facility] from Last 3 Months Immunizations Immunization Administration Dates Next Due Hep B, adult [...] 76 11/08/2024 9:43 AM EDT Temperature 36.2 C (97.1 F) 11/08/2024 9:43 AM EDT Respiratory Rate 17 11/08/2024 9:43 AM EDT [...] 1980 Sigmoidoscopy 1979 Family Planning (PISQ) 1994 HPV Vaccines (1 - 3-dose series) 1994 COVID-19 Vaccine ( season) 2024 Influenza Vaccine (#1) 2025 , 06/25/2023, 05/21/2022, Additional history exists Alcohol/Substance Use Screening 05/24/2025 05/24/2024 Depression Screening 05/24/2025 05/24/2024, 05/24/20 Pap Smear 07/22/2025 07/22/2022 Disability Screening 11/08/2025 11/08/2024 SDOH Screening 11/08/2025 11/08/2024 Tobacco Screening 11/08/2025 [...] C Screening Completed 08/08/2023 , 11/08/2022, 06/26/2020 HIB Vaccines Aged Out No longer eligi ble based on patient's age to complete this topic Hepatitis A Vaccines Aged Out No long er eligible based on patient's age to complete this topic IPV Vaccines Aged Out No longer eligi ble based on patient's age to complete this topic Meningococcal B Vaccine Aged Out No l onger eligible based on patient's age to complete this topic Meningococcal Vaccine Aged Out No joelle hien eligible based on patient's age to complete this topic Pneumococcal Vaccine: Pediatrics (0 to 5 Years) and At-Risk Patients (6 to 49) Years Aged Out No longer eligible based on patient's age to complete this topic RSV under 20 months Aged Out No longe r eligible based on patient's age to complete this topic Rotavirus Vaccines Aged Out No longer eligible based on patient's age to complete this topic Procedures Procedure Name Priority Date/Time Associated Diagnosis Comments GROSS AND MICROSCOPIC LEVEL 5 Routine 01/31/2025 9:29 AM EDT BI MM SURGICAL SPECIMEN Routine 01/31/2025 9:10 AM EDT MM RF TAG DEVICE LT Routine 01/26/2025 8 :00 AM EDT BI MAMMOGRAM DIAGNOSTIC TOMOSYNTHESIS BILATERAL Routine 11/12/2024 8:30 AM EDT HEPATITIS C AB W/REFL TO HCV RNA, [...] Recently Relevant to Health Maintenance Results * Gross and Microscopic Level 5 (01/31/2025 9:29 AM EDT) 01/31/2025 9:29 AM EDT 01/31/2025 9:36 AM EDT [facility] - 02/04/2025 9:21 AM EDT ----- ------- Name: Dorie Kiser Suzanne Age/Sex: 44/F : 1980 Unit#: [id number] Attend Dr: Dinesh Mccabe MD Re01/31/25 Status: [facility] Location: [facility] Disch: ----- ------- SPEC : [id number] RECD: 01/31/25 STATUS: VIK ARMENDARIZ NUM: [id number] LEMUEL: 01/31/[address] [facility] [address]: Dinesh Mccabe MD ENTERED: 01/31/25 SP TYPE: Surgical OTHR DR: So Anderson MD ORDERED: Gross Micro L5, IOC, IHC, Add. immunos/2, E-cadherin, p63/4, SMM/4 COMMENTS: Cassettes A1-A19 are placed in formalin at 1022. 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 Focal atypical ductal hyperplasia. Negative margins No evidence of invasive malignancy. Clinical History Papilloma left breast Microscopic Description Sections from the breast excision show intraductal papilloma along with florid epithelial hyperplasia, papillomatosis and extensive sclerosing adenosis. There is focal atypical ductal hyperplasia (A17) and lobular neoplasia (ALH/LCIS). The loss of E- cadherin immunostain supports the diagnosis of lobular neoplasia (A5). Immunohistochemical stains for p63 and SMMS-1 on A10, A12, A15 and A17 highlight the myoepithelial cells, thus excluding an invasive carcinoma. The background breast parenchyma shows fibrocystic changes, columnar cell change and apocrine metaplasia. Material Received Left breast lumpectomy Gross Description Received fresh, for intraoperative consultation, labeled left breast lumpectomy is an 8.0 (medial-lateral) x 6.2 (superior-inferior) x 3.0-4.0 (anterior-posterior) cm portion of focally firm and indurated marcano-white and garcía-yellow lobular fibrofatty breast tissue. As stated on the specimen container and specimen requisition slip a short stitch denotes the superior margin, a long stitch denotes the lateral margin and a loop stitch denotes the deep margin. The margins are inked as follows: anterior-black, posterior-red, superior-blue, inferior-green, medial-orange and lateral-yellow. The specimen is serially sectioned to reveal a central ill-defined mass of dense, rubbery, firm micronodular marcano-white fibrous breast tissue spanning an area measuring 6.0 (medial-lateral) x 4.5 (superior-inferior) x 3.0 (anterior-posterior). There are multiple ill-defined gritty and indurated micronodular foci and microcysts. The [employer] LOCalizer RFID tag is identified with adjacent hemorrhage, however, the T-shaped biopsy clip is not identified. There is no evidence of biopsy site, rather dense fibrotic breast tissue. Synchronizer sections are submitted from lateral to medial as follows: CONTINUED ON NEXT PAGE ----- ------- Name: Dorie Kiser I Age/Sex: 44/F : 1980 Unit#: [id number] Attend Dr: Dinesh Mccabe MD Re01/31/25 Status: [facility] Location: [facility] Disch: ----- ------- SPEC : [id number] RECD: 01/31/25 STATUS: VIK ARMENDARIZ NUM: [id number] LEMUEL: 01/31/[address]: Dinesh Mccabe MD ENTERED: 01/31/25 SP TYPE: Surgical OTHR DR: So Anderson MD ORDERED: Gross Micro L5, IOC, IHC, Add. immunos/2, E-cadherin, p63/4, SMM/4 COMMENTS: Cassettes A1-A19 are placed in formalin at 1022. Gross Description (Continued) A1 lateral, slice 1; A2 inferior, slice 6; A3 anterior, slice 6; A4 central breast tissue, slice 6 absent an inked margin; A5 posterior, slice 7; A6 and A7 central breast tissue, slice 7, absent an inked margin; A8 superior, slice 7; A9 anterior, slice 8; A10 and A11 superior, slice 8; A12 central, slice 8, absent an inked margin; A13 posterior, slice 8; A14 superior, slice 8; A15 inferior, slice 9; A16 anterior, slice 9; A17 superior and inferior, slice 9; A18 medial, slice 9; A19 medial, slice 10. The intraoperative diagnosis is reported to Dr. Mccabe as biopsy site and marker identified with dense fibrous tissue and no distinct suspicious lesion by Dr. Arevalo. (PK) The T-shaped biopsy clip is identified at microtomy in block A7. This case was reviewed intradepartmentally. Special stains ordered and performed: Immunohistochemical stains for E-cadherin on A5; SMMS- 1 and p63 on A10, A12, a15, A17. IHC S/NG Disclaimer NOTE: Unless otherwise stated, all tissue is formalin-fixed and paraffin-embedded. Some or all of the immunohistochemical tests reported herein may have been developed and their performance characteristics determined by [facility]. They have not been cleared or approved by the U.S. Food and Drug Administration (FDA). However, the FDA has determined that such clearance or approval is not necessary. This laboratory is certified under the Clinical Laboratory Improvement Amendments of 1988 (CLIA) as qualified to perform high complexity clinical laboratory testing. CONTINUED ON NEXT PAGE ----- ------- Name: Dorie Kiser I Age/Sex: 44/F : 1980 Unit#: [id number] Attend Dr: Dinesh Mccabe MD Re01/31/25 Status: [facility] Location: [facility] Disch: ----- ------- SPEC : [id number] RECD: 01/31/25 STATUS: VIK ARMENDARIZ NUM: [id number] LEMUEL: 01/31/[address] [facility] [address]: Dinesh Mccabe MD ENTERED: 01/31/25 SP TYPE: Surgical OTHR DR: So Anderson MD ORDERED: Gross Micro L5, IOC, IHC, Add. immunos/2, E-cadherin, p63/4, SMM/4 COMMENTS: Cassettes A1-A19 are placed in formalin at 1022. Copies To: Dinesh Mccabe MD [facility] [address] [place] [address] [phone] So Anderson MD [address] [phone] ----- ------- Signed (signature on file) Luisito Persaud MD 02/04/25 0921 ----- ------- END OF REPORT us Generic External Data Provider LAB BLOOD ORDERAB LES Final Result [facility] [address] [place] [address] [phone] * BI MM SURGICAL SPECIMEN (01/31/2025 9:10 AM EDT) Anatomical Region Laterality Modality Breast Bilateral Mammography 01/31/2025 9:10 AM EDT Narrative 01/31/2025 10:01 AM EDT [place] [address] [id number] Mammography Report Signed Patient: Dorie Kiser I MR#: [id number] : 1980 Acct:[id number] Age/Sex: 44 / F ADM Date: 01/31/25 Loc: [facility] Attending Dr: Dinesh Mccabe MD Ordering Physician: Ulises Tang MD Results: Date of Service: 01/31/25 Follow Up: Procedure(s): MM surgical specimen Accession Number(s): [id number] cc: Ulises Tang MD; So Anderson MD Limited left breast specimen radiographs demonstrate the tag and the marker clip within the specimen. Electronically signed by: Aracelis Benton DO 01/31/2025 09:58 AM EDT Dictated By: Aracelis Benton DO Signed By: <Electronically signed by Aracelis Benton DO in OV> 01/31/2558 DD/ 9 TD/TT: 01/31/25936 Filling Hand: Procedure Note Enderinterpreter, Image - 01/31/[address] [address] [phone] Mammography Report Signed Patient: Dorie Kiser IMR#: [id number] : 1980Acct:[id number] Age/Sex: 44 / FADM Date: 01/31/25 Loc: HO.SSS Attending Dr: Dinesh Mccabe MD Ordering Physician: Ulises Tangults: Date of Service: 01/31/25Follow Up: Procedure(s): MM surgical specimen Accession Number(s): [id number] cc: Ulises Tang MD; So Anderson MD Limited left breast specimen radiographs demonstrate the tag and the marker clip within the specimen. Electronically signed by: Aracelis Benton DO 01/31/2025 09:58 AM EDT Dictated By: Aracelis Bneton DO Signed By: <Electronically signed by Aracelis Benton DO in OV> 01/31/25957 DD/ 9 TD/TT: 01/31/25936 Filling Hand: [facility] External Provider IMG BI PROCEDURES Edited Result - Final * MM RF Tag Device Left (01/26/2025 8:00 AM EDT) Anatomical Region Laterality Modality Breast Left Mammography 01/26/2025 8:00 AM EDT Narrative 01/26/2025 10:04 AM EDT [facility] [address] [place], [place] [address] Mammography Report Signed Patient: Dorie Kiser I MR#: [id number] : 1980 Acct:[id number] Age/Sex: 44 / F ADM Date: 01/26/25 Loc: MAMMO Attending Dr: Dinesh Mccabe MD Ordering Physician: Dinesh Mccabe MD Results: Date of Service: 01/26/25 Follow Up: Procedure(s): MM RF Tag device LT Accession Number(s): [id number] cc: Dinesh Mccabe MD; So Anderson MD EXAMINATION: MM MAMMOGRAM GUIDED RFID LOCALIZATION BREAST, LEFT CLINICAL INFORMATION: [Left biopsy-proven papillomas for surgical excisional biopsy. COMPARISON: Priors on PACS. TECHNIQUE NEEDLE LOC: Proper informed consent is obtained from the patient after discussion of the procedure, potential risks and complications, and alternatives including declining the procedure today. Patient was given an opportunity for questions. The patient appeared to understand. The patient consented to the procedure and signed the consent form. GUIDANCE: Digital mammography. APPROACH: Lateral Medial. TARGET: Top hatchery laborer clip. ANESTHESIA: carbonated lidocaine 1%: 10 mL. LOCALIZATION SYSTEM: [employer] LOCallizer Wire-Free Guidance System with 12g needle applicator. RADIOFREQUENCY TAG: ID # [id number] RF Tag ID confirmed with LOCalizer Guidance System prior to placement. The skin is prepped and local anesthesia administered. The needle is positioned and RFID tag deployed. Final images demonstrate the LOCalizer RF tag to reside adjacent to the top hat clip The patient tolerated the procedure well and had no immediate complications. Dressing placed and home instructions reviewed. MM/MM RF Tag device LT IMPRESSION: -Status post left breast RFID localization. Electronically signed by: Aracelis Benton DO 01/26/2025 10:01 AM EDT Dictated By: Aracelis Benton DO Signed By: <Electronically signed by Aracelis Benton DO in OV> 01/26/25 1001 DD/ 0800 TD/TT: 01/26/25 0845 Filling Hand: Procedure Note Donotuseinterpreter, Image - [facility]/20[facility] [address] [place] [address] Mammography Report Signed Patient: Dorie Kiser IMR#: [id number] : 1980Acct:[id number] Age/Sex: 44 / FADM Date: 01/26/25 Loc: [facility] Attending Dr: Dinesh Mccabe MD Ordering Physician: Dinesh Mccabeesults: Date of Service: 01/26/25Follow Up: Procedure(s): MM RF Tag device LT Accession Number(s): [id number] cc: Dinesh Mccabe MD; So Anderson MD EXAMINATION: MM MAMMOGRAM GUIDED RFID LOCALIZATION BREAST, LEFT CLINICAL INFORMATION: [Left biopsy-proven papillomas for surgical excisional biopsy. COMPARISON: Priors on PACS. TECHNIQUE NEEDLE LOC: Proper informed consent is obtained from the patient after discussion of the procedure, potential risks and complications, and alternatives including declining the procedure today. Patient was given an opportunity for questions. The patient appeared to understand. The patient consented to the procedure and signed the consent form. GUIDANCE: Digital mammography. APPROACH: Lateral Medial. TARGET: Top hatchery laborer clip. ANESTHESIA: carbonated lidocaine 1%: 10 mL. LOCALIZATION SYSTEM: [employer] LOCallizer Wire-Free Guidance System with 12g needle applicator. RADIOFREQUENCY TAG: ID # [id number] RF Tag ID confirmed with LOCalizer Guidance System prior to placement. The skin is prepped and local anesthesia administered. The needle is positioned and RFID tag deployed. Final images demonstrate the LOCalizer RF tag to reside adjacent to the top hat clip The patient tolerated the procedure well and had no immediate complications. Dressing placed and home instructions reviewed. MM/MM RF Tag device LT IMPRESSION: -Status post left breast RFID localization. Electronically signed by: Aracelis Benton DO 01/26/2025 10:01 AM EDT Dictated By: Aracelis Benton DO Signed By: <Electronically signed by Aracelis Benton DO in OV> 01/26/25 1001 DD/ 0800 TD/TT: 01/26/25 0845 Filling Hand: [facility] External Provider IMG BI PROCEDURES Final Result * BI Mammogram Diagnostic Tomosynthesis Bilateral (11/12/2024 8:30 AM EDT) Anatomical Region Laterality Modality Breast Bilateral Mammography 11/12/2024 8:30 AM EDT Narrative 11/12/2024 10:22 AM EDT [facility] [address] [place] [address] Mammography Report Signed Patient: Dorie Kiser I MR#: [id number] : 1980 Acct:[id number] Age/Sex: 44 / F ADM Date: 11/12/24 Loc: MAMMO Attending Dr: Vicky Weiner CNM Ordering Physician: Vicky Weiner CNM Results: 2Beni gn Findings Date of Service: 11/12/24 Follow Up: 1 Year From [facility] Mammogram Procedure(s): MM tomosynthesis diagnostic BI Accession Number(s): [id number] cc: Vicky Weiner CNM; So Anderson MD [...] 11/12/24 1019 DD/ 0830 TD/TT: 11/12/24 0849 Filling Hand: Procedure Note Donotuseinterpreter, Image - 11/12/2024 [facility] [address] [place] [address] Mammography Report Signed Patient: Dorie Kiser IMR#: [id number] : 1980Acct:[id number] Age/Sex: 44 / FADM Date: 11/12/24 Loc: HO.MAMMO Attending Dr: Vicky Weiner CNM Ordering Physician: Vicky Weineresults: 2Beni gn Findings Date of Service: 11/12/24Follow Up: 1 Year From [facility] Mammogram Procedure(s): MM tomosynthesis diagnostic BI Accession Number(s): [id number] cc: Vicky Weiner CNM; So Anderson MD [...] 11/12/24 1019 DD/ 0830 TD/TT: 11/12/24 0849 Filling Hand: [facility] External Provider IMG BI PROCEDURES Final Result * Hepatitis C Antibody with Reflex to HCV, RNA, Quantitative, Real-Time PCR (08/08/2023 9:48 AM EST) Hepatitis C Antibody Nonreactive Nonreactive [facility] Comment:Antibodies to HCV no t detected; does not exclude early acuteHCV infection. Blood Venous blood specimen / Unknown 08/08/2023 9:48 AM EST 08/08/2023 11:11 AM EST So Anderson MD LAB BLOOD ORDERABLES Final Resul t [facility] [address] [place] [phone] * HIV-1/2 Antigen and Antibodies, Fourth Generation, with Reflexes (08/08/2023 9:48 AM EST) HIV AB/AG Nonreactive Nonreactive [facility] Comment:HIV-1 p24 Ag and/or HIV-1/HIV-2 Ab not detected.A test result that is nonreactive does not exclude thepossibility of exposure to or infection with HIV-1 and/orHIV-2. Nonreactive results in this assay for individualswith prior exposure to HIV-1 and/or HIV-2 may be due toantigen and antibody levels that are below the limit ofdetection of this assay.The [employer] HIV Ag/Ab Combo assay result andsupplemental assay results should be interpreted inconjunction with the patient's clinical presentation,history and other laboratory results. If the results areinconsistent with clinical evidence, additional testing issuggested to confirm the result. Blood Venous blood specimen / Unknown 08/08/2023 9:48 AM EST 08/08/2023 11:11 AM EST us So Anderson MD LAB BLOOD ORDERABLES Final Resul t [facility] [address] [place] [phone] * Pap Smear (07/22/2022 10:19 AM EST) 07/22/2022 10:1 9 AM EST 07/22/2022 12:00 PM EST Narrative [facility] - 08/12/2022 3:54 PM EST ----- ------- Name: Dorie Kiser I Age/Sex: 42/F : 1980 Unit#: [id number] Attend Dr: Vicky Weiner CNM Re07/22/22 Status: DEP REF Location: HO.LNP Disch: ----- ------- SPEC : [id number] RECD: 07/22/22-1199 STATUS: VIK ARMENDARIZ NUM: [id number] LEMUEL: 07/22/22-[address] [facility] [address]: HusamVicky [facility] ENTERED: 07/23/22 SP TYPE: Pap Smr OTHR DR: ORDERED: Pap Smear Interpretation Satisfactory for evaluation. Negative for intraepithelial lesion or malignancy. HPV mRNA E6/E7: NOT DETECTED This assay detects E6/E7 viral messenger RNA (mRNA) from 14 high-risk HPV types (16, 18, 31, 33, 35, 39, 45, 51, 52, 56, 58, 59, 66, 68) HPV testing performed by [facility], [place], [place]. See reference laboratory portion of the EMR for entire report. Clinical Information LMP: 07/19/22 Previous PAP test: 04/17/21, WNL Material Received ThinPrep-Cervical ----- ------- Signed (signature on file) Ruma Vick Fay 08/12/22 1554 ----- ------- END OF REPORT [facility] External Provider LAB [facility] ORDERABLES Final Result [facility] [address] [place] [phone] from Last 3 Months or Most Recently Relevant to Health Maintenance Insurance [facility] Care Teams Psychological Aide Relationship Specialty Start Date End Date So Anderson MD [address] [place] [address] PCP - General Family Medicine 05/09/23
--- OUTSIDE RECORDS SUMMARY | 2025-04-19 16:00 | XMS_ITS | Encounter Summary ---
Author Organization [employer] Address [address] [facility] [address] [place] [address] Care Team Providers Care Hydraulic Technician Name Role Phone So Anderson MD Primary Care Provider [phone] Encounter Details Date Type Department Care Team ([facility] st Contact Info) Description 08/22/2023 Orders Only [facility] [address] [place], [place] [phone] So Anderson MD [address] [place], [place] [phone] Anemia, unspecified type (Primary Dx) Social History [...] documented as of this encounter Care Teams Hydraulic Technician Relationship Specialty Start Date End Date So Anderson MD [address] [place] [phone] PCP - General Family Medicine 05/09/23 documented as of this encounter
--- OUTSIDE RECORDS SUMMARY | 2025-04-19 16:00 | XMS_ITS | Encounter Summary ---
Author Organization [employer] Address [address] [facility] [address] [place] [address] Care Team Providers Care Blasting Entryman Name Role Phone So Anderson MD Primary Care Provider Encounter Details Date Type Department Care Team (Late st Contact Info) Description 08/11/2023 Orders Only [facility] [address] [place], [place] [phone] So Anderson MD [address] [place], [place] [phone] Anemia, unspecified type (Primary Dx) Social History [...] EST) Iron 121 30 - 160 mcg/dL [facility] Total Iron Binding Capacity 321 228 - 428 mcg/dL [facility] Percent Iron Saturation 38 15 - 50 % [facility] Unsaturated Iron Binding 200 ug/dL [facility] Blood Venous blood specimen / Unknown 08/20/2023 10:13 AM EST 08/20/2023 11:36 AM EST us So Anderson MD LAB BLOOD ORDERABLES Final Resul t [facility] [address] [place], [place] [phone] * Ferritin (08/20/2023 10:13 AM EST) Ferritin 29 10 - 250 ng/mL [facility] Blood Venous blood specimen / Unknown 08/20/2023 10:13 AM EST 08/20/2023 11:36 AM EST So Anderson MD LAB BLOOD ORDERABLES Final Resul t [facility] [address] [place] [phone] documented in this encounter Visit Diagnoses Diagnosis Anemia, unspecified type- Primary documented in this encounter Additional Health Concerns Assessment Noted Time PHQ-9 Depression Total Score: 8 08/04/20 2:33 PM EST documented as of this encounter Care Teams Blasting Entryman Relationship Specialty Start Date End Date So Anderson MD [address] [place] [address] PCP - General Family Medicine 05/09/23 documented as of this encounter
--- OUTSIDE RECORDS SUMMARY | 2025-04-19 16:00 | XMS_ITS | Encounter Summary ---
Author Organization [employer] Address [address] [facility] 7t [place] [address] Care Team Providers Care Prefitter Doors Name Role Phone Oscar Ngo Primary Care Provider Unavail able So Anderson MD Primary Care Provider Encounter Details Date Type Department Care Team (Late st Contact Info) Description 03/05/2023 Orders Only [facility] MEDICINE [address] [place] [address] Provider, MD Kevin Social History Tobacco Use [...] Mammography (10/07/2022) Anatomical Region Laterality Modality Other Historical Provider HEALTH MAINTENANCE Final Result documented in this encounter Visit Diagnoses Not on filedocumented in this encounter Additional Health Concerns Assessment Noted Time PHQ-9 Depression Total Score: 12 11/06/ 023 3:04 PM EDT documented as of this encounter Care Teams Prefitter Doors Relationship Specialty Start Date End Date Oscar Ngo AGNP PCP - General Family Medicine 10/10/22 05/08/23 So Anderson MD [address] [place] [address] PCP - General Family Medicine 05/09/23 documented as of this encounter
--- OUTSIDE RECORDS SUMMARY | 2025-04-19 16:00 | XMS_ITS | Encounter Summary ---
Author Organization [employer] Address [address] [facility] 7t [place] [address] Care Team Providers Care Customer Insight Analyst Name Role Phone So Anderson MD Primary Care Provider Encounter Details Date Type Department Care Team ([facility] st Contact Info) Description 06/04/2024 Orders Only [facility] [address] [place], [place] [phone] So Anderson MD [address] [place], [place] [phone] Social History Tobacco Use Types Packs/Day Years [...] documented as of this encounter Care Teams Customer Insight Analyst Relationship Specialty Start Date End Date So Anderson MD [address] [place] [phone] PCP - General Family Medicine 05/09/23 documented as of this encounter
== END 2025-04-19 15:55 | disposition home or self-care (01) ==
LOC: HO.HGI 15:06
PROVIDERS: PCP Family Medicine; Visit Provider Nurse Practitioner Family
DX: Z01.818 Encounter for other preprocedural examination (principal); Z12.11 Encounter for screening for malignant neoplasm of colon
CPT/HCPCS: 99203

== ENCOUNTER → 2025-04-19 15:05 | Outpatient (BNVA) | payer OTHER, SELFPAY | PROVIDERS: PCP Family Medicine; Visit Provider Nurse Practitioner Family | DX: Z12.11 Encounter for screening for malignant neoplasm of colon (principal) | CPT/HCPCS: 99202 ==

== ENCOUNTER 2025-06-24 09:14 | Outpatient (REF) | payer OTHER, SELFPAY ==
--- NOTE | ~2025-06-24 | MM_ITS ---
EXAMINATION: DXA BONE DENSITY AXIAL HISTORY: Osteopenia. TECHNIQUE: [employer] Dual energy absorptiometry (DEXA) of the lumbar spine, total left hip, and femoral neck was performed. COMPARISON: There are no prior studies for comparison. FINDINGS: The bone mineral density of the lumbar spine is 1.116 g/cm2, corresponding to a T-score of -0.5, and a Z-score of -0.7. This is indicative of normal bone mineral density. The bone mineral density of the left total hip is 1.028 g/cm2, corresponding to a T-score of 0.2, and a Z-score of 0.3. This is indicative of normal bone mineral density. The bone mineral density of the left femoral neck is 0.939 g/cm2, corresponding to a T-score of -0.7, and a Z-score of -0.2. This is indicative of normal bone mineral density. FRACTURE RISK: The FRAX index suggests a risk of major osteoporotic fracture of 1.5%, and of hip fracture 0.1%. MM/XR DEXA axial skeleton IMPRESSION: Based on bone mineral density, and according to World Health Organization (WHO) criteria, the diagnosis is consistent with normal bone mineral density. Statistically, 68% of repeat scans fall within 1 SD (+/- 0.010 g/cm2 for AP spine L1-L4) and 1 SD (+/- 0.012 g/cm2 for femur total) FRAX is a trademark of the [employer]'s [place] for Metabolic Bone Disease, a World Health Organization (WHO) Collaborating Center. Electronically signed by: Owen Howell MD 06/24/2025 10:06 AM EDT
== END 2025-06-24 09:15 | disposition home or self-care (01) ==
LOC: HO.MAMMO 09:14
PROVIDERS: PCP Family Medicine; Visit Provider Internal Medicine Medical Oncology
DX: Z13.820 Encounter for screening for osteoporosis (principal); M85.80 Other specified disorders of bone density and structure, unspecified site
CPT/HCPCS: 77080

== ENCOUNTER → 2025-06-24 09:15 | Outpatient (BNV) | payer OTHER, SELFPAY | PROVIDERS: PCP Family Medicine; Visit Provider Radiology Diagnostic Radiology | DX: E28.39 Other primary ovarian failure (principal) | CPT/HCPCS: 77080 ==

== ENCOUNTER 2025-07-06 09:09 | Outpatient (REF) | payer OTHER, SELFPAY ==
--- OUTSIDE RECORDS SUMMARY | 2025-07-06 09:55 | XMS_ITS | Clinical Summary ---
Author Organization [employer] Address [address] [facility] 7t [place] [address] Care Team Providers Care Stripper Cutter Machine Name Role Phone So Anderson MD Primary Care Provider [phone] Allergies No known active allergies Medications * [...] or chew. 60 capsule 11 06/04/2024 Active solifenacin (VESIcare) 5 MG tablet Take 1 tablet (5 mg) by mouth Once per day. Swallow tablet whole; do not crush, chew, or split. 30 tablet 11 06/06/2025 06/06/20 26 Active Active Problems Problem Noted Date Diagnosed Date Urinary incontinence 06/18/2025 Assessment & Plan (06/18/2025 6:21 PM EDT): - likely mixed, stress and urge - trial of solifenacin - suggested to try Kegel exercise - consider referral to urogynecology Atypical ductal hyperplasia of left breast 06/18 Assessment & Plan (06/18/2025 6:25 PM EDT): - Mammography on 11/12/2024 BI-RADS 2 - Left breast papilloma excisional biopsy by Dr. Alexandra on 01/26/2025, pathology report intraductal papilloma with extensive papillomatosis and sclerosing adenosis. Focal lobular neoplasia. Focal atypical ductal hyperplasia. - Seen by Dr. Madrigal on 03/31/2025. Started on tamoxifen 20 mg daily. - Continue tamoxifen. Reviewed its side effects. Recommended to follow-up with travel counselor. Overweight 11/08/2024 Assessment & Plan (11/08/2024 3:42 [...] History of smoking 05/31/2024 Assessment & Plan (06/18/2025 6:26 PM EDT): - less than 20 pack years - quit in 2020 - continue working on maintaining non-smoking status - Encouraged not to smoke especially with tamoxifen Assessment & Plan (05/31/2024 5:21 AM EDT): [...] hormone therapy Moderate major depression, single episode (CMS/H CC) 10/06/2023 Assessment & Plan (11/08/2024 3:39 PM EDT): [...] (11/08/2024 3:36 PM EDT): - following with [facility] - Last Cotest on 07/22/22 NILM with negative high-risk HPV - Perimenopausal Assessment & Plan (05/31/2024 5:18 AM EDT): - following with [facility] - Last PAP on 07/22/22 NILM with negative high-risk HPV - ?Rachael-menopausal - Check lab Assessment & Plan (08/10/2023 5:04 PM EST): - following with [facility] - Last PAP on 07/22/22 NILM with negative high-risk HPV - ?Rachael-menopausal - Check lab - Transvaginal US History of miscarriage 08/04/2023 Family history of diabetes mellitus type II 07/25 Family history of Alzheimer's disease 08/04/2023 History of femur fracture 08/04/2023 Insomnia 12/06/2022 Assessment & Plan (06/18/2025 6:26 PM EDT): - She had Flint = 12 and sleep study was ordered by previous PCP in November 2022 - continue improving sleep hygiene - stress reduction - take melatonin 3 hours prior to desired bedtime - discussed about judicious use of marijuana Assessment & Plan (11/08/2024 9:42 AM EDT): - She had Flint = 12 and sleep study was ordered by previous PCP in November 2022 - continue improving sleep hygiene - stress reduction - take melatonin 3 hours prior to desired bedtime - discussed about judicious use of marijuana Assessment & Plan (08/10/2023 5:03 PM EST): - She had Flint = 12 and sleep study was ordered by previous PCP in November 2022 - continue improving sleep hygiene - stress reduction - take melatonin 3 hours prior to desired bedtime - discussed about judicious use of marijuana Assessment & Plan (12/06/2022 4:04 PM EDT): Flint = 12 I asked Dorie to call her during our appointment. She was able to call him and he kindly obliged helping us with her Flint questionnaire. I ordered her a polysomnography. I requested a home test in the notes. F/up 1 month. Anemia 12/06/2022 Assessment & Plan (06/08/2025 4:42 PM EDT): - most recent CBC in Apr 2024 was normal - monitor symptoms with periodic lab - currently asymptomatic Assessment & Plan (11/08/2024 3:37 PM EDT): [...] (08/10/2023 5:08 PM EST): - refer to [facility] Assessment & Plan (12/06/2022 4:04 PM EDT): [...] Encounters Date Type Department Care Team Description 06/24/2025 Orders Only [facility] External Provider, [facility] 06/06/2025 1:45 PM EDT Office Visit [facility] [address] [place] [address] So Anderson MD Anemia, unspecified type (Primary Dx); Encounter for immunization; Mixed stress and urge urinary incontinence; Vitamin deficiency; Screening for lipid disorders; Screening for diabetes mellitus; Atypical ductal hyperplasia of left breast; Insomnia, unspecified type; History of smoking 06/06/2025 Travel 06/03/2025 Telephone [facility] [address] [place] [address] So Anderson MD chartprep from Last 3 Months Immunizations Immunization Administration Dates Next Due Hep B, adult 05/17/2019, 9,11/11/2018,2006,06/30/2007 Influenza Quadrivalent Adjuvanted 05/21/2022 Influenza injectable quadriv alent IIV4 with preservative 06/25/2023 Influenza injectable quadriv alent preservative free 05/25/2021,09/04/2018,06/12/2017 Influenza, IIV3, injectable 06/30/2007 Influenza, Split (incl. maurilio fied surface antigen) 06/05/2012 Influenza, seasonal, injecta ble, preservative free 06/06/2025,05/24/2024 TD (adult), 2 Lf tetanus tox oid, preservative free, adsorbed 06/30/2007,11/04/2005 Tdap 11/08/2024,10/19/2013 Family History Medical History Relation Name Comments Breast cancer Maternal Grandmother Relation Name Status Comments Maternal Grandmother Alive Social History Tobacco Use Types Packs/Day Years Used Date Smoking Tobacco: Never Smokeless Tobacco: Never Tobacco Cessation:Counseling Given: Not Answered Comments:marijuana Depression Answer Date Recorded Patient Health Questionnaire-9 Score 2 06/07/2025 Patient Health Questionnaire-9 Score 2 06/07/2025 Last PHQ-9: Questionnaire Data Not on file 1 Housing Stability Answer Date Recorded What is [...] Answer Date Recorded Patient Health Questionnaire-2 Score 0 06/07/2025 Internet Access Answer Date Recorded Internet Access Q1 Yes 11/08/2024 Internet Access Q2 Not on file 11/08/2024 Comments Unknown Intention Date Recorded No desire to become (finding) 1 Sex and Gender Information Value Date Recorded Sex Assigned at Female 06/24/2022 10:18 AM EDT Legal Sex Female 10:18 AM EDT Gender Identity Female 06/24/2022 10:18 AM EDT Sexual Orientation Choose not to disclose 2021 10:18 AM EDT Last Filed Vital Signs Vital Sign Reading Time Taken Comments Blood Pressure 100/68 06/06/2025 2:00 PM EDT Pulse 65 06/06/2025 2:00 PM EDT Temperature 37.1 C (98.8 F) 06/06/2025 2:00 PM EDT Respiratory Rate 14 06/06/2025 2:00 PM EDT Oxygen Saturation 98% 06/06/2025 2:00 PM EDT Inhaled Oxygen Concentration - - Weight 71.4 kg (157 lb 6.4 oz) 06/06/2025 2:00 P M EDT Height 157.5 cm (5' 2 ) 11/08/2024 9:43 AM EDT Body Mass Index 28.79 11/08/2024 9:43 AM EDT Plan of Treatment Health Maintenance Due Date Last Done Comments CT Colonography 1980 Colonoscopy 1979 Colorectal Cancer Screening 1980 FIT DNA/Cologuard 1979 FIT 1979 FOBT 1980 Sigmoidoscopy 1980 HPV Vaccines (1 - 3-dose series) 1994 COVID-19 Vaccine ( season) 2025 10/05/2021, 02/27/2021, 01/30/2021 Pap Smear 07/22/2025 07/22/2022 Disability Screening 11/08/2025 11/08/2024 SDOH Screening 11/08/2025 11/08/2024 Alcohol/Substance Use Screening 06/06/2026 06/06/2025 Depression Screening 06/07/2026 06/07/2025, 06/07/20 Family Planning (PISQ) 06/18/2026 06/18/2025 Tobacco Screening 06/18/2026 06/18/2025 Mammogram 11/12/2026 11/12/2024, 10/24, 10/24/2023, Additional history [...] 08/08/2023 , 11/08/2022, 06/26/2020 Influenza Vaccine Completed 06/06/2025, , 06/25/2023, Additional history exists HIB Vaccines Aged Out [...] Procedure Name Priority Date/Time Associated Diagnosis Comments BD DEXA AXIAL Routine 06/24/2025 9:46 AM EDT BI MAMMOGRAM DIAGNOSTIC TOMOSYNTHESIS BILATERAL [...] Recently Relevant to Health Maintenance Results * BD DEXA Axial (06/24/2025 9:46 AM EDT) Anatomical Region Laterality Modality Body Radiographic Bri ging 06/24/2025 9:46 AM EDT Narrative 06/24/2025 10:09 AM EDT [facility] [address] [place] [address] Mammography Report Signed Patient: Dorie Kiser I MR#: [id number] : 1980 Acct:[id number] Age/Sex: 44 / F ADM Date: 06/24/25 Loc: HO.MAMMO Attending Dr: Adrian Madrigal MD Ordering Physician: Adrian Madrigal MD Results: Date of Service: 06/24/25 Follow Up: Procedure(s): XR DEXA axial skeleton Accession Number(s): [id number] cc: Adrian Madrigal MD; So Anderson MD Reason For Exam: Osteopenia. EXAMINATION: DXA BONE DENSITY AXIAL HISTORY: Osteopenia. TECHNIQUE: [employer] Dual energy absorptiometry (DEXA) of the lumbar spine, total left hip, and femoral neck was performed. COMPARISON: There are no prior studies for comparison. FINDINGS: The bone mineral density of the lumbar spine is 1.116 g/cm2, corresponding to a T-score of -0.5, and a Z-score of -0.7. This is indicative of normal bone mineral density. The bone mineral density of the left total hip is 1.028 g/cm2, corresponding to a T-score of 0.2, and a Z-score of 0.3. This is indicative of normal bone mineral density. The bone mineral density of the left femoral neck is 0.939 g/cm2, corresponding to a T-score of -0.7, and a Z-score of -0.2. This is indicative of normal bone mineral density. FRACTURE RISK: The FRAX index suggests a risk of major osteoporotic fracture of 1.5%, and of hip fracture 0.1%. MM/XR DEXA axial skeleton IMPRESSION: Based on bone mineral density, and according to World Health Organization (WHO) criteria, the diagnosis is consistent with normal bone mineral density. Statistically, 68% of repeat scans fall within 1 SD (+/- 0.010 g/cm2 for AP spine L1-L4) and 1 SD (+/- 0.012 g/cm2 for femur total) FRAX is a trademark of the [employer]'s [place] for Metabolic Bone Disease, a World Health Organization (WHO) Collaborating Center. Electronically signed by: Owen Howell MD 06/24/2025 10:06 AM EDT Dictated By: Owen Howell MD Signed By: <Electronically signed by Owen Howell MD in OV> 06/24/25 1006 DD/ TD/TT: 06/24/25 0945 Logistics Analytics Manager: Procedure Note Donotuseinterpreter, Image - 06/24/2025 [place] [facility] [address] [place], [place] [address] Mammography Report Signed Patient: Dorie Kiser IMR#: [id number] : 1980Acct:[id number] Age/Sex: 44 / FADM Date: 06/24/25 Loc: HO.MAMMO Attending Dr: Adrian Madrigal MD Ordering Physician: Adrian Madrigal MDResults: Date of Service: 06/24/25Follow Up: Procedure(s): XR DEXA axial skeleton Accession Number(s): [id number] cc: Adrian Madrigal MD; So Anderson MD Reason For Exam: Osteopenia. EXAMINATION: DXA BONE DENSITY AXIAL HISTORY: Osteopenia. TECHNIQUE: [employer] Dual energy absorptiometry (DEXA) of the lumbar spine, total left hip, and femoral neck was performed. COMPARISON: There are no prior studies for comparison. FINDINGS: The bone mineral density of the lumbar spine is 1.116 g/cm2, corresponding to a T-score of -0.5, and a Z-score of -0.7. This is indicative of normal bone mineral density. The bone mineral density of the left total hip is 1.028 g/cm2, corresponding to a T-score of 0.2, and a Z-score of 0.3. This is indicative of normal bone mineral density. The bone mineral density of the left femoral neck is 0.939 g/cm2, corresponding to a T-score of -0.7, and a Z-score of -0.2. This is indicative of normal bone mineral density. FRACTURE RISK: The FRAX index suggests a risk of major osteoporotic fracture of 1.5%, and of hip fracture 0.1%. MM/XR DEXA axial skeleton IMPRESSION: Based on bone mineral density, and according to World Health Organization (WHO) criteria, the diagnosis is consistent with normal bone mineral density. Statistically, 68% of repeat scans fall within 1 SD (+/- 0.010 g/cm2 for AP spine L1-L4) and 1 SD (+/- 0.012 g/cm2 for femur total) FRAX is a trademark of the [employer] [place] for Metabolic Bone Disease, a World Health Organization (WHO) Collaborating Center. Electronically signed by: Owen Howell MD 06/24/2025 10:06 AM EDT Dictated By: Owen Howell MD Signed By: <Electronically signed by Owen Howell MD in OV> 06/24/25 1006 DD/ TD/TT: 06/24/2545 Logistics Analytics Manager: [facility] External Provider IMG DXA PROCEDURES Final Result * BI Mammogram Diagnostic Tomosynthesis Bilateral (11/12/2024 8:30 AM EDT) Anatomical Region Laterality Modality Breast Bilateral Mammography 11/12/2024 8:30 AM EDT Narrative 11/12/2024 10:22 AM EDT [address] [place] [address] Mammography Report Signed Patient: Dorie Kiser I MR#: [id number] : 1980 Acct:[id number] Age/Sex: 44 / F ADM Date: 11/12/24 Loc: [facility] Attending Dr: Vicky Weiner CNM Ordering Physician: Vicky Weiner CNM Results: 2Beni gn Findings Date of Service: 11/12/24 Follow Up: 1 Year From Orig ina Mammogram Procedure(s): MM tomosynthesis diagnostic BI Accession Number(s): [id number] cc: Vicky Weiner CNM; So Anderson MD [...] 11/12/24 1019 DD/ 0830 TD/TT: 11/12/24 0849 Logistics Analytics Manager: Procedure Note Donotuseinterpreter, Image - 11/12/2024 [facility] [address] [place] [address] Mammography Report Signed Patient: Dorie Kiser [facility]#: [id number] : 1980Acct:[id number] Age/Sex: 44 / FADM Date: 11/12/24 Loc: HO.MAMMO Attending Dr: Vicky Weiner CNM Ordering Physician: Vicky WeinerMResults: 2Beni gn Findings Date of Service: 11/12/24Follow Up: 1 Year From [facility] Mammogram Procedure(s): MM tomosynthesis diagnostic BI Accession Number(s): [id number] cc: Vicky Weiner CNM; So Anderson MD [...] 11/12/24 1019 DD/ 0830 TD/TT: 11/12/24 0849 Logistics Analytics Manager: [facility] External Provider IMG BI PROCEDURES Final Result * Hepatitis C Antibody with Reflex to HCV, RNA, Quantitative, Real-Time PCR (08/08/2023 9:48 AM EST) Hepatitis C Antibody Nonreactive Nonreactive [facility] Comment:Antibodies to HCV no t detected; does not exclude early acuteHCV infection. Blood Venous blood specimen / Unknown 08/08/2023 9:48 AM EST 08/08/2023 11:11 AM EST So Anderson MD LAB BLOOD ORDERABLES Final Resul t Performing Organization Address [facility]/ZIP Co de Phone Number [facility] [address] [place] [phone] * HIV-1/2 Antigen and Antibodies, Fourth Generation, with Reflexes (08/08/2023 9:48 AM EST) HIV AB/AG Nonreactive Nonreactive [facility] Comment:HIV-1 p24 Ag and/or HIV-1/HIV-2 Ab not detected.A test result that is nonreactive does not exclude thepossibility of exposure to or infection with HIV-1 and/orHIV-2. Nonreactive results in this assay for individualswith prior exposure to HIV-1 and/or HIV-2 may be due toantigen and antibody levels that are below the limit ofdetection of this assay.The [employer] HIV Ag/Ab Combo assay result andsupplemental assay results should be interpreted inconjunction with the patient's clinical presentation,history and other laboratory results. If the results areinconsistent with clinical evidence, additional testing issuggested to confirm the result. Blood Venous blood specimen / Unknown 08/08/2023 9:48 AM EST 08/08/2023 11:11 AM EST us So Anderson MD LAB BLOOD ORDERABLES Final Resul t Performing Organization Address City/[facility]/ZIP Co de Phone Number [facility] [address] [place] [phone] * Pap Smear (07/22/2022 10:19 AM EST) 07/22/2022 10:1 9 AM EST 07/22/2022 12:00 PM EST [facility] - 08/12/2022 3:54 PM EST ----- ------- Name: Dorie Kiser I Age/Sex: 42/F : 1980 Unit#: [id number] Attend Dr: Vicky Weiner CNM Re07/22/22 Status: DEP REF Location: [facility] Disch: ----- ------- SPEC : [id number] RECD: 07/22/22-1199 STATUS: VIK ARMENDARIZ NUM: [id number] LEMUEL: 07/22/22-101[address] [facility] [address]: Vicky Weiner CNM ENTERED: 07/23/22-45 SP TYPE: Pap Smr [facility] DR: ORDERED: Pap Smear Interpretation Satisfactory for evaluation. Negative for intraepithelial lesion or malignancy. HPV mRNA E6/E7: NOT DETECTED This assay detects E6/E7 viral messenger RNA (mRNA) from 14 high-risk HPV types (16, 18, 31, 33, 35, 39, 45, 51, 52, 56, 58, 59, 66, 68) HPV testing performed by [employer], [place], [place]. See reference laboratory portion of the EMR for entire report. Clinical Information LMP: 07/19/22 Previous PAP test: 04/17/21, WNL Material Received ThinPrep-Cervical ----- ------- Signed (signature on file) Ruma Aponte 08/12/22 1554 ----- ------- END OF REPORT [facility] External Provider LAB [facility]T [facility] ORDERABLES Final Result Performing Organization Address City/State/[facility] Co de Phone Number [facility] [address] [place] [address] [phone] from Last 3 Months or Most Recently Relevant to Health Maintenance Insurance [facility] Care Teams Stripper Cutter Machine Relationship Specialty Start Date End Date So Anderson MD [address] [place] [phone] PCP - General Family Medicine 05/09/23
--- OUTSIDE RECORDS SUMMARY | 2025-07-06 09:55 | XMS_ITS | Encounter Summary ---
Author Organization [employer] Address [address] [facility] 7t [place] [address] Care Team Providers Care Food Beverage Manager Name Role Phone So Anderson MD Primary Care Provider [phone] Encounter Details Date Type Department Care Team ([facility] st Contact Info) Description 06/04/2024 Orders Only [facility] [address] [place], [place] [phone] So Anderson MD [address] [place], [place] [phone] Social History Tobacco Use Types Packs/Day Years [...] documented as of this encounter Care Teams Food Beverage Manager Relationship Specialty Start Date End Date So Anderson MD [address] [place] [phone] PCP - General Family Medicine 05/09/23 documented as of this encounter
--- OUTSIDE RECORDS SUMMARY | 2025-07-06 09:55 | XMS_ITS | Encounter Summary ---
Author Organization [employer] Address [address] [facility] 7t [place] [address] Care Team Providers Care Hl7 Interface Developer Name Role Phone Oscar Ngo Primary Care Provider Unavail able So Anderson MD Primary Care Provider [phone] Encounter Details Date Type Department Care Team (Late st Contact Info) Description 03/05/2023 Orders Only [facility] [address] [place] [address] Provider, MD Kevin Social History Tobacco Use [...] documented as of this encounter Care Teams Hl7 Interface Developer Relationship Specialty Start Date End Date Oscar Ngo AGNP PCP - General Family Medicine 10/10/22 05/08/23 So Anderson MD [address] [place] [address] PCP - General Family Medicine 05/09/23 documented as of this encounter
--- OUTSIDE RECORDS SUMMARY | 2025-07-06 09:55 | XMS_ITS | Encounter Summary ---
Author Organization [employer] Address [address] [facility] [address] [place] [address] Care Team Providers Care Autocad Draftsman Name Role Phone So Anderson MD Primary Care Provider [phone] Encounter Details Date Type Department Care Team (Late st Contact Info) Description 08/11/2023 Orders Only [facility] [address] [place], [place] [phone] So Anderson MD [address] [place], [place] [phone] Anemia, unspecified type (Primary Dx) Social History [...] EST) Iron 121 30 - 160 mcg/dL [facility] Total Iron Binding Capacity 321 228 - 428 mcg/dL [facility] Percent Iron Saturation 38 15 - 50 % [facility] Unsaturated Iron Binding 200 ug/dL [facility] Blood Venous blood specimen / Unknown 08/20/2023 10:13 AM EST 08/20/2023 11:36 AM EST us So Anderson MD LAB BLOOD ORDERABLES Final Resul t [facility] [address] [place], [place] [phone] * Ferritin (08/20/2023 10:13 AM EST) Ferritin 29 10 - 250 ng/mL [facility] Blood Venous blood specimen / Unknown 08/20/2023 10:13 AM EST 08/20/2023 11:36 AM EST So Anderson MD LAB BLOOD ORDERABLES Final Resul t [facility] [address] [place] [phone] documented in this encounter Visit Diagnoses Diagnosis Anemia, unspecified type- Primary documented in this encounter Additional Health Concerns Assessment Noted Time PHQ-9 Depression Total Score: 8 08/04/20 2:33 PM EST documented as of this encounter Care Teams [employer] Draftsman Relationship Specialty Start Date End Date So Anderson MD [address] [place] [address] PCP - General Family Medicine 05/09/23 documented as of this encounter
--- OUTSIDE RECORDS SUMMARY | 2025-07-06 09:55 | XMS_ITS | Encounter Summary ---
Author Organization [employer] Address [address] [facility] [address] [place] [address] Care Team Providers Care Pin Drafting Machine Tender Name Role Phone So Anderson MD Primary Care Provider [phone] Encounter Details Date Type Department Care Team ([facility] st Contact Info) Description 08/22/2023 Orders Only [facility] [address] [place], [place] [phone] So Anderson MD [address] [place], [place] [phone] Anemia, unspecified type (Primary Dx) Social History [...] documented as of this encounter Care Teams Pin Drafting Machine Tender Relationship Specialty Start Date End Date So Anderson MD [address] [place] [phone] PCP - General Family Medicine 05/09/23 documented as of this encounter
[2025-07-06 11:52] LABS: Appearance Urine Cloudy; Glucose Urine UA Negative (Negative); PH 5.0 (5.0-9.0); Specific Gravity - Urine 1.020 (1.005-1.025); UMIC TRIGGER UACC YES
[2025-07-06 12:06] LABS: MANUAL DIFF FLAG NO
[2025-07-06 12:11] LABS: Hematocrit 36.8 % (37.0-47.0); Hemoglobin 12.1 g/dl (12.0-16.0); Imm Gran Abs Auto 0.02 X10*3/uL (0.00-0.03); Imm Gran Pct Auto 0.3 % (0.0-0.4); Lymphocytes Absolute Auto 3.0 X10*3/uL (1.2-4.9); Mean Corpuscular HGB Conc 32.9 g/dl (31.0-35.0); Mean Corpuscular Hemoglobin 31.8 pg (27.0-33.0); Mean Corpuscular Volume 96.8 fL (80.0-98.0); NRBC Abs Auto 0.000 X10*3/uL (0.0-0.012); NRBC Pct Auto 0.0 /100WBC (0.0-0.2); Platelet Count 237 X10*3/uL (160-400); Red Blood Count 3.80 X10*6/uL (4.20-5.50); White Blood Count 7.2 X10*3/uL (4.8-10.8)
[2025-07-06 12:57] LABS: Alanine Aminotransferase 17 U/L (0-31); Albumin Level 4.2 g/dL (3.5-5.0); Alkaline Phosphatase 43 U/L (39-117); Anion Gap 8 (12-20); Aspartate Amino Transferase 22 U/L (5-31); Blood Urea Nitrogen 11 mg/dL (9-16); Calcium 9.2 mg/dL (8.4-10.2); Carbon Dioxide 26 mmol/L (22-29); Chloride 108 mmol/L (96-108); Cholesterol 180 mg/dL (<200); Estimated Glomerular Filt Rate > 60; HDL Cholesterol 63 mg/dL (>40); Iron 92 mcg/dL (30-160); Percent Iron Saturation 29 % (15-50); Potassium 4.4 mmol/L (3.3-5.1); Sodium 138 mmol/L (135-145); Total Iron Binding Capacity 316 mcg/dL (228-428); Total Protein 7.0 g/dL (6.5-8.0); Triglycerides 109 mg/dL (<150); Unsaturated Iron Binding 224 ug/dL
[2025-07-06 12:59] LABS: Ferritin 42 ng/mL (10-250)
== END 2025-07-06 09:10 | disposition home or self-care (01) ==
LOC: HO.HHCL 09:09
PROVIDERS: PCP Family Medicine; Visit Provider Family Medicine
DX: Z13.1 Encounter for screening for diabetes mellitus (principal); Z13.220 Encounter for screening for lipoid disorders; N39.46 Mixed incontinence; D64.9 Anemia, unspecified; E56.9 Vitamin deficiency, unspecified
CPT/HCPCS: 36415; 80053; 80061; 81001; 82306; 82728; 83036; 83540; 85025